=== PATIENT | female | born 2000 | race Caucasian/White ===

== ENCOUNTER 2021-02-09 16:17 | Outpatient (CLI) | payer OTHER, SELFPAY ==
[2021-02-09 16:37] LABS: Basophils Absolute Auto 0.01 K/mm3 (0.00-0.10); Basophils Percent Auto 0.2 % (0.0-1.0); Eosinophils Absolute Auto 0.13 K/mm3 (0.02-0.50); Hematocrit 31.7 % (35.0-49.0); Hemoglobin 10.4 g/dL (12.0-15.0); Immature Granulocyte Absolute 0.02 K/mm3 (0.00-0.00); Immature Granulocyte Percent A 0.3 % (0.0-0.0); Lymphocytes Absolute Auto 1.48 K/mm3 (1.10-4.50); Lymphocytes Percent Auto 22.5 % (18.0-42.0); Mean Corpuscular HGB Conc 32.8 g/dL (32.0-36.0); Mean Corpuscular Hemoglobin 29.9 pg (27.0-31.0); Mean Corpuscular Volume 91.1 fL (78.0-102.0); Mean Platelet Volume 10.1 fl (9.2-11.8); Monocytes Absolute Auto 0.74 K/mm3 (0.10-0.90); Monocytes Percent Auto 11.3 % (2.0-11.0); Neutrophils Absolute Auto 4.2 K/mm3 (1.7-7.2); Neutrophils Percent Auto 63.7 % (50.0-70.0); Platelet Count Result 254 K/mm3 (150-420); Red Blood Count 3.48 M/mm3 (4.20-5.40); Red Cell Distribution Width 13.2 % (11.6-14.4); White Blood Count 6.6 K/mm3 (4.8-10.8)
[2021-02-09 16:41] LABS: Add Urine Microscopic? YES; Appearance Urine Cloudy (Clear); Bilirubin Urine 1+ (Negative); Blood Urine Negative (Negative); Color Urine Yellow (Yellow); Glucose Urine UA Trace (Negative); Ketones Urine Trace (Negative); Leukocyte Esterase Ur 1+ LEU/UL (Negative); Nitrate Urine Negative (Negative); Protein Urine Trace (Negative); Specific Grav Ur 1.025 (1.010-1.020); Urobilinogen Urine >=8.0 mg/dL (0.2-1.0); pH Urine 6.5 (5.0-8.0)
[2021-02-09 16:48] LABS: RBC Urine 0-2 /hpf (0-2); Squamous Epithelial Cell Urine Many /hpf (Few)
[2021-02-09 16:49] LABS: Bacteria Urine 4+ /hpf; Monoscreen Negative (Negative); Negative Monotest Control Negative (Negative); Positive Monotest Control Positive (Positive)
[2021-02-09 17:02] LABS: Alanine Aminotransferase 29 U/L (14-59); Albumin Level 2.5 g/dL (3.4-5.0); Alkaline Phosphatase 80 U/L (46-116); Anion Gap 8 mmol/L (8-16); Aspartate Amino Transferase 14 U/L (15-37); Bilirubin,Total 0.2 mg/dL (0.00-1.00); Blood Urea Nitrogen 6 mg/dL (7-18); Calcium 8.2 mg/dL (8.5-10.1); Carbon Dioxide 27 mmol/L (21-32); Chloride 103 mmol/L (98-108); Estimated Glomerular Filt Rate > 60; Glucose 95 mg/dL (70-99); Osmolality Calculated 283 mOsm/kg (285-295); Potassium 3.3 mmol/L (3.5-5.1); Sodium 138 mmol/L (136-145); Thyroid Stimulating Hormone 1.26 uIU/mL (0.36-3.74); Total Protein 6.6 g/dL (6.4-8.2)
[2021-02-09 17:26] LABS: SARS-CoV-2 RNA PCR Negative (Negative)
== END 2021-02-09 16:18 | disposition home or self-care (01) ==
LOC: CHSLAB 16:20
PROVIDERS: PCP Family Medicine; Visit Provider Family Medicine
DX: R53.83 Other fatigue (principal); R19.7 Diarrhea, unspecified; Z20.822 Contact with and (suspected) exposure to COVID-19
CPT/HCPCS: 36415; 80053; 81001; 84443; 85025; 86308; 87086; 87088; C9803; U0003; U0005

== ENCOUNTER 2021-04-10 09:05 | Observation (INO) | payer OTHER, SELFPAY ==
[2021-04-10] VITALS (16 sets, daily range): BP systolic 90–113; BP diastolic 32–75; PULSE 83–137; TEMP 36.3–36.6; BMI 29.2
--- NOTE | 2021-04-10 09:46 | OBADM ---
This patient, Val Rodriguez, admitted to the OB room 115 at 0905 for observation. Patient/family oriented to hospital policies and general routines including ID bracelet, bed and alarms, visiting hours, pain management, procedures, bathroom and other care routines, personal items, smoking policy, room service/diet, and visiting hours. Patient/Family are encouraged to report perceived risks to care and to ask questions if they do not understand what they are told or what they should do.
[2021-04-10 10:58] LABS: Add Urine Microscopic? YES; Appearance Urine Cloudy (Clear); Bacteria Urine Trace /hpf; Bilirubin Urine Negative (Negative); Blood Urine Negative (Negative); Color Urine Yellow (Yellow); Glucose Urine UA Negative (Negative); Ketones Urine Negative (Negative); Leukocyte Esterase Ur 1+ LEU/UL (Negative); Mucus Urine Rare /lpf; Nitrate Urine Negative (Negative); Protein Urine Negative (Negative); RBC Urine 0-2 /hpf (0-2); Specific Grav Ur 1.013 (1.001-1.035); Squamous Epithelial Cell Urine Many /hpf (Few); Urobilinogen Urine Negative mg/dL (<2.0); WBC Urine 0-3 /hpf
[2021-04-10 11:19] LABS: Fetal Fibronectin Negative
--- NOTE | 2021-04-10 11:39 | PC.NURSE ---
Dr. Moreno informed FFN is negative, but pt continues to contract every 2 mins.
[2021-04-10] MEDS: TERBUTALINE SULFATE 1 MG/ML VIAL 0.25 MG SUB-Q ×2 (12:01→13:41)
--- NOTE | 2021-04-16 07:48 | PM.OBTRLD ---
OB - Triage/Final Diagnosis Visit Information Comments/Additional reasons for admission: I have assessed the risk for this patient, Val Rodriguez, and determined that she would benefit from observation care. Evaluation Laboratory results: Laboratory Tests 04/10/21 04/10/21 10:22 10:24 Urine Color Yellow Urine Appearance Cloudy H Urine pH 6.0 Ur Specific [place] 1.013 Urine Protein Negative Urine Glucose (UA) Negative Urine Ketones Negative Ur Blood (Man) Negative Urine Nitrate Negative Urine Bilirubin Negative Urine Urobilinogen Negative Leukocyte Esterase Rfl 1+ H Urine RBC 0-2 Urine WBC 0-3 Ur Squamous Epith Cells Many H Urine Bacteria Trace Urine Mucus Rare Fibronectin Negative Final Diagnosis (1) Back pain affecting : Code(s): O99.891 - Other specified diseases and conditions complicating ; M54.9 - Dorsalgia, unspecified Status: Acute (2) Pelvic pressure in : Code(s): O26.899 - Other specified related conditions, unspecified trimester; R10.2 - Pelvic and perineal pain Status: Acute
== END 2021-04-10 16:26 | disposition home or self-care (01) ==
LOC: ANHLDR 04-12 14:53 → ANHOBPP 04-12 14:53
PROVIDERS: Admitting Provider Obstetrics & Gynecology; PCP Family Medicine; Visit Provider Obstetrics & Gynecology
DX: O26.893 Other specified pregnancy related conditions, third trimester (principal); R10.2 Pelvic and perineal pain; M54.9 Dorsalgia, unspecified; Z3A.33 33 weeks gestation of pregnancy
CPT/HCPCS: 81001; 82731; G0378; G0379; J3105

== ENCOUNTER 2021-04-15 14:59 | Observation (INO) | payer OTHER, SELFPAY ==
--- NOTE | 2021-04-15 15:20 | OBADM ---
This patient, Val Rodriguez, admitted to the OB room OB Post 116 for observation. Patient/family oriented to hospital policies and general routines including ID bracelet, bed and alarms, visiting hours, pain management, procedures, bathroom and other care routines, personal items, smoking policy, room service/diet, and visiting hours. Patient/Family are encouraged to report perceived risks to care and to ask questions if they do not understand what they are told or what they should do.
[2021-04-15 15:21] VITALS: BP 112/61; PULSE 125
[2021-04-15 15:30] VITALS: BP 112/59; PULSE 109
[2021-04-15 15:46] VITALS: BP 110/71; PULSE 110
[2021-04-15 16:00] VITALS: BP 105/66; PULSE 106; BMI 28.9
[2021-04-15 16:15] VITALS: BP 106/67; PULSE 100
[2021-04-15] MEDS: TERBUTALINE SULFATE 1 MG/ML VIAL 0.25 MG SUB-Q (16:28)
[2021-04-15] MEDS: NIFEdipine 30 MG TAB.ER.24 PO (17:35)
--- NOTE | 2021-05-13 19:06 | PM.OBTRLD ---
OB - Triage/Final Diagnosis Visit Information Comments/Additional reasons for admission: I have assessed the risk for this patient, Val Rodriguez, and determined that she would benefit from observation care. Final Diagnosis (1) False labor: Code(s): O47.9 - False labor, unspecified Status: Acute
== END 2021-04-15 18:35 | disposition home or self-care (01) ==
PROVIDERS: Admitting Provider Obstetrics & Gynecology; PCP Family Medicine; Visit Provider Obstetrics & Gynecology
DX: O47.03 False labor before 37 completed weeks of gestation, third trimester (principal); Z3A.34 34 weeks gestation of pregnancy
CPT/HCPCS: 96372; A9270; G0378; G0379; J3105

== ENCOUNTER 2021-04-27 21:31 | Observation (INO) | payer OTHER, SELFPAY ==
[2021-04-27] VITALS (9 sets, daily range): BP systolic 93–116; BP diastolic 58–75; PULSE 89–110; RESP 18; TEMP 37.1; BMI 28.9
--- NOTE | 2021-04-27 21:31 | OBADM ---
This patient, Val Rodriguez, admitted to the OB room Labor/Delivery/Recovery 106 for observation. Patient/family oriented to hospital policies and general routines including ID bracelet, bed and alarms, visiting hours, pain management, procedures, bathroom and other care routines, personal items, smoking policy, room service/diet, and visiting hours. Patient/Family are encouraged to report perceived risks to care and to ask questions if they do not understand what they are told or what they should do.
--- NOTE | 2021-04-27 21:31 | LDADM ---
This patient, Val Rodriguez, was admitted to Labor/Delivery/Recovery 106 on 04/27/21 at 21:31. Plans for labor, pain management and were discussed with patient. Patient/family oriented to hospital policies and general routines including ID bracelet, bed and alarms, visiting hours, pain management, procedures, bathroom and other care routines, personal items, smoking policy, room service/diet and guest tray routines, infant security routines, and visiting hours. Patient/Family are encouraged to report perceived risks to care and to ask questions if they do not understand what they are told or what they should do. See OBIX for further documentation.
[2021-04-27] MEDS: NIFEdipine 10 MG CAPSULE PO (22:30)
[2021-04-27 22:47] LABS: Add Urine Microscopic? YES; Appearance Urine Cloudy (Clear); Bacteria Urine Trace /hpf; Bilirubin Urine Negative (Negative); Blood Urine Negative (Negative); Color Urine Yellow (Yellow); Glucose Urine UA 1+ mg/dL (Negative); Ketones Urine Negative (Negative); Leukocyte Esterase Ur 3+ LEU/UL (Negative); Mucus Urine Moderate /lpf; Nitrate Urine Negative (Negative); Protein Urine 1+ mg/dL (Negative); RBC Urine 0-2 /hpf (0-2); Specific Grav Ur 1.019 (1.001-1.035); Squamous Epithelial Cell Urine Many /hpf (Few); Transitional Epi Cells Urine Rare /hpf (None Seen); WBC Urine 16-20 /hpf
[2021-04-27] MEDS: LACTATED RINGERS 1,000 ML 999 ML IV CONT (23:30)
[2021-04-28 00:01] VITALS: BP 109/56; PULSE 107
[2021-04-28 00:02] VITALS: BP 109/56; PULSE 107
[2021-04-28 00:16] VITALS: BP 105/53; PULSE 104
--- NOTE | 2021-05-07 07:53 | PM.OBTRLD ---
OB - Triage/Final Diagnosis Visit Information Comments/Additional reasons for admission: I have assessed the risk for this patient, Val Rodriguez, and determined that she would benefit from observation care. Evaluation Laboratory results: Laboratory Tests 04/27/21 22:33 Urine Color Yellow Urine Appearance Cloudy H Urine pH 7.0 Ur Specific [place] 1.019 Urine Protein 1+ H Urine Glucose (UA) 1+ H Urine Ketones Negative Ur Blood (Man) Negative Urine Nitrate Negative Urine Bilirubin Negative Urine Urobilinogen 4.0 H Leukocyte Esterase Rfl 3+ H Urine RBC 0-2 Urine WBC 16-20 H Ur Squamous Epith Cells Many H Ur Transition Epith Cell Rare Urine Bacteria Trace Urine Mucus Moderate H Final Diagnosis (1) Pelvic pressure in : Code(s): O26.899 - Other specified related conditions, unspecified trimester; R10.2 - Pelvic and perineal pain Status: Acute
== END 2021-04-28 01:06 | disposition home or self-care (01) ==
PROVIDERS: Admitting Provider Obstetrics & Gynecology; PCP Family Medicine; Visit Provider Obstetrics & Gynecology
DX: O26.899 Other specified pregnancy related conditions, unspecified trimester (principal); R10.2 Pelvic and perineal pain; Z3A.00 Weeks of gestation of pregnancy not specified
CPT/HCPCS: 81001; 87086; 87088; 96360; 96374; A9270; G0378; G0379; J0131; J7120

== ENCOUNTER 2021-05-09 11:36 | Inpatient (IN) | payer OTHER, SELFPAY ==
[2021-05-09] VITALS (37 sets, daily range): BP systolic 83–103; BP diastolic 38–67; PULSE 58–76; RESP 16; TEMP 36.3–36.9; O2SAT 94–98; BMI 30.6; BMI 30.7
--- NOTE | ~2021-05-09 | US_ITS ---
EXAMINATION: US OB limited DATE: 05/09/2021 13:51 INDICATION: Uncertain presentation. There are trimester. TECHNIQUE: Real-time ultrasound of the pelvis was performed. COMPARISON: None. FINDINGS: There is a single fetus in breech presentation. The placenta is right fundal. heart rate is 11 5 beats per minute (bpm). The amniotic fluid volume is subjectively normal. IMPRESSION: 1. Single living fetus in breech presentation. Reviewed, dictated and finalized at location B.
[2021-05-09] MEDS: LACTATED RINGERS 1,000 ML 999 ML IV CONT ×2 (13:02→14:28)
--- NOTE | 2021-05-09 13:12 | OBADM ---
This patient, Val Rodriguez, admitted to the OB room Labor/Delivery/Recovery 120 for observation. Patient/family oriented to hospital policies and general routines including ID bracelet, bed and alarms, visiting hours, pain management, procedures, bathroom and other care routines, personal items, smoking policy, room service/diet, call light and visiting hours. Patient/Family are encouraged to report perceived risks to care and to ask questions if they do not understand what they are told or what they should do.
[2021-05-09 13:40] LABS: Basophils Percent Auto 0.2 % (0.2-1.2); Eosinophils Absolute Auto 0.1 K/mm3 (0-0.3); Eosinophils Percent Auto 0.9 % (0-4.4); Hematocrit 34.9 % (37.0-47.0); Hemoglobin 11.2 g/dL (12.0-15.0); Immature Granulocyte Absolute 0.05 K/mm3 (0.00-0.031); Immature Granulocyte Percent A 0.5 % (0-0.5); Lymphocytes Absolute Auto 1.66 K/mm3 (0.9-3.2); Lymphocytes Percent Auto 16.6 % (18.3-44.2); Mean Corpuscular HGB Conc 32.1 g/dl (32-36); Mean Corpuscular Hemoglobin 28.1 pg (26-34); Mean Corpuscular Volume 87.7 fl (80-100); Mean Platelet Volume 11.4 fl (7.4-10.4); Monocytes Percent Auto 10.1 % (2.6-8.5); Neutrophils Absolute Auto 7.2 K/mm3 (1.3-6.7); Neutrophils Percent Auto 71.7 % (45.5-73.1); Platelet Count Result 247 k/mm3 (150-375); Red Blood Count 3.98 M/mm3 (4.2-5.4); Red Cell Distribution Width 14.1 % (11.5-14.5)
[2021-05-09] MEDS: CLINDAMYCIN 900 MG/D5W 50 ML 900 MG/50 ML PIGGYBACK 50 MG IVPB (14:29)
--- NOTE | 2021-05-09 14:40 | PM.IMHP ---
H&P: HPI History of Present Illness Date/Time: 05/09/21 14:40 this patient is a 20-year-old 2 para 1001 at 37 weeks gestation who presents in labor and with breech presentation. This was confirmed by ultrasound today. She denies any loss of fluid or vaginal bleeding. She does have regular painful contractions. She denies any chest pain or shortness of breath. She denies any nausea, vomiting, fever, chills. Chief Complaint: Labor Review of Systems Constitutional: Constitutional: Reports no additional constitutional complaints, Denies fatigue, Denies headache(s), Denies lethargy and Denies weakness Eyes: Eyes: Reports no additional eye complaints, Denies blurry vision and Denies photophobia ENT: Reports as per HPI, Denies headache(s) and Denies neck pain Cardiovascular: Cardiovascular: Denies chest pain, Denies diaphoresis, Denies leg edema, Denies palpitations and Denies dyspnea Respiratory: Respiratory: Denies hemoptysis, Denies dyspnea and Denies wheezing Gastrointestinal: Gastrointestinal: Denies abdominal pain, Denies melena, Denies bloating, Denies hematochezia, Denies nausea and Denies vomiting Genitourinary: Genitourinary: Reports no additional female genitourinary complaints Musculoskeletal: Musculoskeletal: Denies joint swelling, Denies neck pain, Denies numbness and Denies stiffness Neurologic: Denies Abnormal speech present, Denies confusion, Denies headache(s), Denies numbness and Denies weakness Psychiatric: Psychiatric: Denies anxiety, Denies confusion, Denies depression, Denies homicidal ideation and Denies suicidal ideation Endocrine: Endocrine: Denies fatigue and Denies palpitations Allergic/Immunologic: Allergic/Immunologic: Denies wheezing FORMERLY [facility], 1928–1983 Family History Family History (Updated 04/28/21 @ 15:57 by Kimberly Shabazz RN) Father Epilepsy Mother Blood clotting disorder Social History Social History Substance use: never Spiritual care concerns: No Meds Home Medications and Allergies Home Medications Medication Instructions Recorded Confirmed Type PNV cmb#95-ferrous fumarate-FA 1 tablet PO DAILY 04/10/21 04/28/21 History [] Slow Fe 142 mg PO DAILY 04/10/21 04/28/21 History calcium carbonate [Tums] 300 mg PO QID PRN 04/10/21 04/28/21 History docusate sodium [Colace] 100 mg PO DAILY 04/10/21 04/28/21 History Allergies Allergy/AdvReac Type Severity Reaction Status Date / Time nitrofurantoin Allergy Severe Muscle Verified 05/09/21 13:44 [From Macrobid] Spasms Penicillins Allergy Rash Verified 05/09/21 13:44 Exam Const: General: healthy appearing, comfortable and no acute distress; No confusion Orientation/consciousness: No confusion Eyes: Direct Ophthalmoscopy: No photophobia Resp: Auscultation: clear to auscultation bilaterally, no rales, no rhonchi and no wheezes Cardio: Rate: regular rate Heart sounds: no click, no murmurs and no rubs GI: Inspection: non-distended GI Palp: No abdominal tenderness Auscultation: normal bowel sounds Neuro: General: No confusion Speech: No Abnormal speech present Extrem: General: normal to inspection, no pedal edema and no calf tenderness H&P: Results Labs Labs: Short CBC 05/09/21 Range/Units 13:31 WBC 10.0 (4.5-10.0) K/mm3 Hgb 11.2 L (12.0-15.0) g/dL Hct 34.9 L (37.0-47.0) % Plt Count 247 (150-375) k/mm3 Assessment and Plan Assessment and plan (1) Breech presentation: Code(s): O32.1XX0 - Maternal care for breech presentation, not applicable or unspecified Status: Acute (2) Term : Code(s): Z34.90 - Encounter for supervision of normal , unspecified, unspecified trimester Status: Acute (3) Active labor: Status: Acute Assessment and Plan: This patient is a 20-year-old multipara at 37 weeks gestation with a fetus in the breech presentation. We have agreed to move forward with delivery. She understands ris
--- NOTE | 2021-05-09 14:43 | WPDHPUPDATE1 ---
History and Physical Update Update Date/Time: 05/09/21 14:43 History and Physical has been reviewed, including an updated exam of the patient. There are NO changes in the patient's condition. Risks, benefits, and alternatives have been discussed and questions answered. Patient agrees to proceed with procedure.
[2021-05-09] MEDS: GENTAMICIN SULFATE INJ 390 MG in DEXTROSE 5% 100 ML 100 MG IVPB (14:45)
--- NOTE | 2021-05-09 15:32 | W.PM.PROC2 ---
Procedure Note - Detailed Date of Procedure 05/09/21 Pre-op Diagnosis breech, labor Post-op Diagnosis same Procedure Performed Low-transverse section Surgeon Boyd Alfonso MD Anesthesia spinal Indications breech, labor Findings Normal gestational maternal anatomy, average size , normal Apgars. Description of Procedure The patient was taken the operating room. She was prepped and draped in dorsal supine position with a leftward tilt. This was done after spinal anesthetic was applied. A low-transverse skin incision was made and carried down till of the fascia with the knife. The fascial incision was made with the knife. The fascial incision was extended laterally with Pereyra scissors. The fascia was tented upward superiorly and inferiorly the rectus muscles were dissected off bluntly. The rectus muscles were the midline. The preperitoneal fat and peritoneum were dissected open bluntly at the superior aspect of the rectus muscles. The peritoneal incision was extended superior and inferior with good position of bladder. The uterine incision was made with a scalpel down to the level of the amniotic cavity. The amniotic cavity was entered bluntly. The was delivered. Breech first, legs then arms were reduced and the head easily delivered. The cord was clamped and cut and the infant was handed off to waiting pediatric staff. Cord bloods were obtained. The placenta was removed manually. The uterus was exteriorized. The uterus was cleared of all clots, debris and membranes. The uterus was closed in 0 Vicryl running lock fashion. An imbricating over a was placed along the incision line as well. The uterus was returned to the abdomen. The gutters were cleared of all clots and debris. The fascia was closed with 0 Vicryl running fashion. The subcutaneous tissue was irrigated pinpoint bleeders were cauterized. The skin was closed with subcuticular absorbable noemy. The skin incision line was covered with glue. The patient tolerated the procedure well. She has taken recovery room in stable condition. Sponge lap and needle counts were correct x2. Estimated Blood Loss 255 Packing Yes Complications No immediate complications Condition stable Disposition PACU
--- NOTE | 2021-05-09 15:43 | PC.NURSE ---
All charting done by Warner Rodriguez RN was done by Ellis GUERRERO
[2021-05-09] MEDS: LACTATED RINGERS 1,000 ML 125 ML IV CONT (15:59)
--- NOTE | 2021-05-09 16:13 | LDADM ---
This patient, Val Rodriguez, was admitted to Labor/Delivery/Recovery 120 on 05/09/21 at 13:15. Plans for labor, pain management and were discussed with patient. Patient/family oriented to hospital policies and general routines including ID bracelet, bed and alarms, visiting hours, pain management, procedures, bathroom and other care routines, personal items, smoking policy, room service/diet and guest tray routines, infant security routines, call light and visiting hours. Patient/Family are encouraged to report perceived risks to care and to ask questions if they do not understand what they are told or what they should do. See OBIX for further documentation.
--- NOTE | 2021-05-09 17:43 | OBPPTRN ---
Patient transferred to post room #281 via stretcher. Support person present. Oriented to unit, room, information board, rooming in, admission packet and security measures. Patient verbalizes understanding.
[2021-05-09] MEDS: OXYTOCIN 30 UNITS/NS 500 ML 30 UNITS/500 ML BAG 125 UNITS IV CONT (17:50)
[2021-05-09] MEDS: KETOROLAC 30 MG/ML VIAL (*BKC) IV PUSH (19:58)
[2021-05-09] MEDS: HYDROcodone/acetaminophen (*CRX) 5-325 MG TABLET 1 TAB PO (22:13)
[2021-05-09] MEDS: DEXTROSE 5%/0.45% SOD CHL 1,000 ML 125 ML IV CONT (22:14)
[2021-05-10] MEDS: HYDROcodone/acetaminophen (*CRX) 5-325 MG TABLET 1 TAB PO ×7 (01:15→21:55)
[2021-05-10 04:30] VITALS: BP 97/50; PULSE 70; RESP 16; TEMP 36.7; O2SAT 96
[2021-05-10] MEDS: IBUPROFEN 600 MG TABLET PO ×3 (04:32→18:45)
[2021-05-10 05:19] LABS: Basophils Percent Auto 0.1 % (0.2-1.2); Eosinophils Percent Auto 0.1 % (0-4.4); Hematocrit 30.8 % (37.0-47.0); Hemoglobin 9.9 g/dL (12.0-15.0); Immature Granulocyte Absolute 0.06 K/mm3 (0.00-0.031); Immature Granulocyte Percent A 0.4 % (0-0.5); Lymphocytes Absolute Auto 1.32 K/mm3 (0.9-3.2); Lymphocytes Percent Auto 9.7 % (18.3-44.2); Mean Corpuscular HGB Conc 32.1 g/dl (32-36); Mean Corpuscular Hemoglobin 27.7 pg (26-34); Mean Platelet Volume 11.5 fl (7.4-10.4); Monocytes Absolute Auto 1.7 K/mm3 (0.1-0.6); Monocytes Percent Auto 12.4 % (2.6-8.5); Neutrophils Absolute Auto 10.5 K/mm3 (1.3-6.7); Neutrophils Percent Auto 77.3 % (45.5-73.1); Platelet Count Result 228 k/mm3 (150-375); Red Blood Count 3.58 M/mm3 (4.2-5.4); Red Cell Distribution Width 13.8 % (11.5-14.5); White Blood Count 13.6 K/mm3 (4.5-10.0)
--- NOTE | 2021-05-10 07:35 | WPDANLDNPN2 ---
Anes-Prog Note L&D-Neuraxial Date/Time: 05/10/21 07:35 Neuraxial medications: intrathecal PF morphine Opiod-related complaints: none Patient feedback: Patient satisfied with post-operative pain management.
--- NOTE | 2021-05-10 07:35 | WPDANLDPN2 ---
Anes-Prog Note L&D Date/Time: 05/10/21 07:36 Comfortable throughout: section Neuraxial method: spinal Epidural/Spinal procedure site: clean & non-tender (slight tenderness without redness) Neuro status: Neuro function grossly intact. Cardiovascular status: normal Respiratory status: normal Airway patency: baseline Mental status: baseline Post-Op hydration status: normal Vital Signs: Last Vital Signs Temp 98.1 F 05/10/21 04:30 Pulse 70 05/10/21 04:30 Resp 16 05/10/21 04:30 BP 97/50 L 05/10/21 04:30 Pulse Ox 96 05/10/21 04:30 Pain score (VAS): 3 I/O: Intake & Output 05/09/21 05/09/21 05/10/21 15:59 23:59 07:59 Intake Total 2159.75 500 787 Output Total 896 542 9574 Balance 1894.75 -20 -563 Post-procedural complaints: none Patient feedback: Patient satisfied with anesthetic care.
[2021-05-10] MEDS: DOCUSATE SODIUM 100 MG CAPSULE PO ×2 (07:57→17:06)
[2021-05-10] MEDS: POLYSACCHARIDE IRON COMPLEX 150 MG CAPSULE PO ×2 (07:57→17:05)
[2021-05-10] MEDS: MULTIVIT/MIN/PREN/FOL AC/IRON TABLET 1 TAB PO (07:57)
[2021-05-10 08:00] VITALS: BP 86/46; PULSE 61; RESP 18; TEMP 36.7
--- NOTE | 2021-05-10 08:02 | PM.OBPNVD ---
OB - PN: Subj Subjective Date/time seen: 05/10/21 08:02 Patient comments: no complaints, pain well controlled, tolerating diet and flatus present [place] baby status: doing well OB - PN: Obj Data Labs CBC & Chem 7: 05/10/21 04:44 Labs: Laboratory Results - last 24 hr 05/09/21 05/09/21 05/10/21 13:31 13:31 04:44 WBC 10.0 13.6 H RBC 3.98 L 3.58 L Hgb 11.2 L 9.9 L Hct 34.9 L 30.8 L MCV 87.7 86.0 MCH 28.1 27.7 MCHC 32.1 32.1 RDW 14.1 13.8 Plt Count 247 228 MPV 11.4 H 11.5 H Immature Gran % (Auto) 0.5 0.4 Neut % (Auto) 71.7 77.3 H Lymph % (Auto) 16.6 L 9.7 L [place] % (Auto) 10.1 H 12.4 H Eos % (Auto) 0.9 0.1 Baso % (Auto) 0.2 0.1 L Lymph # (Auto) 1.66 1.32 [place] # (Auto) 1.0 H 1.7 H Eos # (Auto) 0.1 0.0 Baso # (Auto) 0.0 0.0 Abs Immat Gran (auto) 0.05 H 0.06 H Absolute Neuts (auto) 7.2 H 10.5 H Absolute Nucleated RBC 0.0 0.0 Nucleated RBC % 0.0 0.0 Blood Type A Positive Antibody Screen Negative Imaging Radiologist's impression: Impressions Obstetrics Ultrasound 05/09/21 13:51 IMPRESSION: 1. Single living fetus in breech presentation. OB - PN A/P Plan day: 1 Plan: routine care Time Spent With Patient Time: Total time spent is greater than 50% in coordination of care (as documented) at patient's floor/unit and/or counseling patient: Time with patient: less than 15 minutes Review of Systems Review of Systems: All systems reviewed & are unremarkable except as noted in HPI and below Exam Narrative: Fundus firm. Vaginal flow controlled. Incision dry and intact. Negative homans. No redness, warmth, or pain of lower ext. Const: General: comfortable Chest: Breast/axilla inspection: normal inspection of the breasts Resp: Effort & Inspection: normal respiratory effort Auscultation: clear to auscultation bilaterally Cardio: Rate: regular rate GI: GI Palp: Yes Soft to palpation Psych: Appearance: grossly normal Affect: normal affect Attitude: cooperative Thought content: Yes Normal thought content present Judgement: Good judgement present (Psych)
[2021-05-10 09:20] LABS: Rapid Plasma Reagin Non-Reactive (NonReactive)
--- NOTE | 2021-05-10 12:35 | PC.NURSE ---
Mother called out for assist with feeding, reporting is eagerly waking and latching with slight tenderness most feedings. Mother reports she did not breastfeed first child. is able to freely thrust tongue past gum ridge and flange both lips. Skin is intact on both nipples, no redness and bruising noted. Reviewed feeding cues, frequencies, duration of feedings, feeding elimination flow sheet, and signs of adequate intake. Demonstrated stimulation techniques to wake infant for feeding. Assisted with infant to breast. Reviewed positioning/alignment in cross cradle, holding breast in ?U? hold and guided asymmetrical latch on. Discussed rational for each. Infant able to latch correctly. Reviewed signs of a correct latch, effective nursing and suck swallow ratio. Infant nursed eagerly, with steady draws and frequent swallowing noted. Reviewed the difference of effective vs ineffective nursing. Suggested mother stimulate while feeding to increase stimulation, increase intake and to assist with maintaining deep latch. would slip to shallow latch, mother reports tenderness. Demonstrated how to adjust latch more deeply while feeding. Mother reports she can feel change in latch and has no tenderness. Nipple care reviewed of lanolin after feedings.
[2021-05-10 13:20] VITALS: BP 94/48; PULSE 74; RESP 18; TEMP 36.5; O2SAT 99
--- NOTE | 2021-05-10 14:45 | PC.NURSE ---
PT introductions made and plan of care discussed per post , pain management, breast feeding, daily care activities. PT and significant other both recipients of of care and instructions. PT Received instructions via one to one discussion, mom baby care guide and demonstration. No barriers to learning identified. PT verbalized understanding of such care.
[2021-05-10] MEDS: SIMETHICONE 80 MG TAB.CHEW PO (15:40)
[2021-05-10] MEDS: LANOLIN (LANSINOH) 7.5 GM CREAM 1 APPLIC TOPICAL (15:41)
[2021-05-10] MEDS: TETANUS,DIPHTHERIA,AC PERTUSSIS ADULT (0.5 ML) BOOSTRIX IM (17:04)
[2021-05-10 19:45] VITALS: BP 100/58; PULSE 72; RESP 16; TEMP 37.1; O2SAT 99
[2021-05-11] MEDS: HYDROcodone/acetaminophen (*CRX) 5-325 MG TABLET 1 TAB PO ×4 (01:04→11:22)
[2021-05-11] MEDS: IBUPROFEN 600 MG TABLET PO ×3 (01:04→13:47)
--- NOTE | 2021-05-11 07:19 | PM.OBPNVD ---
OB - PN: Subj Subjective Date/time seen: 05/11/21 07:19 Patient comments: no complaints baby status: doing well OB - PN: Obj Data Labs CBC & Chem 7: 05/10/21 04:44 Labs: Laboratory Results - last 24 hr 05/09/21 13:31 RPR Non-reactive OB - PN A/P Plan day: 2 Plan: routine care and discharge home Time Spent With Patient Time: Total time spent is greater than 50% in coordination of care (as documented) at patient's floor/unit and/or counseling patient: Review of Systems Review of Systems: All systems reviewed & are unremarkable except as noted in HPI and below Exam Narrative: incision CDI Const: General: cooperative
[2021-05-11] MEDS: POLYSACCHARIDE IRON COMPLEX 150 MG CAPSULE PO (07:31)
[2021-05-11] MEDS: MULTIVIT/MIN/PREN/FOL AC/IRON TABLET 1 TAB PO (07:31)
[2021-05-11] MEDS: DOCUSATE SODIUM 100 MG CAPSULE PO (07:32)
[2021-05-11 07:35] VITALS: BP 107/72; PULSE 86; RESP 16; TEMP 36.9; O2SAT 100
--- NOTE | 2021-05-11 10:00 | PC.NURSE ---
Observed mother is able to independently latch with appropriate positioning/alignment. She denies any nipple discomfort, is feeding as required and waking to feed if needed. has had several effective feedings in the past 24 hours, mother chooses to supplement after feedings or to replace with bottle at times. Suggested mother pump if she bottle feeds to stimulate milk supply. Mother reports having a double electric Medela pump thru her insurance at home. is currently meeting outcomes for weight, output, jaundice and feeding frequencies. Mother states she feels confident to continue current plan of breast and bottle feeding at home. Reviewed transition to breast milk, signs of adequate intake, and engorgement/relief. Instructed to call ICP if intake/output less than required. Reviewed regular medications mother is taking. Information provided per Kiersten. Reviewed community resources on the [facility] website and in the Mom/Baby guide. Information on outpatient services provided. Mother has no further questions at this time.
--- NOTE | 2021-05-11 14:20 | PC.NURSE ---
0900 Patient viewed the discharge video Mother & Baby Care, The First Two Weeks . Patient was given the opportunity and encouraged to ask questions. Patient verbalized understanding of information shared and has been given the mother/baby guide for home reference.
[2021-05-12 08:44] VITALS: BP 103/71; PULSE 70; RESP 16; TEMP 37.5; O2SAT 99
--- NOTE | 2021-05-16 07:35 | PM.OBTRLD ---
OB - Triage/Final Diagnosis Visit Information Date of evaluation: 05/09/21 Reason for evaluation: threatened labor Comments/Additional reasons for admission: I have assessed the risk for this patient, Val Rodriguez, and determined that she would benefit from observation care. Evaluation Laboratory results: Laboratory Tests 05/09/21 05/09/21 05/09/21 13:31 13:31 13:31 WBC 10.0 RBC 3.98 L Hgb 11.2 L Hct 34.9 L MCV 87.7 MCH 28.1 MCHC 32.1 RDW 14.1 Plt Count 247 MPV 11.4 H Immature Gran % (Auto) 0.5 Neut % (Auto) 71.7 Lymph % (Auto) 16.6 L [place] % (Auto) 10.1 H Eos % (Auto) 0.9 Baso % (Auto) 0.2 Lymph # (Auto) 1.66 [place] # (Auto) 1.0 H Eos # (Auto) 0.1 Baso # (Auto) 0.0 Abs Immat Gran (auto) 0.05 H Absolute Neuts (auto) 7.2 H Absolute Nucleated RBC 0.0 Nucleated RBC % 0.0 RPR Non-reactive Blood Type A Positive Antibody Screen Negative 05/10/21 04:44 WBC 13.6 H RBC 3.58 L Hgb 9.9 L Hct 30.8 L MCV 86.0 MCH 27.7 MCHC 32.1 RDW 13.8 Plt Count 228 MPV 11.5 H Immature Gran % (Auto) 0.4 Neut % (Auto) 77.3 H Lymph % (Auto) 9.7 L [place] % (Auto) 12.4 H Eos % (Auto) 0.1 Baso % (Auto) 0.1 L Lymph # (Auto) 1.32 [place] # (Auto) 1.7 H Eos # (Auto) 0.0 Baso # (Auto) 0.0 Abs Immat Gran (auto) 0.06 H Absolute Neuts (auto) 10.5 H Absolute Nucleated RBC 0.0 Nucleated RBC % 0.0 RPR Blood Type Antibody Screen
--- NOTE | 2021-05-16 17:47 | PM.OBDSVD ---
DS: Admitting Diagnosis Admitting Diagnosis labor, breech presentation OB - DS: Summary OB Procedures : None OB Procedures Intrapartum: OB Procedures: : None Peripartum Data Procedures: Procedures Operation Date: 05/09/21 15:00 Actual Procedure Side Surgeon p Section Boyd Alfonso MD Time Spent with Patient Time attestation: Total time spent providing and/or coordinating discharge services: Discharge Plan Discharge Attending physician on discharge: Boyd Alfonso Consulting providers: Parul Chavez ; Angélica De La Torre ; Sarath Nguyen V. Discharging Clinician: Angélica De La Torre Patient Disposition: Home, Self-Care Activity: pelvic rest Diet: regular Discharge Instructions: Education: Mom and Baby Guide Given to: Mother Follow-Up: Call your delivering provider's office for an appointment to be seen in: 1 Week Mom and baby should come to the [facility] for the follow-up appointment. Appointment Date/Time: Wednesday, May 12, 2021 at 8:00 am Call [phone] if you are unable to keep your appointment time. BREAST CARE: * Wear a snug supportive bra. * For engorgement discomfort: Breast Feeding: * Apply warm moist washcloths * Express milk as needed to relieve engorgement * Wear loose clothing Bottle Feeding: * May apply ice packs * For sore nipples: * Identify correct latch-on * Apply warm moist washcloths before and after nursing * Air dry nipples after nursing * May apply Lansinoh cream to nipples ABDOMINAL INCISION: (if applicable) * Allow incision to air dry * Do NOT use lotions for powders on your incision * When showering, allow soap and water to run over the incision, but do not wash incision EPISIOTOMY/PERINEAL CARE: * Until bleeding stops, use your cynthia bottle after urinating * Change your pad frequently throughout the day * You may take sitz baths several times a day (fill your bathtub with warm water and soak for 20 minutes.) Do NOT bathe in the water * No tub baths until seen by your physician - You may shower ACTIVITY: * Rest as much as possible. * Do not exercise or lift anything heavier than your baby (such as laundry or other children.) * Avoid stairs or driving as much as possible. * Do not put anything into the vagina. No douching, tampons, or sexual activity until seen by physician. NOTIFY PHYSICIAN IF YOU HAVE ANY QUESTIONS OR IF ANY OF THE FOLLOWING SYMPTOMS OCCUR: * If your episiotomy or incision becomes red, swollen, or more painful than what you have experienced in the hospital. * If your vaginal bleeding becomes foul smelling. * If your vaginal bleeding becomes more heavy than a period or if your bleeding changes from pink to bright red. However, you may pass an occasional walnut-sized clot once or twice for the first week . * If you experience a sharp, shooting pain in you calves. * If you discover a hard, reddened area on your breast or if you experience flu-like symptoms. DIET: * Eat regular, well-balanced meals. * Drink plenty of fluids daily. If , drink to thirst. Follow-up/Referrals: Boyd Alfonso MD [Physician] - 1 Week Discharge Medications: New hydrocodone-acetaminophen 5-325 mg Tablet 1 tablet PO Q3H PRN (Reason: Moderate Pain (4-6)) Qty: 20 RF: 0 Continued docusate sodium [Colace] 100 mg Capsule 100 mg PO DAILY RF: 0 Slow Fe 142 mg (45 mg iron) Tablet Extended Release 142 mg PO DAILY RF: 0 PNV cmb#[id number]-ferrous fumarate-FA [] 28 mg iron- 800 mcg Tablet 1 tablet PO DAILY RF: 0 calcium carbonate [Tums] 300 mg (750 mg) Tablet,Chewable 300 mg PO QID PRN (Reason: Heartburn) RF: 0 Date of admission: 05/09/21 13:15 Primary Care Provider: Stas Pineda Admitting Provider: Boyd Alfonso Attending physician
--- NOTE | 2021-05-18 07:22 | P.DS_ITS ---
DS: Admitting Diagnosis Admitting Diagnosis breech OB - DS: Summary OB Procedures : None OB Procedures Intrapartum: OB Procedures: : None Peripartum Data Procedures: Procedures Operation Date: 05/09/21 15:00 Actual Procedure Side Surgeon p Section Boyd Alfonso MD Time Spent with Patient Time attestation: Total time spent providing and/or coordinating discharge services: Discharge Plan Discharge Attending physician on discharge: Boyd Alfonso Consulting providers: Parul Chavez ; Angélica De La Torre ; Sarath Nguyen V. Discharging Clinician: Angélica De La Torre Patient Disposition: Home, Self-Care Activity: pelvic rest Diet: regular Discharge Instructions: Education: Mom and Baby Guide Given to: Mother Follow-Up: Call your delivering provider's office for an appointment to be seen in: 1 Week Mom and baby should come to the [facility] for the follow-up appointment. Appointment Date/Time: Wednesday, May 12, 2021 at 8:00 am Call [phone] if you are unable to keep your appointment time. BREAST CARE: * Wear a snug supportive bra. * For engorgement discomfort: Breast Feeding: * Apply warm moist washcloths * Express milk as needed to relieve engorgement * Wear loose clothing Bottle Feeding: * May apply ice packs * For sore nipples: * Identify correct latch-on * Apply warm moist washcloths before and after nursing * Air dry nipples after nursing * May apply Lansinoh cream to nipples ABDOMINAL INCISION: (if applicable) * Allow incision to air dry * Do NOT use lotions for powders on your incision * When showering, allow soap and water to run over the incision, but do not wash incision EPISIOTOMY/PERINEAL CARE: * Until bleeding stops, use your cynthia bottle after urinating * Change your pad frequently throughout the day * You may take sitz baths several times a day (fill your bathtub with warm water and soak for 20 minutes.) Do NOT bathe in the water * No tub baths until seen by your physician - You may shower ACTIVITY: * Rest as much as possible. * Do not exercise or lift anything heavier than your baby (such as laundry or other children.) * Avoid stairs or driving as much as possible. * Do not put anything into the vagina. No douching, tampons, or sexual activity until seen by physician. NOTIFY PHYSICIAN IF YOU HAVE ANY QUESTIONS OR IF ANY OF THE FOLLOWING SYMPTOMS OCCUR: * If your episiotomy or incision becomes red, swollen, or more painful than what you have experienced in the hospital. * If your vaginal bleeding becomes foul smelling. * If your vaginal bleeding becomes more heavy than a period or if your bleeding changes from pink to bright red. However, you may pass an occasional walnut- sized clot once or twice for the first week . * If you experience a sharp, shooting pain in you calves. * If you discover a hard, reddened area on your breast or if you experience flu- like symptoms. DIET: * Eat regular, well-balanced meals. * Drink plenty of fluids daily. If , drink to thirst. Follow-up/Referrals: Boyd Alfonso MD [Physician] - 1 Week Discharge Medications: New hydrocodone-acetaminophen 5-325 mg Tablet 1
== END 2021-05-11 14:01 | disposition home or self-care (01) | DRG 540 ==
LOC: ANHLDR 14:14 → ANHOB2 17:48
PROVIDERS: Admitting Provider Obstetrics & Gynecology; PCP Family Medicine; Visit Provider Obstetrics & Gynecology
PROC: 10D00Z1 Extraction of Products of Conception, Low, Open Approach (ICD-10-PCS; CPT 59514; principal; 2021-05-09 14:30)
DX: O69.5XX0 Labor and delivery complicated by vascular lesion of cord, not applicable or unspecified (principal); Z3A.37 37 weeks gestation of pregnancy; Z37.0 Single live birth
CPT/HCPCS: 36415; 76815; 84112; 85025; 86592; 86850; 86900; 86901; 90715; A9270; J1100; J1580; J1885; J2274; J2405; J2590; J7120

== ENCOUNTER 2021-08-17 15:17 | Outpatient (CLI) | payer OTHER, SELFPAY ==
[2021-08-17 16:18] LABS: Influenza A QL RT-PCR Negative (Negative); Influenza B QL RT-PCR Negative (Negative); SARS-CoV-2 RNA PCR Negative (Negative)
== END 2021-08-17 15:18 | disposition home or self-care (01) ==
LOC: CHSLAB 15:18
PROVIDERS: PCP Family Medicine; Visit Provider Family Medicine
DX: J06.9 Acute upper respiratory infection, unspecified (principal); Z20.822 Contact with and (suspected) exposure to COVID-19
CPT/HCPCS: 87502; C9803; U0003; U0005

== ENCOUNTER 2021-08-23 15:24 | Outpatient (CLI) | payer OTHER, SELFPAY ==
[2021-08-23 16:08] LABS: Influenza Control Valid (Valid); SARS-CoV-2 Ag Negative (Negative)
[2021-08-23 16:16] LABS: Strep Group A RT-PCR Negative (Negative)
== END 2021-08-23 15:25 | disposition home or self-care (01) ==
LOC: CHSLAB 15:26
PROVIDERS: PCP Family Medicine; Visit Provider Family Medicine
DX: J00 Acute nasopharyngitis [common cold] (principal); Z20.822 Contact with and (suspected) exposure to COVID-19
CPT/HCPCS: 87426; 87651; 87804; C9803

== ENCOUNTER 2022-10-23 18:47 | Outpatient (CLI) | payer OTHER, SELFPAY ==
[2022-10-23 19:13] LABS: Basophils Absolute Auto 0.03 K/mm3 (0.00-0.10); Basophils Percent Auto 0.3 % (0.0-1.0); Eosinophils Absolute Auto 0.12 K/mm3 (0.02-0.50); Eosinophils Percent Auto 1.1 % (1.0-6.0); Hematocrit 40.4 % (35.0-49.0); Hemoglobin 13.1 g/dL (12.0-15.0); Immature Granulocyte Absolute 0.03 K/mm3 (0.00-0.00); Immature Granulocyte Percent A 0.3 % (0.0-0.0); Lymphocytes Absolute Auto 3.71 K/mm3 (1.10-4.50); Lymphocytes Percent Auto 33.7 % (18.0-42.0); Mean Corpuscular HGB Conc 32.4 g/dL (32.0-36.0); Mean Corpuscular Volume 89.6 fL (78.0-102.0); Mean Platelet Volume 10.7 fl (9.2-11.8); Monocytes Percent Auto 6.4 % (2.0-11.0); Neutrophils Absolute Auto 6.4 K/mm3 (1.7-7.2); Neutrophils Percent Auto 58.2 % (50.0-70.0); Platelet Count Result 289 K/mm3 (150-420); Red Blood Count 4.51 M/mm3 (4.20-5.40); Red Cell Distribution Width 12.4 % (11.6-14.4)
[2022-10-23 19:14] LABS: Add Urine Microscopic? YES; Appearance Urine Clear (Clear); Bilirubin Urine Negative (Negative); Blood Urine Negative (Negative); Color Urine Yellow (Yellow); Glucose Urine UA Negative (Negative); Ketones Urine Trace (Negative); Leukocyte Esterase Ur Negative (Negative); Nitrate Urine Negative (Negative); Protein Urine Negative (Negative); Specific Grav Ur >= 1.030 (1.010-1.020)
[2022-10-23 19:20] LABS: Bacteria Urine Trace /hpf; Mucus Urine Moderate /lpf; RBC Urine 0-2 /hpf (0-2); Squamous Epithelial Cell Urine Moderate /hpf (Few); WBC Urine 0-3 /hpf (0-3)
[2022-10-23 19:55] LABS: Alanine Aminotransferase 48 U/L (14-59); Albumin Level 3.9 g/dL (3.4-5.0); Alkaline Phosphatase 97 U/L (46-116); Anion Gap 5 mmol/L (8-16); Aspartate Amino Transferase 12 U/L (15-37); Bilirubin,Total 0.3 mg/dL (0.00-1.00); Blood Urea Nitrogen 14 mg/dL (7-18); Calcium 8.8 mg/dL (8.5-10.1); Carbon Dioxide 28 mmol/L (21-32); Chloride 105 mmol/L (98-108); Estimated Glomerular Filt Rate > 60; Glucose 97 mg/dL (70-99); Osmolality Calculated 286 mOsm/kg (285-295); Sodium 138 mmol/L (136-145); Thyroid Stimulating Hormone 1.85 uIU/mL (0.36-3.74); Total Protein 7.6 g/dL (6.4-8.2)
== END 2022-10-23 18:48 | disposition home or self-care (01) ==
LOC: CHSLAB 18:51
PROVIDERS: PCP Family Medicine; Visit Provider Family Medicine
DX: R53.83 Other fatigue (principal)
CPT/HCPCS: 36415; 80053; 81001; 84443; 85025

== ENCOUNTER 2023-02-28 16:07 | Outpatient (CLI) | payer OTHER, SELFPAY ==
[2023-02-28 16:39] LABS: Basophils Absolute Auto 0.02 K/mm3 (0.00-0.10); Basophils Percent Auto 0.3 % (0.0-1.0); Eosinophils Absolute Auto 0.16 K/mm3 (0.02-0.50); Eosinophils Percent Auto 2.3 % (1.0-6.0); Hematocrit 40.5 % (35.0-49.0); Hemoglobin 12.9 g/dL (12.0-15.0); Immature Granulocyte Absolute 0.01 K/mm3 (0.00-0.00); Immature Granulocyte Percent A 0.1 % (0.0-0.0); Lymphocytes Absolute Auto 2.15 K/mm3 (1.10-4.50); Lymphocytes Percent Auto 31.3 % (18.0-42.0); Mean Corpuscular HGB Conc 31.9 g/dL (32.0-36.0); Mean Corpuscular Hemoglobin 29.5 pg (27.0-31.0); Mean Corpuscular Volume 92.7 fL (78.0-102.0); Mean Platelet Volume 10.4 fl (9.2-11.8); Monocytes Percent Auto 7.3 % (2.0-11.0); Neutrophils Percent Auto 58.7 % (50.0-70.0); Platelet Count Result 284 K/mm3 (150-420); Red Blood Count 4.37 M/mm3 (4.20-5.40); Red Cell Distribution Width 12.7 % (11.6-14.4); White Blood Count 6.9 K/mm3 (4.8-10.8)
[2023-02-28 16:40] LABS: Appearance Urine Slightly Cloudy (Clear); Bilirubin Urine 1+ (Negative); Blood Urine 2+ (Negative); Glucose Urine UA Negative (Negative); Ketones Urine Negative (Negative); Leukocyte Esterase Ur Negative (Negative); Nitrate Urine Negative (Negative); Protein Urine 1+ (Negative); Specific Grav Ur >= 1.030 (1.010-1.020); pH Urine 5.5 (5.0-8.0)
[2023-02-28 16:48] LABS: Add Urine Microscopic? YES; Bacteria Urine 1+ /hpf; Color Urine Dark Yellow (Yellow); RBC Urine 0-2 /hpf (0-2); Squamous Epithelial Cell Urine Few /hpf (Few); WBC Urine 0-3 /hpf (0-3)
[2023-02-28 17:00] LABS: Alanine Aminotransferase 31 U/L (14-59); Albumin Level 3.6 g/dL (3.4-5.0); Alkaline Phosphatase 96 U/L (46-116); Amylase 50 U/L (25-115); Anion Gap 10 mmol/L (8-16); Aspartate Amino Transferase 14 U/L (15-37); Bilirubin,Total 0.5 mg/dL (0.00-1.00); Blood Urea Nitrogen 15 mg/dL (7-18); Calcium 8.2 mg/dL (8.5-10.1); Carbon Dioxide 24 mmol/L (21-32); Chloride 107 mmol/L (98-108); Estimated Glomerular Filt Rate > 60; Glucose 85 mg/dL (70-99); Lipase 31 U/L (16-77); Osmolality Calculated 291 mOsm/kg (285-295); Potassium 3.9 mmol/L (3.5-5.1); Sodium 141 mmol/L (136-145); Total Protein 7.3 g/dL (6.4-8.2)
[2023-02-28 17:01] LABS: Monoscreen Negative (Negative); Negative Monotest Control Negative (Negative); Positive Monotest Control Positive (Positive)
== END 2023-02-28 16:08 | disposition home or self-care (01) ==
LOC: CHSLAB 16:11
PROVIDERS: PCP Family Medicine; Visit Provider Family Medicine
DX: R11.0 Nausea (principal); J02.9 Acute pharyngitis, unspecified
CPT/HCPCS: 36415; 80053; 81001; 82150; 83690; 85025; 86308

== ENCOUNTER 2023-04-03 16:09 | Outpatient (CLI) | payer OTHER, SELFPAY ==
--- NOTE | ~2023-04-03 | XR_ITS ---
EXAM: XR abdomen obstructive series DATE: 04/03/2023 16:33 HISTORY: CONSTIPATION X 6 MONTHS . COMPARISON: None available. FINDINGS: Clear lung bases. Normal bowel gas pattern. No organomegaly. No abnormal abdominal calcifi cation. Mild scoliosis, otherwise the regional bones and soft tissues normal for age. IMPRESSION: No radiographic evidence of obstruction or ileus. Reviewed, dictated and finalized at location [facility].
== END 2023-04-03 16:10 | disposition home or self-care (01) ==
LOC: CHSIMG 16:11
PROVIDERS: PCP Family Medicine; Visit Provider Family Medicine
DX: R10.84 Generalized abdominal pain (principal)
CPT/HCPCS: 74019

== ENCOUNTER 2023-08-08 11:45 | Emergency (ER) | payer SELFPAY ==
[2023-08-08 11:45] VITALS: BP 135/94; PULSE 91; RESP 16; TEMP 36.3; O2SAT 100
--- NOTE | 2023-08-08 11:52 | ED.URI ---
HPI - URI/Sore Throat General Chief Complaint: Upper Respiratory Infection Stated Complaint: sore throat Time Seen by Provider: 08/08/23 11:52 Source: patient and RN notes reviewed Mode of arrival: ambulatory Limitations: no limitations History of Present Illness MD elicited complaint: cough and sore throat Onset (ago): day(s) (5) Consistency: intermittent Severity: moderate Description of mucous: clear Able to tolerate fluids by mouth: Yes Exacerbating factors: swallowing Relieving factors: nothing Context: other(s) with similar symptoms Associated symptoms: headache, sore throat and nausea Treatments prior to arrival: ibuprofen Related Data Home Medications Medication Instructions Recorded Confirmed escitalopram oxalate 10 mg tablet 10 mg PO DAILY 08/08/23 08/08/23 Allergies Allergy/AdvReac Type Severity Reaction Status Date / Time amoxicillin Allergy Unknown Hives, Verified 08/08/23 12:01 swelling azithromycin Allergy Unknown Hives, Verified 08/08/23 12:01 itching nitrofurantoin Allergy Unknown muscle Verified 08/08/23 12:01 spasms Penicillins Allergy Unknown Hives, Verified 08/08/23 12:01 swelling Review of Systems Review of Systems: All systems reviewed & are unremarkable except as noted in HPI and below PMFSH Past Medical History Medical History (Updated 08/08/23 @ 12:56 by Rebel San MD) No active medical problems Surgical History Surgical History (Updated 08/08/23 @ 12:35 by Rebel San MD) No pertinent past surgical history Family History Family History (Updated 11/07/16 @ 14:29 by DOCTOR UNKNOWN) Father Family history of seizure disorder Other Family history of allergic disorder Family history of malignant neoplasm Hypertension Social History Social History Smoking status: Never smoker Alcohol intake: never Exam Const: General: healthy appearing, no acute distress and alert Nutritional Appearance: well nourished Orientation/consciousness: patient oriented x3 Limitations: no limitations Other: 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 HENMT: Head: normal to inspection Ears: external ears normal Face/Nose/Sinus: Normal external nose present Face and sinus: normal facial exam Mouth: Yes moist mucous membranes Throat: abnormal tonsil bilateral erythema and hypertrophy 2+ and posterior oropharynx abnormal erythema Eyes: Conjunctivae: conjunctivae normal Pupils: Equal, round and reactive pupils present EOM: EOMs intact bilaterally Neck: Neck: lymphadenopathy bilateral anterior cervical soft, mobile and tender Resp: Effort & Inspection: normal respiratory effort Auscultation: clear to auscultation bilaterally Cardio: Rate: regular rate Rhythm: regular rhythm GI: GI Palp: Yes Soft to palpation and No Tenderness to palpation present (GI) Auscultation: normal bowel sounds Back/Spine/Pelvis: Cervical Spine: cervical ROM normal Thoracic/Lumbar Spine: thoraco-lumbar ROM normal Skin: General skin exam: normal color Rashes: no rashes Neuro: General: patient oriented x3, moves all extremities, no focal motor deficits and CN's II-XI intact bilaterally Speech: normal speech Gait exam (Neuro): Normal gait present Extrem: General: normal to inspection and no clubbing, cyanosis or edema Psych: Mental Status: mental status grossly normal Affect: normal affect Attitude: cooperative MDM - URI/Sore Throat Differential Diagnosis Differential diagnosis: Likely upper respiratory infection, viral infection, influenza, pharyngitis and other ( COVID) Lab Data Attestation: I reviewed the patient's lab results. Discharge Plan Discharge Clinical Impression: Acute streptococcal pharyngitis Patient Disposition: Home, Self-Care Condition: Stable Instructions: Antibiotic Form, Strep Throat (ED) Additional Instructions: use Tylenol and or Motrin as needed for aches and pa
[2023-08-08 12:00] VITALS: O2SAT 100
--- NOTE | 2023-08-08 12:30 | PC.NURSE ---
assisted Dr. Jaswinder saeed/ initial pt assesment
[2023-08-08 12:34] LABS: Influenza A QL RT-PCR Negative (Negative); Influenza B QL RT-PCR Negative (Negative); SARS-CoV-2 RNA PCR Negative (Negative)
[2023-08-08 12:51] LABS: Strep Group A RT-PCR DETECTED (Negative)
[2023-08-08 13:06] VITALS: BP 112/94; PULSE 85; RESP 16; TEMP 36.7; O2SAT 96
== END 2023-08-08 13:09 | disposition home or self-care (01) ==
PROVIDERS: Emergency Provider Emergency Medicine; PCP Family Medicine
DX: J02.0 Streptococcal pharyngitis (principal); Z79.899 Other long term (current) drug therapy; Z20.822 Contact with and (suspected) exposure to COVID-19
CPT/HCPCS: 87636; 87651; 99283

== ENCOUNTER 2023-09-23 11:37 | Emergency (ER) | payer OTHER, SELFPAY ==
--- NOTE | ~2023-09-23 | CT_ITS ---
EXAMINATION: CT abdomen pelvis w con DATE: 09/23/2023 13:27 INDICATION: Umbilical pain, known umbilical hernia. Constipation. Nausea. TECHNIQUE: Computed tomography (CT) of the abdomen and pelvis was performed with 100 CC Omnipaque 350 intravenous contrast. Automated exposure control and iterative reconstruction technique were employe d. Exam dose: 380.80 mGy-cm total exam DLP. COMPARISON: 05/15/2019 CT abdomen pelvis FINDINGS: There is minimal dependent atelectasis of the lower lobes. Normal heart size. No pericardia l or pleural effusion. Small sliding hiatal hernia. The liver, gallbladder, bile ducts, spleen, pancreas, pancreatic duct, and adrenal glands and kidneys are unremarkable. No urinary tract calculus or hydroureteronephrosis. The urinary bladder, uterus an d adnexal areas are unremarkable. Normal appendix. There is a prominent of fecal material throughout the colon. No bowel obstruction, b owel wall thickening, pneumatosis or intraperitoneal free air is detected. Normal caliber of the abdominal aorta. No intraperitoneal, retroperitoneal or pelvic mass lesion or a denopathy or ascites is detected. Small fat-containing umbilical hernia. No periumbilical soft tissue thickening or fat stranding. Included skeletal structures are unremarkable. IMPRESSION: Unremarkable small fat-containing umbilical hernia without evidence of inflammation or a bscess, bowel content or strangulation or obstruction Normal appendix Reviewed, dictated and finalized at [facility]. Reviewed, dictated and finalized at location [facility]. 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
[2023-09-23 11:44] VITALS: BP 109/77; PULSE 80; RESP 19; TEMP 36.3; O2SAT 99
--- NOTE | 2023-09-23 12:27 | ED.GENADULT ---
HPI - General Adult General Chief complaint: Abdominal Pain Stated complaint: UMBILICAL HERNIA Time Seen by Provider: 09/23/23 12:18 Source: patient Mode of arrival: ambulatory Limitations: no limitations History of Present Illness HPI narrative: patient is a 22-year-old female with umbilical discomfort. Her pain started in the past few days. She has a known umbilical hernia. Onset (ago): day(s) (3) Location: abdomen ( Umbilicus) Radiation: abdomen ( umbilicus) Severity: moderate Severity scale (1-10): 4 Quality: sharp Pain Consistency: constant Relieving factors: none Exacerbating factors: none Associated symptoms: other ( changes in bowel movement with some constipation) Treatments prior to arrival: none Related Data Home Medications Medication Instructions Recorded Confirmed No Home Medications 09/23/23 09/23/23 Allergies Allergy/AdvReac Type Severity Reaction Status Date / Time nitrofurantoin Allergy Severe Muscle Verified 09/23/23 12:28 [From Macrobid] Spasms Penicillins Allergy Rash Verified 09/23/23 12:28 Review of Systems Review of Systems: All systems reviewed & are unremarkable except as noted in HPI and below Constitutional: Constitutional: Reports no additional constitutional complaints Eyes: Eyes: Reports no additional eye complaints ENT: Reports system reviewed and no additional complaints, except as documented Cardiovascular: Cardiovascular: Reports no additional cardiovascular complaints Respiratory: Respiratory: Reports no additional respiratory complaints Gastrointestinal: Gastrointestinal: Reports no additional gastrointestinal complaints Genitourinary: Genitourinary: Reports no additional female genitourinary complaints Musculoskeletal: Musculoskeletal: Reports no additional musculoskeletal complaints Integumentary/Breasts: Skin/Breast: Reports system reviewed and no additional complaints, except as docu Neurologic: Reports system reviewed and no additional complaints, except as documented Psychiatric: Psychiatric: Reports no additional psychiatric complaints Endocrine: Endocrine: Reports no additional endocrine complaints Hematologic/Lymphatic: Hematologic/Lymphatic: Reports no additional hematologic/lymphatic complaints Allergic/Immunologic: Allergic/Immunologic: Reports no additional allergic/immunologic complaints PMFSH Family History Family History Father Epilepsy Mother Blood clotting disorder Social History Social History Smoking status: Never smoker Substance use: never Spiritual care concerns: No Exam Const: General: healthy appearing Nutritional Appearance: well nourished Orientation/consciousness: patient oriented x3 HENMT: Head: normal to inspection Ears: external ears normal Face/Nose/Sinus: Normal external nose present Eyes: Conjunctivae: conjunctivae normal Pupils: Equal, round and reactive pupils present EOM: EOMs intact bilaterally Neck: Neck: normal visual inspection Chest: Chest palpation & inspection: normal inspection of the chest Resp: Effort & Inspection: normal respiratory effort and not labored Auscultation: clear to auscultation bilaterally and no crackles Cardio: Rate: regular rate Rhythm: regular rhythm Heart sounds: no murmurs GI: Inspection: non-distended GI Palp: Yes Soft to palpation, Yes Tenderness to palpation present (GI) ( umbilical hernia with partial reduction on examination; no discolor), No Guarding due to palpation present (GI), No Rigid due to palpation, Yes Hernia present umbilical 3-10 cm, No Palpable mass present and No Rebound tenderness present Auscultation: normal bowel sounds : General: Yes bladder normal to palpation Back/Spine/Pelvis: Back: no CVA tenderness Skin: General skin exam: normal color Rashes: no rashes Wounds: no wounds Neuro: General: patient oriented x3
[2023-09-23 12:42] LABS: Basophils Absolute Auto 0.04 K/mm3 (0.00-0.10); Basophils Percent Auto 0.6 % (0.0-1.0); Eosinophils Absolute Auto 0.09 K/mm3 (0.02-0.50); Eosinophils Percent Auto 1.3 % (1.0-6.0); Hematocrit 38.6 % (35.0-49.0); Hemoglobin 12.6 g/dL (12.0-15.0); Immature Granulocyte Absolute 0.02 K/mm3 (0.00-0.00); Immature Granulocyte Percent A 0.3 % (0.0-0.0); Lymphocytes Absolute Auto 2.36 K/mm3 (1.10-4.50); Lymphocytes Percent Auto 32.9 % (18.0-42.0); Mean Corpuscular HGB Conc 32.6 g/dL (32.0-36.0); Mean Corpuscular Hemoglobin 29.5 pg (27.0-31.0); Mean Corpuscular Volume 90.4 fL (78.0-102.0); Mean Platelet Volume 10.6 fl (9.2-11.8); Monocytes Absolute Auto 0.53 K/mm3 (0.10-0.90); Monocytes Percent Auto 7.4 % (2.0-11.0); Neutrophils Absolute Auto 4.1 K/mm3 (1.7-7.2); Neutrophils Percent Auto 57.5 % (50.0-70.0); Platelet Count Result 284 K/mm3 (150-420); Red Blood Count 4.27 M/mm3 (4.20-5.40); Red Cell Distribution Width 12.9 % (11.6-14.4); White Blood Count 7.2 K/mm3 (4.8-10.8)
[2023-09-23 12:56] LABS: Partial Thromboplastin Time 28.7 SEC (23.90-30.70); Prothrombin Time 10.8 Seconds (9.50-12.10)
[2023-09-23 12:58] LABS: Alanine Aminotransferase 26 U/L (14-59); Albumin Level 3.7 g/dL (3.4-5.0); Alkaline Phosphatase 77 U/L (46-116); Anion Gap 11 mmol/L (8-16); Aspartate Amino Transferase 12 U/L (15-37); Bilirubin,Total 0.5 mg/dL (0.00-1.00); Blood Urea Nitrogen 8 mg/dL (7-18); Calcium 8.9 mg/dL (8.5-10.1); Carbon Dioxide 25 mmol/L (21-32); Chloride 102 mmol/L (98-108); Estimated CRCL calculation 103 ml/min; Estimated Glomerular Filt Rate > 60; Glucose 87 mg/dL (70-99); Osmolality Calculated 283 mOsm/kg (285-295); Potassium 3.7 mmol/L (3.5-5.1); Sodium 138 mmol/L (136-145); Total Protein 7.3 g/dL (6.4-8.2)
[2023-09-23 13:02] LABS: SPREG INTERNAL CONTROL Positive; Serum Qual hCG Negative
[2023-09-23 13:22] LABS: Lactic Acid Reflex 0.8 mmol/L (0.4-2.0)
[2023-09-23 13:30] VITALS: BP 107/80; PULSE 86; RESP 18; O2SAT 98
--- NOTE | 2023-09-23 13:30 | PC.NURSE ---
PT IS SITTING ON STRETCHER IN EXAM ROOM PLAYING A GAME ON HER PHONE. PT DENIES ANY NEEDS OR COMPLAINTS. PT IS AWAITING LAB RESULTS AT THIS TIME. NAD NOTED. PT REPORTS PAIN HAS IMPROVED, HOWEVER REMAINS. WILL CONTINUE TO MONITOR.
[2023-09-23 14:30] VITALS: BP 107/70; PULSE 84; RESP 18; O2SAT 99
== END 2023-09-23 14:30 | disposition home or self-care (01) ==
PROVIDERS: Emergency Provider Emergency Medicine; PCP Family Medicine
DX: K42.9 Umbilical hernia without obstruction or gangrene (principal)
CPT/HCPCS: 36415; 74177; 80053; 83605; 84703; 85025; 85610; 85730; 99284; Q9967

== ENCOUNTER 2023-10-02 14:09 | Outpatient (CLI) | payer OTHER, SELFPAY ==
--- NOTE | 2023-10-07 10:30 | WPDHOLTEREM ---
Holter/Event Monitor Holter/Event Monitor Date of procedure: 10/02/23 Holter/Event Procedure: 48 Hr Holter Monitor Indications: Dizziness Conclusion: 1. 24 hour holter monitor on 10/02/23. 2. Underlying rhythm is sinus rhythm. HR range 54-145 bpm; average HR 82 bpm. HR at 145 bpm was at 20:32. 3. No premature supraventricular complexes. No supraventricular tachycardia. 4. There is 1 premature ventricular complex. No ventricular tachycardia. 5. No sinoatrial or atrioventricular blocks. No significant pauses greater than 2 seconds. 6. No symptoms available for correlation.
== END 2023-10-02 14:10 | disposition home or self-care (01) ==
LOC: CHSCARD 14:16
PROVIDERS: PCP Family Medicine; Visit Provider Family Medicine
DX: R42 Dizziness and giddiness (principal); R00.2 Palpitations
CPT/HCPCS: 93225; 93226

== ENCOUNTER 2024-05-20 08:18 | Outpatient (CLI) | payer OTHER, SELFPAY ==
[2024-05-20 18:21] LABS: Glucose 2 Hour Gest 133 mg/dL (<155)
[2024-05-21 09:31] LABS: Glucose 3 Hour Gest 68 mg/dL (>/=140)
[2024-05-21 09:31] LABS: Glucose 1 Hour Gest 144 mg/dL (>/=180)
[2024-05-21 09:32] LABS: Glucose Fasting Gestational 82 mg/dL (>/=95)
== END 2024-05-20 08:19 | disposition home or self-care (01) ==
PROVIDERS: PCP Family Medicine; Visit Provider Obstetrics & Gynecology
DX: R73.01 Impaired fasting glucose (principal)
CPT/HCPCS: 36415; 82951; 82952

== ENCOUNTER 2024-05-25 19:02 | Observation (INO) | payer OTHER, SELFPAY ==
[2024-05-25] VITALS (38 sets, daily range): BP systolic 108–118; BP diastolic 63–73; PULSE 81–124; TEMP 36.6; O2SAT 90–100; BMI 29.6
--- NOTE | 2024-05-25 19:02 | PC.NURSE ---
Pt arrives to unit with contractions every five minutes.
--- NOTE | 2024-05-25 20:14 | PC.NURSE ---
Dr. Shore called, update on pt, contractions every 1.5 to 5.5 minutes 10 to 30 seconds, blurry vision, nausea, and vaginal pressure. Orders received to administer terbutaline 0.25 mg, perform cervical exam, draw urinalysis, and fibronectin.
[2024-05-25] MEDS: TERBUTALINE SULFATE 1 MG/ML VIAL 0.25 MG SUB-Q (20:45)
[2024-05-25 20:53] LABS: Add Urine Microscopic? YES; Appearance Urine Cloudy (Clear); Bacteria Urine 3+ /hpf; Bilirubin Urine Negative (Negative); Blood Urine Negative (Negative); Color Urine Yellow (Yellow); Glucose Urine UA Negative (Negative); Ketones Urine Trace mg/dL (Negative); Leukocyte Esterase Ur 2+ LEU/UL (Negative); Nitrate Urine Negative (Negative); Protein Urine Negative (Negative); RBC Urine 0-2 /hpf (0-2); Specific Grav Ur 1.023 (1.001-1.035); Squamous Epithelial Cell Urine Moderate /hpf (Few); WBC Urine 21-50 /hpf (0-3); pH Urine 5.5 (5.0-9.0)
[2024-05-25 21:21] LABS: Fetal Fibronectin Negative
--- NOTE | 2024-05-25 21:57 | PC.NURSE ---
Dr. Shore called, update on pt, contractions every 3 to 27 minutes 20 to 30 seconds after dose of terbutaline, cervical exam, labs, and negative fibronectin. Orders received to discharge pt with instructions to keep next scheduled appointment and when to return to the unit.
--- NOTE | 2024-05-25 22:26 | PC.NURSE ---
Pt discharged with labor instructions, keep next scheduled appointment, and when to return to the unit, pt verbalizes understanding.
--- NOTE | 2024-06-11 11:59 | PM.OBTRLD ---
OB - Triage/Final Diagnosis Visit Information Comments/Additional reasons for admission: I have assessed the risk for this patient, Val Rodriguez, and determined that she would benefit from observation care. Evaluation Laboratory results: Laboratory Tests 05/25/24 20:28 Urine Color Yellow Urine Appearance Cloudy H Urine pH 5.5 Ur Specific [place] 1.023 Urine Protein Negative Urine Glucose (UA) Negative Urine Ketones Trace H Ur Blood (Man) Negative Urine Nitrate Negative Urine Bilirubin Negative Urine Urobilinogen 1.0 Leukocyte Esterase Rfl 2+ H Urine RBC 0-2 Urine WBC 21-50 H Ur Squamous Epith Cells Moderate Urine Bacteria 3+ H Urine Casts 3-5 Fibronectin Negative Final Diagnosis (1) False labor: Code(s): O47.9 - False labor, unspecified Status: Acute
== END 2024-05-25 22:26 | disposition home or self-care (01) ==
PROVIDERS: Admitting Provider Obstetrics & Gynecology; PCP Family Medicine; Visit Provider Obstetrics & Gynecology
DX: O47.03 False labor before 37 completed weeks of gestation, third trimester (principal); Z3A.30 30 weeks gestation of pregnancy
CPT/HCPCS: 81001; 82731; 87086; 96372; G0378; G0379; J3105

== ENCOUNTER 2024-06-18 13:54 | Observation (INO) | payer OTHER, SELFPAY ==
[2024-06-18 14:35] VITALS: BP 107/69; PULSE 100
[2024-06-18 14:45] VITALS: BP 106/65; PULSE 97
[2024-06-18 14:46] VITALS: BMI 31.6
[2024-06-18 14:48] LABS: Add Urine Microscopic? YES; Appearance Urine Cloudy (Clear); Bacteria Urine 1+ /hpf; Bilirubin Urine Negative (Negative); Blood Urine Negative (Negative); Color Urine Yellow (Yellow); Glucose Urine UA Negative (Negative); Ketones Urine Negative (Negative); Leukocyte Esterase Ur 2+ LEU/UL (Negative); Nitrate Urine Negative (Negative); Non Pathogenic Casts 0-2; Protein Urine Negative (Negative); RBC Urine 0-2 /hpf (0-2); Specific Grav Ur 1.016 (1.001-1.035); Squamous Epithelial Cell Urine Moderate /hpf (Few); pH Urine 6.5 (5.0-9.0)
[2024-06-18 15:00] VITALS: BP 111/80; PULSE 95
[2024-06-18 15:15] VITALS: BP 106/78; PULSE 96
[2024-06-18 15:30] VITALS: BP 111/73; PULSE 78
[2024-06-18] MEDS: TERBUTALINE SULFATE 1 MG/ML VIAL 0.25 MG SUB-Q (15:30)
[2024-06-18] MEDS: SODIUM CHLORIDE 0.9% IV 1,000 ML 999 ML IV CONT (15:37)
[2024-06-18] MEDS: ONDANSETRON INJ 4 MG/2 ML VIAL IV PUSH (16:28)
--- NOTE | 2024-06-21 08:57 | P.PNOB_ITS ---
OB - Triage/Final Diagnosis Visit Information Reason for evaluation: threatened labor Comments/Additional reasons for admission: I have assessed the risk for this patient, Val Rodriguez, and determined that she would benefit from observation care. Evaluation Laboratory results: Laboratory Tests 06/18/24 14:28 Urine Color Yellow Urine Appearance Cloudy H Urine pH 6.5 Ur Specific [place] 1.016 Urine Protein Negative Urine Glucose (UA) Negative Urine Ketones Negative Ur Blood (Man) Negative Urine Nitrate Negative Urine Bilirubin Negative Urine Urobilinogen 1.0 Ur Leukocyte Esterase 2+ H Urine RBC 0-2 Urine WBC 11-20 H Ur Squamous Epith Cells Moderate Urine Bacteria 1+ H Urine Casts 0-2
== END 2024-06-18 17:35 ==
PROVIDERS: Admitting Provider Obstetrics & Gynecology; PCP Family Medicine; Visit Provider Obstetrics & Gynecology
DX: O47.03 False labor before 37 completed weeks of gestation, third trimester (principal); Z3A.33 33 weeks gestation of pregnancy
CPT/HCPCS: 81001; 87086; 96372; 96374; 96375; G0378; G0379; J0696; J2405; J3105; J7030

== ENCOUNTER 2024-07-02 14:51 | Observation (INO) | payer OTHER, SELFPAY ==
[2024-07-02 15:19] LABS: Add Urine Microscopic? YES; Appearance Urine Turbid (Clear); Bacteria Urine 1+ /hpf; Bilirubin Urine Negative (Negative); Blood Urine Negative (Negative); Color Urine Yellow (Yellow); Glucose Urine UA Negative (Negative); Ketones Urine Trace mg/dL (Negative); Leukocyte Esterase Ur 1+ LEU/UL (Negative); Nitrate Urine Negative (Negative); Non Pathogenic Casts 0-2; Protein Urine Negative (Negative); RBC Urine 0-2 /hpf (0-2); Specific Grav Ur 1.021 (1.001-1.035); Squamous Epithelial Cell Urine Moderate /hpf (Few)
[2024-07-02 15:23] VITALS: BMI 31.2
[2024-07-02 15:35] VITALS: BP 109/70; PULSE 98
[2024-07-02 16:04] VITALS: BP 109/70; PULSE 100
--- NOTE | 2024-07-02 16:06 | PC.NURSE ---
Dr. Lazaro Yancey updated on FHT, irregular contractions with uterine irritability, urine results and closed cervix. Discharge instructions given
--- NOTE | 2024-07-05 08:44 | PM.OBTRLD ---
OB - Triage/Final Diagnosis Visit Information Reason for evaluation: threatened labor Comments/Additional reasons for admission: I have assessed the risk for this patient, Val Rodriguez, and determined that she would benefit from observation care. Evaluation Laboratory results: Laboratory Tests 07/02/24 15:11 Urine Color Yellow Urine Appearance Turbid H Urine pH 5.0 Ur Specific [place] 1.021 Urine Protein Negative Urine Glucose (UA) Negative Urine Ketones Trace H Ur Blood (Man) Negative Urine Nitrate Negative Urine Bilirubin Negative Urine Urobilinogen 1.0 Leukocyte Esterase Rfl 1+ H Urine RBC 0-2 Urine WBC 11-20 H Ur Squamous Epith Cells Moderate Urine Bacteria 1+ H Urine Casts 0-2
--- NOTE | 2024-07-05 15:49 | P.PNOB_ITS ---
OB - Triage/Final Diagnosis Visit Information Reason for evaluation: decreased movement Comments/Additional reasons for admission: I have assessed the risk for this patient, Val Rodriguez, and determined that she would benefit from observation care. Evaluation Laboratory results: Laboratory Tests 07/02/24 15:11 Urine Color Yellow Urine Appearance Turbid H Urine pH 5.0 Ur Specific [place] 1.021 Urine Protein Negative Urine Glucose (UA) Negative Urine Ketones Trace H Ur Blood (Man) Negative Urine Nitrate Negative Urine Bilirubin Negative Urine Urobilinogen 1.0 Leukocyte Esterase Rfl 1+ H Urine RBC 0-2 Urine WBC 11-20 H Ur Squamous Epith Cells Moderate Urine Bacteria 1+ H Urine Casts 0-2
== END 2024-07-02 16:20 | disposition home or self-care (01) ==
PROVIDERS: Admitting Provider Obstetrics & Gynecology; PCP Family Medicine; Visit Provider Obstetrics & Gynecology
DX: O47.9 False labor, unspecified (principal); O36.8190 Decreased fetal movements, unspecified trimester, not applicable or unspecified; Z3A.00 Weeks of gestation of pregnancy not specified
CPT/HCPCS: 59025; 81001; 87086; G0378; G0379

== ENCOUNTER 2024-07-17 17:43 | Observation (INO) | payer OTHER, SELFPAY ==
[2024-07-17 18:01] VITALS: BP 121/78; PULSE 110
[2024-07-17 18:04] VITALS: TEMP 36.4
[2024-07-17 18:16] VITALS: BP 95/63; PULSE 101
[2024-07-17 18:19] VITALS: BMI 31.6
--- NOTE | 2024-07-17 18:20 | OBADM ---
This patient, aVl Rodriguez, admitted to the OB room Labor/Delivery/Recovery 102 for observation. Patient/family oriented to hospital policies and general routines including ID bracelet, bed and alarms, visiting hours, pain management, procedures, bathroom and other care routines, personal items, smoking policy, room service/diet, and visiting hours. Patient/Family are encouraged to report perceived risks to care and to ask questions if they do not understand what they are told or what they should do.
[2024-07-17 18:31] VITALS: BP 98/66; PULSE 104
[2024-07-17 18:46] VITALS: BP 116/74; PULSE 98
[2024-07-17 18:54] LABS: Add Urine Microscopic? YES; Appearance Urine Clear (Clear); Bacteria Urine 1+ /hpf; Bilirubin Urine Negative (Negative); Blood Urine Negative (Negative); Color Urine Yellow (Yellow); Glucose Urine UA Negative (Negative); Ketones Urine Negative (Negative); Leukocyte Esterase Ur 1+ LEU/UL (Negative); Nitrate Urine Negative (Negative); Non Pathogenic Casts 0-2; Protein Urine Negative (Negative); RBC Urine 0-2 /hpf (0-2); Specific Grav Ur 1.006 (1.001-1.035); Squamous Epithelial Cell Urine Moderate /hpf (Few); Urobilinogen Urine 0.2 mg/dL (<2.0); pH Urine 5.5 (5.0-9.0)
[2024-07-17 20:01] VITALS: BP 114/62; PULSE 90
--- NOTE | 2024-07-17 20:30 | PC.NURSE ---
Pt discharged home undelviered in stable condition per order from Dr. Lazaro Quintanilla. Discharge instructions explained to pt. Pt stated understanding. All questions and concerns answered. Pt ambulated out of unit with all belongings. S.O @ pt side.
--- NOTE | 2024-07-20 07:28 | PM.OBTRLD ---
OB - Triage/Final Diagnosis Visit Information Date of evaluation: 07/19/24 Reason for evaluation: decreased movement Comments/Additional reasons for admission: I have assessed the risk for this patient, Val Arzola Michael, and determined that she would benefit from observation care. Evaluation Laboratory results: Laboratory Tests 07/17/24 18:24 Urine Color Yellow Urine Appearance Clear Urine pH 5.5 Ur Specific [place] 1.006 Urine Protein Negative Urine Glucose (UA) Negative Urine Ketones Negative Ur Blood (Man) Negative Urine Nitrate Negative Urine Bilirubin Negative Urine Urobilinogen 0.2 Leukocyte Esterase Rfl 1+ H Urine RBC 0-2 Urine WBC 11-20 H Ur Squamous Epith Cells Moderate Urine Bacteria 1+ H Urine Casts 0-2
== END 2024-07-17 20:30 | disposition home or self-care (01) ==
PROVIDERS: Admitting Provider Obstetrics & Gynecology; PCP Family Medicine; Visit Provider Obstetrics & Gynecology
DX: O36.8130 Decreased fetal movements, third trimester, not applicable or unspecified (principal); Z3A.37 37 weeks gestation of pregnancy
CPT/HCPCS: 81001; 87086; G0378; G0379

== ENCOUNTER 2024-07-27 15:44 | Inpatient (IN) | payer OTHER, SELFPAY ==
[2024-07-27 19:00] VITALS: BP 135/85; PULSE 102
[2024-07-27 19:12] VITALS: BMI 31.6
--- NOTE | 2024-07-27 19:12 | OBADM ---
This patient, Val Rodriguez, admitted to the OB room Labor/Delivery/Recovery 103 for observation. Patient/family oriented to hospital policies and general routines including ID bracelet, bed and alarms, visiting hours, pain management, procedures, bathroom and other care routines, personal items, smoking policy, room service/diet, and visiting hours. Patient/Family are encouraged to report perceived risks to care and to ask questions if they do not understand what they are told or what they should do.
[2024-07-27 20:01] VITALS: BP 117/78; PULSE 89
[2024-07-27 21:00] VITALS: BP 110/66; PULSE 98
[2024-07-27 22:00] VITALS: BP 109/67; PULSE 126
[2024-07-27 23:00] VITALS: BP 108/61; PULSE 113
[2024-07-28] VITALS (100 sets, daily range): BP systolic 92–141; BP diastolic 49–104; PULSE 61–153; RESP 16–18; TEMP 36.2–37.2; O2SAT 71–100
[2024-07-28] MEDS: LACTATED RINGERS 1,000 ML 999 ML IV CONT (00:16)
[2024-07-28] MEDS: ZOLPIDEM TARTRATE (*CRX) 2.5 MG TABLET PO (00:17)
[2024-07-28] MEDS: ONDANSETRON INJ 4 MG/2 ML VIAL IV PUSH (00:26)
[2024-07-28] MEDS: fentaNYL CITRATE INJ (*CRX) 100 MCG/2 ML VIAL 50 MCG IV PUSH (03:26)
--- NOTE | 2024-07-28 07:13 | PM.IMHP ---
H&P: HPI History of Present Illness Date/Time: 07/28/24 07:13 Chief Complaint: Labor at term Narrative: 23-year-old 3 para 2 with last menstrual period unknown. EDC of 08/02/2024, confirmed by early ultrasound presents at 39 weeks gestation in active labor. She had a previous followed by a trial of labor after has been reviewed with risks and benefits in great detail. PMFSH Past Medical History Medical History No active medical problems Surgical History Surgical History No pertinent past surgical history Family History Family History Father Family history of seizure disorder Father Epilepsy Mother Blood clotting disorder Other Family history of allergic disorder Family history of malignant neoplasm Hypertension Social History Social History Smoking status: Never smoker Alcohol intake: never Substance use: never Spiritual care concerns: No Meds Home Medications and Allergies Home Medications Medication Instructions Recorded Confirmed Type omeprazole 20 mg tablet,delayed 20 mg PO DAILY 07/14/24 07/17/24 History release vits no.126-ferrous fum 1 tablet PO DAILY 07/14/24 07/17/24 History 28 mg iron-folic acid 800 mcg tablet (Classic ) Allergies Allergy/AdvReac Type Severity Reaction Status Date / Time amoxicillin Allergy Unknown Hives, Verified 07/27/24 19:16 swelling azithromycin Allergy Unknown Hives, Verified 07/27/24 19:16 itching nitrofurantoin Allergy Unknown muscle Verified 07/27/24 19:16 spasms Penicillins Allergy Unknown Hives, Verified 07/27/24 19:16 swelling Vital Signs Vital Signs - 24 hr 07/27/24 19:00 07/27/24 20:01 07/27/24 21:00 Temperature Pulse Rate 102 H 89 98 Blood Pressure 135/85 117/78 110/66 Oxygen Delivery 07/27/24 22:00 07/27/24 23:00 07/28/24 00:00 Temperature Pulse Rate 126 H 113 H 99 Blood Pressure 109/67 108/61 115/61 Oxygen Delivery 07/28/24 01:00 07/28/24 03:00 07/28/24 04:01 Temperature Pulse Rate 88 96 67 Blood Pressure 107/60 113/65 92/51 L Oxygen Delivery 07/28/24 04:44 07/28/24 05:00 07/28/24 06:01 Temperature 98.9 F Pulse Rate 75 83 Blood Pressure 101/58 L 103/62 Oxygen Delivery 07/28/24 07:09 07/27/24 19:12 Temperature Pulse Rate 78 Blood Pressure 127/79 Oxygen Delivery Room Air Exam Const: General: cooperative, healthy appearing and comfortable Nutritional Appearance: average body habitus Orientation/consciousness: oriented to person, oriented to place and oriented to time HENMT: Head: normal to inspection Resp: Effort & Inspection: normal respiratory effort Cardio: Rate: regular rate Rhythm: regular rhythm Heart sounds: S1 normal heart sound present and S2 normal heart sound present GI: Inspection: normal to inspection ( Gravid soft uterus) : External Female Exam: normal external appearance Speculum Exam - Vagina: normal appearance of the vagina Speculum Exam - Cervix: normal appearance of the cervix ( cervix 3/70/2. IUPC placed. FHTs reassuring) Assessment and Plan Assessment and plan (1) Term : Code(s): Z34.90 - Encounter for supervision of normal , unspecified, unspecified trimester Status: Acute (2) Previous section: Code(s): Z98.891 - History of uterine scar from previous surgery Status: Acute Assessment and Plan: trial of labor after . She is an epidural candidate.
--- NOTE | 2024-07-28 07:17 | PM.OBPNVD ---
OB - PN: Subj Subjective Date/time seen: 07/28/24 07:17 Patient comments: no complaints and pain well controlled baby status: doing well and nursing well OB - PN A/P Plan day: 1 Plan: routine care Time Spent With Patient Time: Total time spent is greater than 50% in coordination of care (as documented) at patient's floor/unit and/or counseling patient: Time with patient: less than 15 minutes Exam Const: General: cooperative, healthy appearing and comfortable Nutritional Appearance: average body habitus Orientation/consciousness: oriented to person, oriented to place and oriented to time Resp: Effort & Inspection: normal respiratory effort Cardio: Rate: regular rate Rhythm: regular rhythm Heart sounds: S1 normal heart sound present and S2 normal heart sound present GI: Inspection: normal to inspection
--- NOTE | 2024-07-28 07:51 | LDADM ---
This patient, Val Rodriguez, was admitted to Labor/Delivery/Recovery 103 on 07/27/24 at 15:44. Plans for labor, pain management and were discussed with patient. Patient/family oriented to hospital policies and general routines including ID bracelet, bed and alarms, visiting hours, pain management, procedures, bathroom and other care routines, personal items, smoking policy, room service/diet and guest tray routines, infant security routines, and visiting hours. Patient/Family are encouraged to report perceived risks to care and to ask questions if they do not understand what they are told or what they should do. See OBIX for further documentation.
[2024-07-28 07:54] LABS: Basophils Percent Auto 0.3 % (0.2-1.2); Eosinophils Absolute Auto 0.1 K/mm3 (0-0.3); Hematocrit 35.9 % (37.0-47.0); Hemoglobin 11.6 g/dL (12.0-15.0); Immature Granulocyte Absolute 0.05 K/mm3 (0.00-0.031); Immature Granulocyte Percent A 0.4 % (0-0.5); Lymphocytes Percent Auto 20.2 % (18.3-44.2); Mean Corpuscular HGB Conc 32.3 g/dl (32-36); Mean Corpuscular Hemoglobin 28.3 pg (26-34); Mean Corpuscular Volume 87.6 fl (80-100); Mean Platelet Volume 11.8 fl (7.4-10.4); Monocytes Absolute Auto 0.7 K/mm3 (0.1-0.6); Monocytes Percent Auto 5.6 % (2.6-8.5); Neutrophils Absolute Auto 8.6 K/mm3 (1.3-6.7); Neutrophils Percent Auto 72.5 % (45.5-73.1); Platelet Count Result 257 k/mm3 (150-375); Red Cell Distribution Width 13.9 % (11.5-14.5); White Blood Count 11.9 K/mm3 (4.5-10.0)
[2024-07-28] MEDS: LACTATED RINGERS 1,000 ML 125 ML IV CONT (08:17)
[2024-07-28] MEDS: OXYTOCIN 30 UNITS/NS 500 ML 30 UNITS/500 ML BAG IV CONT (08:18)
[2024-07-28 08:27] LABS: Rapid Plasma Reagin Non-Reactive (NonReactive)
[2024-07-28 08:46] LABS: HIV 1/2 Ab P24 Ag Result Negative (Negative)
--- NOTE | 2024-07-28 10:22 | P.PNAN_ITS ---
Anes - Eval Pre Procedure Procedure: labor epidural Date/Time: 07/28/24 10:22 Surgeon: Lazaro Yancey Preop Diagnosis: Pain during labor Pre Op Diagnosis: Labor Patient Data Age: 23 Gender: F Height: 1.6 m Weight: 80.9 kg Last Vital Signs Temp 36.4 C 07/28/24 09:00 Pulse 76 07/28/24 10:02 BP 113/65 07/28/24 10:02 Pulse Ox 99 07/28/24 10:21 O2 Del Method Room Air 07/27/24 19:12 Allergies Allergy/AdvReac Type Severity Reaction Status Date / Time amoxicillin Allergy Unknown Hives, Verified 07/27/24 19:16 swelling azithromycin Allergy Unknown Hives, Verified 07/27/24 19:16 itching nitrofurantoin Allergy Unknown muscle Verified 07/27/24 19:16 spasms Penicillins Allergy Unknown Hives, Verified 07/27/24 19:16 swelling Home Medications Medication Instructions Recorded Confirmed Type omeprazole 20 mg tablet,delayed 20 mg PO DAILY 07/14/24 07/28/24 History release vits no.126-ferrous fum 1 tablet PO DAILY 07/14/24 07/28/24 History 28 mg iron-folic acid 800 mcg tablet (Classic ) Laboratory Tests 07/28/24 07:49 WBC 11.9 H K/mm3 (4.5-10.0) RBC 4.10 L M/mm3 (4.2-5.4) Hgb 11.6 L g/dL (12.0-15.0) Hct 35.9 L % (37.0-47.0) MCV 87.6 fl (80-100) MCH 28.3 pg (26-34) MCHC 32.3 g/dl (32-36) RDW 13.9 % (11.5-14.5) Plt Count 257 k/mm3 (150-375) MPV 11.8 H fl (7.4-10.4) Immature Gran % (Auto) 0.4 % (0-0.5) Neut % (Auto) 72.5 % (45.5-73.1) Lymph % (Auto) 20.2 % (18.3-44.2) [place] % (Auto) 5.6 % (2.6-8.5) Eos % (Auto) 1.0 % (0-4.4) Baso % (Auto) 0.3 % (0.2-1.2) Lymph # (Auto) 2.40 K/mm3 (0.9-3.2) [place] # (Auto) 0.7 H K/mm3 (0.1-0.6) Eos # (Auto) 0.1 K/mm3 (0-0.3) Baso # (Auto) 0.0 K/mm3 (0.0-0.1) Abs Immat Gran (auto) 0.05 H K/mm3 (0.00-0.031) Absolute Neuts (auto) 8.6 H K/mm3 (1.3-6.7) Absolute Nucleated RBC 0.000 K/mm3 (0.0-0.012) Nucleated RBC % 0.0 % (0.0-0.2) RPR Non-reactive (NonReactive) HIV 1&2 Ab/P24 Ag 4thGn Negative (Negative) Blood Type A Positive Antibody Screen Negative Patient hx anesthesia problems: none Family hx anesthesia problems: none Results Review: All pre-operative results and documents have been reviewed as part of the pre- operative evaluation. [facility] Past Medical History Medical History No active medical problems Surgical History Surgical History No pertinent past surgical history Family History Family History Father Family history of seizure disorder Father Epilepsy Mother Blood clotting disorder Other Family history of allergic disorder Family history of malignant neoplasm Hypertension Social History Social History Smoking status: Never smoker Alcohol intake: never Substance use: never Do You Feel Safe in your Home?: Yes Lack of Transportation: No Lack of Food: Never True Current Housing: I Have Housing Concerned About Future Housing: No Difficulty Paying Gas/Electric Bills: No Difficulty Paying for Meds: No Currently Unemployed: No Education: Decline to Answer Difficulty w/ Childcare or Family Care: No Spiritual care concerns: No Exam Day of Procedure 07/28/24 10:22 Patient weight: overweight Heart: regular rate and rhythm Lungs: clear to auscultation and normal air movement Airway: Mallampati scale class II Neurological: alert and oriented
--- NOTE | 2024-07-28 12:14 | PM.OBPRVD ---
OB - Vaginal Delivery Note Procedure Delivery date: 07/28/24 Events: Previous Delivery Induction method: None Delivery augmentation: Rupture of Membranes and Pitocin Delivery monitor: External FHT, Internal FHT and Internal Uterine Route of delivery: Episiotomy description: None Laceration Description: None Quantitative Blood Loss (ml): 61 Anesthesia type: Epidural Disposition: Floor Complications: No immediate complications Narrative: Patient was admitted at 30 weeks gestation in early labor. Artificial rupture membranes performed she received rapid 1st stage of labor to completely dilated she was complete she pushed delivered head spontaneously in the JOSEMANUEL position. Anterior posterior shoulder delivered spontaneously. Cord clamped x2 benefit placed in warmer given Apgars of 8 [id number]. Cord blood was drawn placenta delivered intact spontaneously. Twenty of Pitocin placed IV to help firm the uterus. After speculum all sidewalls no tears lacerations were noted blood loss was 61cc all sponge, needle, instrument counts were correct. There were no immediate complications. Mom and baby doing fine at the time of this dictation Baby Date of : 07/28/24 Time of : 12:05 Gestational Age by Date: 38 Infant gender: Female Weight (pounds): 6 Weight (ounces): 11 presentation: vertex position: Right Occiput Anterior Placenta delivery description: Spontaneous Cord Vessel Description: 3 Vessels score one minute: 8 score five minutes: 9
[2024-07-28] MEDS: OXYTOCIN 30 UNITS/NS 500 ML 30 UNITS/500 ML BAG 125 UNITS IV CONT (12:37)
[2024-07-28] MEDS: IBUPROFEN 600 MG TABLET PO ×2 (12:48→20:20)
--- NOTE | 2024-07-28 14:08 | PM.DS ---
DS: Admitting Diagnosis Discharge Date 07/29/2014 Admitting Diagnosis term DS: Discharge Diagnosis Discharge Diagnosis (1) Previous section: Code(s): Z98.891 - History of uterine scar from previous surgery Status: Acute (2) Term : Code(s): Z34.90 - Encounter for supervision of normal , unspecified, unspecified trimester Status: Acute DS: Summary Hospital Course Reason for hospitalization: patient was admitted in active labor on 07/28/2024 and underwent spontaneous vaginal delivery with epidural anesthesia Hospital Course: patient's hospital course unremarkable. She remained afebrile. She was up, voiding without difficulty, eating regular diet, ambulating, generally without complaints. Time Spent with Patient Time attestation: Total time spent providing and/or coordinating discharge services: DS: Data Data Completed and Pending Labs on day of discharge: Labs from last 24 hours 07/28/24 07:49 WBC 11.9 H RBC 4.10 L Hgb 11.6 L Hct 35.9 L MCV 87.6 MCH 28.3 MCHC 32.3 RDW 13.9 Plt Count 257 MPV 11.8 H Immature Gran % (Auto) 0.4 Neut % (Auto) 72.5 Lymph % (Auto) 20.2 [place] % (Auto) 5.6 Eos % (Auto) 1.0 Baso % (Auto) 0.3 Lymph # (Auto) 2.40 [place] # (Auto) 0.7 H Eos # (Auto) 0.1 Baso # (Auto) 0.0 Abs Immat Gran (auto) 0.05 H Absolute Neuts (auto) 8.6 H Absolute Nucleated RBC 0.000 Nucleated RBC % 0.0 RPR Non-reactive HIV 1&2 Ab/P24 Ag 4thGn Negative Blood Type A Positive Antibody Screen Negative Discharge Plan Discharge Attending physician on discharge: Dale Trevino Discharging Clinician: Dale Trevino Patient Disposition: Home, Self-Care Activity: may shower, no straining and pelvic rest Diet: heart healthy Wound Care Instructions: follow printed instructions Patient Instructions: Antibiotic Form Stand Alone Forms: General Discharge Information Follow-up/Referrals: Dale Trevino MD [Physician] - Discharge Medications: No Action Classic 28 mg iron- 800 mcg Tablet 1 tablet PO DAILY omeprazole 20 mg Tablet,Delayed Release (Dr/Ec) 20 mg PO DAILY Date of admission: 07/27/24 15:44 Primary Care Provider: Stas Pineda Admitting Provider: Dale Trevino Attending physician on admission: Dale Trevino Condition: Stable
[2024-07-28] MEDS: BENZOCAINE 20% AER SPR (*SP) 56 GM CAN 1 SPRAY TOPICAL (14:52)
[2024-07-28] MEDS: WITCH HAZEL 40 PADS 1 PAD TOPICAL (14:52)
--- NOTE | 2024-07-28 15:20 | PC.NURSE ---
Patient transferred to post room #288 via wheelchair. Support person present. Oriented to unit, room, information board, rooming in, admission packet and security measures. Patient verbalizes understanding.
[2024-07-28] MEDS: ACETAMINOPHEN 325 MG TABLET 650 MG PO ×2 (17:16→23:30)
--- NOTE | 2024-07-28 18:53 | PC.NURSE ---
PT introductions made and plan of care discussed per post , pain management, breast/bottle, daily care activities, and security measures in place. PT recipient of such instructions and no barriers to learning. PT received such instructions per one to one discussion, mom baby care guide and demonstrations. PT verbalized understanding of such care.
[2024-07-29 04:00] VITALS: BP 101/64; PULSE 76; RESP 18; TEMP 36.6
[2024-07-29] MEDS: IBUPROFEN 600 MG TABLET PO (04:00)
[2024-07-29 05:06] LABS: Hematocrit 33.7 % (37.0-47.0)
--- NOTE | 2024-07-29 05:31 | PM.OBPNVD ---
OB - PN: Subj Subjective Date/time seen: 07/29/24 05:31 Patient comments: no complaints and pain well controlled baby status: doing well OB - PN: Obj Data Labs 07/29/24 04:04 Labs: Laboratory Results - last 24 hr 07/28/24 07/29/24 07:49 04:04 WBC 11.9 H RBC 4.10 L Hgb 11.6 L 11.0 L Hct 35.9 L 33.7 L MCV 87.6 MCH 28.3 MCHC 32.3 RDW 13.9 Plt Count 257 MPV 11.8 H Immature Gran % (Auto) 0.4 Neut % (Auto) 72.5 Lymph % (Auto) 20.2 [place] % (Auto) 5.6 Eos % (Auto) 1.0 Baso % (Auto) 0.3 Lymph # (Auto) 2.40 [place] # (Auto) 0.7 H Eos # (Auto) 0.1 Baso # (Auto) 0.0 Abs Immat Gran (auto) 0.05 H Absolute Neuts (auto) 8.6 H Absolute Nucleated RBC 0.000 Nucleated RBC % 0.0 RPR Non-reactive HIV 1&2 Ab/P24 Ag 4thGn Negative Blood Type A Positive Antibody Screen Negative OB - PN A/P Plan day: 1 Plan: routine care, discharge home and follow up 6 weeks Time Spent With Patient Time: Total time spent is greater than 50% in coordination of care (as documented) at patient's floor/unit and/or counseling patient: Time with patient: less than 15 minutes Exam Const: General: cooperative, healthy appearing and comfortable Nutritional Appearance: average body habitus Orientation/consciousness: oriented to person, oriented to place and oriented to time Resp: Effort & Inspection: normal respiratory effort Cardio: Rate: regular rate Rhythm: regular rhythm Heart sounds: S1 normal heart sound present and S2 normal heart sound present GI: Inspection: normal to inspection
[2024-07-29] MEDS: DOCUSATE SODIUM 100 MG CAPSULE PO (07:20)
[2024-07-29] MEDS: ACETAMINOPHEN 325 MG TABLET 650 MG PO (07:20)
[2024-07-29] MEDS: MULTIVIT/MIN/PREN/FOL AC/IRON TABLET 1 TAB PO (07:20)
[2024-07-29 08:00] VITALS: BP 106/60; PULSE 66; RESP 17; TEMP 36.6; O2SAT 99
[2024-07-29 12:46] VITALS: BP 106/57; PULSE 70; RESP 16; TEMP 36.6; O2SAT 99
--- NOTE | 2024-07-29 13:42 | WPDANLDPN2 ---
Anes-Prog Note L&D Date/Time: 07/29/24 13:42 Neuraxial method: epidural Epidural/Spinal procedure site: tender Neuro status: Neuro function grossly intact. Cardiovascular status: normal Respiratory status: normal Airway patency: baseline Mental status: baseline Post-Op hydration status: normal Vital Signs: Last Vital Signs Temp 36.6 C 07/29/24 12:46 Pulse 70 07/29/24 12:46 Resp 16 07/29/24 12:46 BP 106/57 L 07/29/24 12:46 Pulse Ox 99 07/29/24 12:46 O2 Del Method Room Air 07/29/24 08:00 Pain score (VAS): 2/10 I/O: Intake & Output 07/28/24 07/29/24 07/29/24 23:59 07:59 15:59 Intake Total 490 Balance 490 Post-procedural complaints: none Patient feedback: Patient satisfied with anesthetic care. patient reports that epidural did not have enough time to set up before delivery. it did not seem to begin working until after baby was delivered.
--- NOTE | 2024-07-29 16:12 | PC.NURSE ---
1315. Mother verbalizes she is able to independently latch infant with appropriate positioning and alignment. She denies any nipple discomfort and is responsively . is currently meeting outcomes for weight, output, jaundice, blood sugar and feeding frequencies of 8-12 times in 24 hours. Mother declines any additional assistance or education at this time. Mother is encouraged to call for assistance if her doesn?t latch, pain with latching, questions or concerns. Discussed with mom if she would like a [facility] referral and mom confirmed that she would like one sent to the [place] office. Discussed with mom her need for a breast pump at home and she confirmed she had one, but would also like to take advantage of the free one a year thru medicaid. We discussed her two pump options and she chose the zomee. Mom nipples measured to ensure proper flange size, she is size 15mm. Mother voiced understanding of information shared along with the mom/baby guide for an additional resource. Reported to the Primary RN.
--- NOTE | 2024-07-29 16:22 | PC.NURSE ---
1400. Zomee breast pump given to mom, and form faxed to [facility]. WIC form filled out and faxed to the [place] office.
[2024-07-30 09:20] VITALS: BP 118/73; PULSE 72; RESP 18; TEMP 37.1; O2SAT 100
== END 2024-07-29 15:23 | disposition home or self-care (01) | DRG 560 ==
LOC: ANHLDR 07-28 14:09 → ANHOB2 07-28 15:24
PROVIDERS: Admitting Provider Obstetrics & Gynecology; PCP Family Medicine; Visit Provider Obstetrics & Gynecology
DX: O34.211 Maternal care for low transverse scar from previous cesarean delivery (principal); O62.3 Precipitate labor; Z37.0 Single live birth; Z3A.39 39 weeks gestation of pregnancy
CPT/HCPCS: 36415; 85014; 85018; 85025; 86592; 86703; 86850; 86900; 86901; A9270; G0432; J2405; J2590; J2795; J3010; J7120

== ENCOUNTER 2024-09-22 17:52 | Outpatient (CLI) | payer OTHER, SELFPAY ==
[2024-09-22 18:08] LABS: Basophils Absolute Auto 0.03 K/mm3 (0.00-0.10); Basophils Percent Auto 0.4 % (0.0-1.0); Eosinophils Absolute Auto 0.09 K/mm3 (0.02-0.50); Eosinophils Percent Auto 1.1 % (1.0-6.0); Hematocrit 37.5 % (35.0-49.0); Immature Granulocyte Absolute 0.03 K/mm3 (0.00-0.00); Immature Granulocyte Percent A 0.4 % (0.0-0.0); Lymphocytes Percent Auto 27.5 % (18.0-42.0); Mean Corpuscular Hemoglobin 27.6 pg (27.0-31.0); Mean Corpuscular Volume 86.2 fL (78.0-102.0); Mean Platelet Volume 10.2 fl (9.2-11.8); Monocytes Absolute Auto 0.56 K/mm3 (0.10-0.90); Neutrophils Absolute Auto 5.08 K/mm3 (1.70-7.20); Neutrophils Percent Auto 63.6 % (50.0-70.0); Platelet Count Result 247 K/mm3 (150-420); Red Blood Count 4.35 M/mm3 (4.20-5.40); Red Cell Distribution Width 15.5 % (11.6-14.4)
[2024-09-22 18:10] LABS: Add Urine Microscopic? YES; Appearance Urine Clear (Clear); Bilirubin Urine Negative (Negative); Blood Urine Negative (Negative); Color Urine Light Yellow (Yellow); Glucose Urine UA Negative (Negative); Ketones Urine Negative (Negative); Leukocyte Esterase Ur 2+ (Negative); Nitrate Urine Negative (Negative); Protein Urine Negative (Negative)
[2024-09-22 18:41] LABS: RBC Urine 0-2 /hpf (0-2)
[2024-09-22 18:42] LABS: Bacteria Urine 1+ /hpf; Squamous Epithelial Cell Urine Many /hpf (Few)
[2024-09-22 18:57] LABS: Alanine Aminotransferase 25 U/L (14-59); Albumin Level 3.4 g/dL (3.4-5.0); Alkaline Phosphatase 107 U/L (46-116); Amylase 49 U/L (25-115); Anion Gap 8 mmol/L (4-12); Aspartate Amino Transferase 12 U/L (15-37); Bilirubin,Total 0.6 mg/dL (0.00-1.00); Blood Urea Nitrogen 8 mg/dL (7-18); Calcium 8.4 mg/dL (8.5-10.1); Carbon Dioxide 27 mmol/L (21-32); Chloride 106 mmol/L (98-108); Estimated Glomerular Filt Rate > 60; Glucose 86 mg/dL (70-99); Osmolality Calculated 289 mOsm/kg (285-295); Potassium 3.8 mmol/L (3.5-5.1); Sodium 141 mmol/L (136-145); Total Protein 6.7 g/dL (6.4-8.2)
== END 2024-09-22 17:53 | disposition home or self-care (01) ==
PROVIDERS: PCP Family Medicine; Visit Provider Family Medicine
DX: R10.9 Unspecified abdominal pain (principal)
CPT/HCPCS: 36415; 80053; 81001; 82150; 85025; 87086

== ENCOUNTER 2024-11-23 15:10 | Emergency (ER) | payer OTHER, SELFPAY ==
[2024-11-23 15:10] VITALS: BP 111/70; PULSE 72; RESP 16; TEMP 36.2; O2SAT 100
--- NOTE | 2024-11-23 15:35 | ED_ITS ---
HPI - Headache General Chief Complaint: Headache Stated Complaint: migraine Time Seen by Provider: 11/23/24 15:28 Source: patient Mode of arrival: ambulatory Limitations: no limitations History of Present Illness HPI Narrative: 24 years old white female, history of migraine headache, drove herself to the emergency room complaining of another migraine headache similar to the past, right frontal, throbbing, associated with nausea and vomiting, she denies any fever, chills, chest pain, shortness of breath, abdominal pain, diarrhea or urinary symptoms. Patient reports some stress lately, has 3 kids, last 1 is 4 -month-old. Not on any migraine headache at this time. Related Data Home Medications ?Medication ?Instructions ?Recorded ?Confirmed ?Last Taken ?Type omeprazole 20 mg tablet,delayed 20 mg PO DAILY 07/14/24 07/28/24 1 Day Ago History release ~07/16/24 vits no.126-ferrous fum 1 tablet PO DAILY 07/14/24 07/28/24 1 Day Ago History 28 mg iron-folic acid 800 mcg ~07/16/24 tablet (Classic ) Allergies Allergy/AdvReac Type Severity Reaction Status Date / Time amoxicillin Allergy Unknown Hives, Verified 07/27/24 19:16 swelling azithromycin Allergy Unknown Hives, Verified 07/27/24 19:16 itching nitrofurantoin Allergy Unknown muscle Verified 07/27/24 19:16 spasms Penicillins Allergy Unknown Hives, Verified 07/27/24 19:16 swelling Review of Systems Review of Systems: All systems reviewed & are unremarkable except as noted in HPI and below PMFSH Past Medical History Medical History No active medical problems Surgical History Surgical History No pertinent past surgical history Family History Family History Father Family history of seizure disorder Father Epilepsy Mother Blood clotting disorder Other Family history of allergic disorder Family history of malignant neoplasm Hypertension Social History Social History Smoking status: Never smoker Alcohol intake: never Substance use: never Do You Feel Safe in your Home?: Yes Lack of Transportation: No Lack of Food: Never True Current Housing: I Have Housing Concerned About Future Housing: No Difficulty Paying Gas/Electric Bills: No Difficulty Paying for Meds: No Currently Unemployed: No Education: Decline to Answer Difficulty w/ Childcare or Family Care: No Spiritual care concerns: No Exam Narrative: General appearance: Well-developed, well-nourished , looks in pain Skin: Normal color Head: Normocephalic, nontraumatic Eyes: Clear conjunctiva ENT: Oropharynx normal, ears normal, nose normal Neck: Supple, nontender Chest and respiratory: Airway patent, no respiratory distress, no accessory muscle use Heart: Regular rate/rhythm Abdomen: Soft, nontender, no organomegaly, quiet bowel sounds Vascular: Normal peripheral pulses, normal capillary refill. Musculoskeletal: Normal range of motion, nontender back Neurologic: Alert and oriented ?3, [employer] is normal as tested, no gross motor deficit Course Vital Signs Vital signs: Vital Signs Temperature 36.2 C L 11/23/24 15:10 Pulse Rate 72 11/23/24 15:10 Respiratory Rate 16 11/23/24 15:10 Blood Pressure 111/70 11/23/24 15:10 Pulse Oximetry 100 11/23/24 15:10 Oxygen Delivery Room Air 11/23/24 15:10 Temperature 36.2 C L 11/23/24 15:10 Pulse Rate 72 11/23/24 15:10 Respiratory Rate 16 11/23/24 15:10 Blood Pressure 111/70 11/23/24 15:10 Pulse Oximetry 100 11/23/24 15:10 Oxygen Delivery Room Air 11/23/24 15:10 MDM - Headache MDM Narrative Medical decision making narrative: differential diagnosis include recurrent migraine headache, stress related No imaging or labs are required at this time patient report her migraine headache is similar to the past Differential Diagnosis Differential diagnosis: Likely other ( as above) Critical Care Time Critical Care Time Critical Care Time: No Discharge Plan Discharge Clinical Impression: Headache, migraine Patient Disposition: Home, Self-Care Condition: Improved Instructions: Acute Headache (ED) Additional Instructions: Return if symptoms are worsening , call your family physician for appointment, take Tylenol as as needed for aches and pain, continue home medications. Patient Language: French Prescriptions: No Action Classic 28 mg iron- 800 mcg Tablet 1 tablet PO DAILY omeprazole 20 mg Tablet,Delayed Release (Dr/Ec) 20 mg PO DAILY Follow-up/Referrals: Stas Pineda MD [Primary Care Provider] -
[2024-11-23 15:45] VITALS: BP 112/68; PULSE 68; RESP 17; O2SAT 100
[2024-11-23] MEDS: SODIUM CHLORIDE 0.9% IV 1,000 ML 999 ML IV CONT (15:58)
[2024-11-23 16:00] VITALS: BP 113/70; PULSE 68; RESP 17; O2SAT 100
[2024-11-23] MEDS: diphenhydrAMINE HCl INJ 50 MG/ML VIAL IV PUSH (16:00)
[2024-11-23] MEDS: KETOROLAC 30 MG/ML VIAL (*BKC) IV PUSH (16:02)
[2024-11-23] MEDS: METOCLOPRAMIDE HCL INJ 10 MG/2 ML VIAL IV PUSH (16:05)
[2024-11-23 16:30] VITALS: BP 104/77; PULSE 67; RESP 17; O2SAT 100
[2024-11-23] MEDS: LORazepam INJ (*CRX) 2 MG/ML VIAL 1 MG IV PUSH (16:57)
[2024-11-23 17:00] VITALS: BP 102/68; PULSE 62; RESP 17; O2SAT 100
--- OUTSIDE RECORDS SUMMARY | 2024-11-23 17:10 | XMS_ITS | Data Portability ---
Author Organization [facility] [place] Address [address] [place] [address] [place] [address] Assessment No assessment recorded. Plan of Treatment Reminders Order Date Submit Date Provider Last Modified By Organization Details Last Modified Time Details Appointments None recorded. Lab None recorded. Referral None recorded. Procedures None recorded. Surgeries section (SURG) 2020 021 [facility], [address], [place], [address], 11:38:38 Imaging US, obstetric, follow-up [address], [facility] [address], [address], [place], [address], 23:15:34 US, obstetric, limited 2020 021 [facility], [facility] [address], [address], [place], [address], 19:51:48 Medication Orders None recorded. Patient TargetsNo targets recorded. Patient InstructionsNo instructions recorded. Reason for Referral None Reported. Results Created Date Observation Date Name Description Value Unit Range Abnormal Flag Note LastModifiedBy Organization Detail LastModifiedTime 05/01/2005/01/2021 CULTU RE: GROUP B STREP SCREE N, REFLE X SUSCE PTIBI LITY result report SEE RESULT S BELOW Test: Cultu re: Group B Strep , Refle x Susce ptibi lity ([facility]/ [facility] ) Speci men Sourc e: Vagin a/Rec billie Speci men Type: Vagin al/Re ctal Speci men Date: 2020 11:31 AM Resul t Date: 2020 4:01 PM Resul t Statu s: Final resul t Abnor mal: No Resul ting Lab: [facility] [address] [facility] [address] Tel: CULTU RE ----- ----- ----- --- No Group B strep isola fabrice at 2 days (rajinder ctive broth enhan cemen t) Not Available [facility] (Lab) [address] [facility], [place], [address], 05/05/2021 17:05:14 04/16/20 21 04/16/2021 US, obste tric, follo w-up No observ ation record ed. [email or web address] [place] [address], [place], [address], 04/16/2021 17:42:32 04/16/20 21 04/16/2021 US, obste tric, follo w-up No observ ation record ed. [email or web address] [address], [facility], [place], [address], 04/17/2021 11:43:04 04/30/20 21 04/30/2021 US, garrett tric, limit ed No observ ation record ed. [email or web address] [place] [address], [place], [address], 04/30/2021 17:17:01 04/30/20 21 04/30/2021 US, obstluciana tric, limit ed No observ ation record ed. [email or web address] [address], [facility], [place], [address], 05/01/2021 15:30:31 05/08/20 21 05/08/2021 US, obste tric, follo w-up No observ ation record ed. nita [place] [address], [place], [address], 05/08/2021 17:58:32 05/08/2005/08/2021 US, obste tric, follo w-up No observ ation record ed. [email or web address] [address], [place], [address], 05/09/2021 18:03:35 05/09/20 21 05/09/2021 US, obste tric, follo w-up No observ ation record ed. [facility] [address], [place], [address], 05/09/2021 17:39:53 Result Notes None recorded. Problems Name Problem SNOMED Code Status Onset Date Resolution Date Notes Provider Name and Address Organization Details Recorded Time Gestatio n period, 31 weeks 68065610 Completed 201510/17/2020 31 weeks gestatio n of pregnanc y;Practi ce ID: 0001 Alejandra barbosa, [facility] 12:48:04 Complica tion of pregnanc y, childbir th and/or puerperi um 094770444 Completed 201510/17/2020 Oth diseases and conditio ns compl preg/chl dbrth;Pr actice ID: 0001 Alejandra barbosa, [facility] 12:48:34 Pregnanc y, childbir th and puerperi um finding Completed 201510/17/2020 Encntr for suprvsn of normal first preg, third trimeste r;Practi ce ID: 0001 Alejandra barbosa, [facility] 12:48:20 prematur e rupture of membrane s 484085809 Completed 201510/17/2020 Pretrm sumit ROM, unsp time betw rupt and onst labr, 3rd tri;Prac jenni ID: 0001 Alejandra Hoover null, [facility] 12:48:24 False labor before 37 complete d weeks of gestatio n [id number] 125220 Completed 201510/17/2020 False labor before 37 complete d weeks of gest, third tri;Prac jenni ID: 0001 Alejandra Hoover null, [facility] 12:48:00 Gestatio n period, 35 weeks 97900647 Completed 201510/17/2020 35 weeks gestatio n of pregnanc y;Practi ce ID: 0001 Alejandra barbosa, [facility] 12:48:06 Normal pregnanc y in multigra jaya 98304388374 4106 Completed 201510/17/2020 Encounte r for suprvsn of normal pregnanc y, third trimeste r;Practi ce ID: 0001 Alejandra Hoover null, [facility] 12:48:13 Prematur e labor 0421538 Completed 201510/17/2020 labor without delivery , third trimeste r;Practi ce ID: 0001 Alejandra Hoover null, [facility] 12:48:22 Gestatio n period, 36 weeks 20435094 Completed 201510/17/2020 36 weeks gestatio n of pregnanc y;Practi ce ID: 0001 Alejandra Hoover null, [facility] 12:48:[address] Concept Completed 201510/17/2020 Decrease d movement s, third trimeste r, unsp;Pra ctice ID: 0001 Alejandra barbosa, [facility] 12:48:28 Gestatio n period, 38 weeks 26708678 Completed 201510/17/2020 38 weeks gestatio n of pregnanc y;Practi ce ID: 0001 Alejandra barbosa, [facility] 12:48:[address] Concept Completed 201510/17/2020 Encntr for cassandra architect exam (general ) (routine ) w/o abn findings ;Recorde d Elsewher e: No Locat ion: [facility] S ource: EHR Animal Health Technician rl: N Practi ce ID: 0001 Zack lable Time: 11:00:00 AM Alejandra barbosa, [facility] 12:48:29 Clinical finding Completed 201510/17/2020 Presence of (intraut erine) contrace ptive device;R ecorded Elsewher e: No Locat ion: [facility] S ource: EHR Animal Health Technician rl: N Practi ce ID: 0001 Zack lable Time: 03:00:00 PM Alejandra barbosa, [facility] 12:47:54 Pregnanc y detectio n examinat ion Completed 201510/17/2020 Encounte r for pregnanc y test, result positive ;Recorde d Elsewher e: No Locat ion: [facility] S ource: EHR Animal Health Technician rl: N Practi ce ID: 0001 Zack lable Time: 11:00:00 AM Alejandra barbosa, [facility] 12:48:15 Pregnanc y, childbir th and puerperi um finding Completed 201510/17/2020 Encounte r for supervis ion of normal 1st pregnanc y, 2nd trimeste r;Record ed Elsewher e: No Locat ion: [facility] S ource: EHR Animal Health Technician rl: N Practi ce ID: 0001 Zack lable Time: 02:00:00 PM Alejandra barbosa, [facility] 12:48:19 Pregnanc y, childbir th and puerperi um finding Completed 201510/17/2020 Encntr for suprvsn of normal first preg, first trimeste r;Record ed Elsewher e: No Locat ion: [facility] S ource: EHR Animal Health Technician rl: N Practi ce ID: 0001 Zack lable Time: 04:00:00 PM Alejandra Hoover chel[place], [facility] 12:48:18 Pregnanc y test negative [id number] Completed 201510/17/2020 Encounte r for pregnanc y test, result negative ;Recorde d Elsewher e: No [facility] S ource: EHR Animal Health Technician rl: N Practi ce ID: 0001 Zack lable Time: 03:00:00 PM Alejandra Kiko barbosa, [facility] 12:48:16 Dizzines s and giddines s [id number] Completed 201510/17/2020 Dizzines s and giddines s;Practi ce ID: 0001 Alejandra Kiko [facility], [facility] 12:47:57 Clinical finding Completed 201510/17/2020 state, incident al;Pract ice ID: 0001 Alejandra Kikoamanda barbosa, [facility] 12:47:52 Gestatio n period, 22 weeks [id number] Completed 201510/17/2020 22 weeks gestatio n of pregnanc y;Record ed Elsewher e: No [facility] Animal Health Technician rl: N Practi ce ID: 0001 Zack lable Time: 02:45:00 PM Alejandra Kiko chel[place], [facility] 12:48:03 Syphilis test finding [id number] Completed 201510/17/2020 Encntr screen for infectio ns w sexl mode of transmis s;Record ed Elsewher e: No [facility] Animal Health Technician rl: N Practi ce ID: 0001 Zack lable Time: 11:00:00 AM Alejandra barbosa [facility] 12:48:31 Lochia finding Completed 201510/17/2020 Encounte r for routine postpart um follow-u p;Record ed Elsewher e: No Locat ion: [facility] S ource: EHR Animal Health Technician rl: N Practi ce ID: 0001 Zack lable Time: 02:15:00 PM Alejandra barbosa, [facility] 12:48:12 Insertio n of intraute rine contrace ptive device Completed 201510/17/2020 Encounte r for insertio n of intraute rine contrace ptive device;R ecorded Elsewher e: No Locat ion: [facility] S ource: EHR Animal Health Technician rl: N Practi ce ID: 0001 Zack lable Time: 03:00:00 PM Alejandra barbosa [facility] 12:48:11 Educatio n Completed 201510/17/2020 Encounte r for other general counseli ng and advice on contrace ption;Re corded Elsewher e: No [facility]: EHR Animal Health Technician rl: N Practi ce ID: 0001 Zack lable Time: 02:15:00 PM Alejandra barbosa [facility] 12:47:59 Gestatio n less than 9 weeks 984270792 Completed 201510/17/2020 Less than 8 weeks gestatio n of pregnanc y;Record ed Elsewher e: No Locat ion: [facility] S ource: EHR Animal Health Technician rl: N Practi ce ID: 0001 Zack lable Time: 11:00:00 AM Alejandra barbosa [facility] 12:48:01 Contrace ptive sheath status 438522987 Completed 201610/17/2020 IUD follow up;Recor ded Elsewher e: No Locat ion: [facility] S ource: EHR Animal Health Technician rl: N Practi ce ID: 0001 Zack lable Time: 06:30:00 PM Alejandra barbosa, [facility] 12:47:56 Infectio n screenin g Completed 201510/17/2020 Encounte r for screenin g for oth infec/pa rastc diseases ;Recorde d Elsewher e: No Locat ion: [facility] S ource: EHR Animal Health Technician rl: N Kiketi ce ID: 0001 Zack lable Time: 11:00:00 AM Alejandra barbosa, [facility] 12:48:09 Secondar y amenorrh ea 574007332 Completed 201510/17/2020 Secondar y amenorrh ea;Recor ded Elsewher e: No Locat ion: [facility] S ource: EHR Animal Health Technician rl: N Kiketi ce ID: 0001 Zack lable Time: 11:00:00 AM Alejandra barbosa [facility] 12:48:25 Term pregnanc y delivere d 29056877 Completed 201510/17/2020 Encounte r for full-ter m uncompli cated delivery ;Practic e ID: 0001 Alejandra barbosa, [facility] 12:48:32 Single live 797157682 Completed 201510/17/2020 Single live ;Pr actice ID: 0001 Alejandra barbosa, [facility] 12:48:26 Pregnanc y 14141322 Completed 202005/15/2021 Mary Bernaltie hl null, [facility] 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 16:35:40 Complete breech presenta tion 92291702 Completed 04/30 u/s for presenta tion Mary Bernaltie hl null, [facility] 16:35:40 Problem Notes None recorded. Procedures Surgical History Date Name Laterality Status Provider Name and Address Organization Details Recorded Time SECTION (SURG) completed Kenyetta Wray [facility] 05/10/2021 11:38:39 Date of Last Pap Smear completed Alejandra Hoover [facility] 10/17/2020 16:26:29 Imaging Results Imaging Date Name Status LastModified by Organiz ation Details LastModified Time 04/16/2021 US, obstetric, follow-up completed [email or web address] [place] [address], [place], [address], 04/16/2021 17:42:32 04/16/2021 US, obstetric, follow-up completed [email or web address], [place], [address], 04/17/2021 11:43:04 04/30/2021 US, obstetric, limited completed [email or web address] [place] [address], [place], [address], 04/30/2021 17:17:01 04/30/2021 US, obstetric, limited completed [email or web address] [address], [place], [address], 05/01/2021 15:30:31 05/08/2021 US, obstetric, follow-up completed nita [place] [address], [place], [address], 05/08/2021 17:58:32 05/08/2021 US, obstetric, follow-up completed [address] [facility], [place], [address], 05/09/2021 18:03:35 05/09/2021 US, obstetric, follow-up completed [address] [facility] [address], [place], [address], 05/09/2021 17:39:53 Procedure Notes None recorded. Medical Equipment None Reported. Allergies Allergen ID Allergen Name Allergen Category Reaction Reaction Severity Criticality Documentation Date Start Date Code Code System Note Provider Name and Address Organization Details Recorded Time 71349 amoxicill in medicatio n Not available Not available Not available 10/19/2020 723 RxNorm Alejandra Hoover [facility], [facility] 15:51:00 31813 Product containin g penicilli n (product) medicatio n Not available Not available Not available 10/19/2020 70131 8001 SNOMED Alejandra Hoover [facility] 15:51:11 26550 Macrobid medicatio n Not available Not available Not available 10/19/2020 15211 1 RxNorm Alejandra Hoover [facility], [facility] 15:51:17 9944 azithromy stella medicatio n Not available Not available Not available 09/01/2020 56588 RxNorm Alejandra Hoover [place], [facility] 16:26:03 Medications Name Sig Start Date Stop Date Status Note LastModified by Organization Details LastModified Time nifedipin e ER 30 mg tablet,ex tended release 24 hr active Not Available Not Available Not Available Miralax 17 gram/dose oral powder take by oral route every day mixed with 8 oz. water, juice, soda, coffee or tea 10/17 completed Prescrib ed Elsewher e: Yes Loca tion: [facility] odify By: modesto marionuntnayana DateTime : 10/17/19 17 06:30:00 PM Not Available Not Available Not Available fluconazo le 150 mg tablet 06/04 completed Not Available Not Available Not Available Vitamin D2 1,250 mcg (50,000 unit) capsule take 1 capsule by oral route every week 10/17 completed Prescrib ed Elsewher e: No Locat ion: [facility] odify By: modesto mitcheller DateTime : 12/27/19 16 03:31:18 PM Not Available Not Available Not Available ketoconaz ole 2 % topical cream 06/04 completed Not Available Not Available Not Available Stool Softener 50 mg capsule take 1 capsule by oral route every day at bedtime as needed 10/17 completed Prescrib ed Elsewher e: Yes Loca tion: [facility] odify By: modesto rosario DateTime : 10/17/19 17 06:30:00 PM Not Available Not Available Not Available Stool Softener active Not Available Not Available Not Available active Not Available Not Avai lable Not Available Triveen-D uo DHA 29 mg-1 mg-400 mg oral pack take 2 by Oral route once for 30 days 12/12 completed Prescrib ed Elsewher e: No Locat ion: [facility] odify By: frnaco rosario DateTime : 11/14/19 16 11:00:00 AM Not Available Not Available Not Available Vitals Date Recorded Body height Body mass index (BMI) Body weight Systolic blood pressure Diastolic blood pressure Provider Name and Address Organization Details Last Updated DateTime 04/30/2021 170.18 cm 26.8 kg/m2 20088.29 527 g 113 mm[Hg] 72 mm[Hg] Leena Padgett [facility] 17:47:55 Date Recorded Body height Body mass index (BMI) Body weight Systolic blood pressure Diastolic blood pressure Provider Name and Address Organization Details Last Updated DateTime 05/07/2021 170.18 cm 27.1 kg/m2 20507.48 001 g 113 mm[Hg] 74 mm[Hg] Alejandra Hoover [facility] 17:48:22 Date Recorded Body height Body mass index (BMI) Body weight Systolic blood pressure Diastolic blood pressure Provider Name and Address Organization Details Last Updated DateTime 05/17/2021 170.18 cm 24 kg/m2 69946.63 g 114 mm[Hg] 65 mm[Hg] Leena [facility] 16:48:24 Date Recorded Body height Body mass index (BMI) Body weight Systolic blood pressure Diastolic blood pressure Provider Name and Address Organization Details Last Updated DateTime 06/04/2021 170.18 cm 23.5 kg/m2 08454.86 g 126 mm[Hg] 75 mm[Hg] Leena [facility] 17:28:30 Social History Question Answer Notes LastModified by Organizat ion Details LastModified Time Tobacco Smoking Status Never Smoker Alejandra Hoover [facility] 10/17/2020 16:28:00 What Is Your Level Of Alcohol Consumption? None Information not available 10/17/2020 If You Are , What Was Your Level Of Alcohol Consumption Prior To ? None [email or web address] Information not available 10/17/2020 What Is Your Level Of Caffeine Consumption? None Information not available 10/17/2020 Do You Use Any Illicit Or Recreational Drugs? No [email or web address] Information not available 10/17/2020 Has Tobacco Cessation Counseling Been Provided? No Information not available 10/17/2020 Do You Or Have You Ever Used Any Other Forms Of Tobacco Or Nicotine? No Information not available 10/17/2020 Sex: Unknown Functional Status Question Answer Note LastModified by Organization D etails LastModified Time What is your exercise level? None [email or web address] Information not available 10/17/2020 Mental Status None recorded. Family History Relationship Description Onset Age of this Age Resolved Age Notes LastModified by Organization Details LastModified Time Father Seizure disorder [email or web address] Not available 2020 16:27:44 Medical History Condition Response Allergies (Food, seasonal, environmental ) N Other N Drug/Latex Allergies/Reactions N Breast Cancer N Blood Transfusion N Lung Disease N Dermatologic Disorders N Defects or Inherited Disease N Breast Problem N Gestational Diabetes N Hematologic disorders N Anesthesia Complications N History of STI N Deep Vein Thrombosis N Polycystic ovary syndrome N Anxiety Disorder N Autoimmune disease N Arthritis N Polyps N Infertility N History of abnormal pap N Acid Reflux (GERD) N Cancer N Varicosities N Stroke N Neurologic/Epilepsy N Endometriosis N High Cholesterol N Headaches N Fibromyalgia N Kidney Disease N Heart Problems N Thyroid Problems N Kidney or Bladder Problems N GI Problems N Eating Disorder N Anemia N Art (IVF or FET) N Psychiatric Illness N Ovarian Cancer N Diabetes N Pulmonary (TB, Asthma) N Hepatitis/Liver Disease N Eczema N Urinary Tract Infection N Abuse/Domestic Violence N Asthma N Trauma/Violence N Depression/ depression N Heart Disease N Pre-Eclampsia N Hypertension N Osteoporosis N Thrombophilias N Gynecological History Statement/Question Response Date of Last Pap Smear 10/19/2020 Current Control Method None Desired Control Method None Date of LMP LMP Obstetrics History GPAL:G 2 P 2 0 0 2 Type Value Full Term 2 Living 2 Total 2 Past Encounters Encounter ID Performer Location Encounter Start Date Encounter Closed Date Diagnosis/Indication Diagnosis SNOMED-CT Code Diagnosis ICD10 Code Diagnosis Note [id number] Parul Chavez [place] [address] [address] 10/19/2020 15:34:19 10/19/2020 17:42:55 Gynecologic examination 70043514 Z01.419 test positive 020658012 Z32.01 Risk factors addressed: Tobacco Cessation, Safe Sexual Practices, environmen dedra, work hazards, travel restrictio ns, seat belt use.Eat a health well balanced diet, avoid alcohol, tobacco, and street drugs. Engage in daily low impact exercise, avoid temperatur e extremes, and cat, rodent, and bird feces.Avoi d travel to areas where zika virus is a concern.Pt desires nipt. States she had cf/sma testing with 1st . Handout given and discussed with patient.Ch ildbirth classes recommende d.New OB sheet given. If previous , counseling .Pt verbalizes that she understand s the importance of above instructio ns.All questions were answered. Patient reminded to have annual well woman examinatio n and address [facility] . Additional precaution bc measures were taken to minimize potential exposure to the Covid-19 virus during this patient s visit, including available hand molding line assistant upon arrive, temperatur e check and being asked a series of screening questions. All staff wore face coverings during this encounter, as well as provided additional cleaning and sanitizing of all surfaces, including countertop s, pens, chairs, door handles, light switches, etc, prior to and following the patient s visit. [id number] Jaylin Martinez [place] [address],[place] [address] 10/19/2020 15:38:04 10/20/2020 08:16:34 test positive 730703417 Z32.01 [id number] [facility] [place] [facility] [address],[place] [address] 11/16/2020 16:36:08 11/16/2020 17:19:10 screening 076836379 Z36.82 [id number] Darío Alfonso MD [place] [address],[place] [address] 11/16/2020 16:39:07 11/17/2020 19:06:39 Routine care 320824373 Z34.91 [id number] Parul Chavez [place] [address],[place] [address] 12/14/2020 16:31:01 12/14/2020 17:27:12 Routine care 765488521 Z34.92 [id number] Almaz Prince [place] [address],[place] [address] 01/04/2021 15:16:00 01/04/2021 16:35:44 screening for malformation 128398014 Z36.3 [id number] Darío Alfonso MD [place] [address],[place] [address] 01/04/2021 15:17:53 01/04/2021 17:06:54 Routine care 690508855 Z34.91 screening 2437 23262 Z36.89 [id number] Darío Alfonso MD [place] [address],[place] [address] 01/18/2021 17:00:27 01/19/2021 15:11:44 Vaginal discharge 813882380 N89.8 [id number] [facility] [address],[place] [address] 01/29/2021 17:45:53 01/29/2021 18:06:13 [id number] [facility] [address],[place] [address] 02/26/2021 10:57:19 02/26/2021 11:36:58 Routine care 965931718 Z34.92 [id number] [facility] [address],[place] [address] 03/12/2021 14:10:38 03/12/2021 14:50:43 Routine care 836524595 Z34.92 [id number] Darío Alfonso MD [place] [address],[place] [address] 03/26/2021 14:21:54 03/26/2021 15:10:34 Routine care 965697873 Z34.91 [id number] Darío Alfonso MD [place] [address],[place] [address] 04/09/2021 15:14:24 04/09/2021 15:55:17 Routine care 709799807 Z34.91 [id number] Almaz Prince [place] [address],[place] [address] 04/16/2021 16:31:54 04/17/2021 15:09:17 Uterine size for dates discrepancy 979279710 O26.843 Z3A.34 [id number] Darío Alfonso MD [place] [address],[place] [address] 04/16/2021 16:34:09 04/17/2021 15:09:33 Routine care 461653896 Z34.91 [id number] [facility] [address],[place] [address] 04/30/2021 16:52:00 04/30/2021 17:16:22 Doyle breech presentation 27397946 O32.1XX9 Z3A.36 [id number] Darío Alfonso MD [place] [address],[place] [address] 04/30/2021 16:52:00 04/30/2021 17:16:22 [id number] Darío Alfonso MD [place] [address],[place] [address] 04/30/2021 17:35:16 05/01/2021 09:48:47 Routine care 724895246 Z34.91 [id number] Parul Applejessica [place] [address],[place] [address] 05/07/2021 17:41:23 05/09/2021 15:37:09 Routine care 600804912 Z34.92 Breech presentation [id number] O32.1XX9 [id number] [facility] [address],[place] [address] 05/08/2021 16:56:49 05/08/2021 23:15:34 Uterine size for dates discrepancy 902088583 O26.843 O32.1XX9 Z3A.37 [id number] Darío Alfonso MD [place] [address],[place] [address] 05/17/2021 16:31:03 05/17/2021 17:08:37 Postoperative care 248669540 Z48.89 This patient is a 20-year-ol d female presents for postop follow-up. She is 1 week postop from a delivery. She has no complaints . Her incisions are clean dry and intact. She will follow-up in 3 weeks. Her mood is good. Her baby is doing well. [id number] Darío Alfonso MD [place] [address] [address] 06/04/2021 17:07:55 06/04/2021 18:16:20 care [id number] Z39.2 This patient is a 20-year-ol d female presents for follow-up. She is 4 weeks from a delivery. She is bottle feeding. She is not bleeding. Her baby is doing well. The her mood is good. She is interested in having her get a vasectomy, she will likely get [place] if that does not go forward. They have not had sex. Health Concerns Section Related Observation LastModified by Organization Detai ls LastModified Time None Recorded Concern Status LastModified by Organization Details LastModified Time None Recorded Advance Directives Directive None Recorded Payers Encounter Date Sequence Insurance Name Policy Number Policy Guerrero Covered Member ID Guerrero Member ID Guarantor Name 04/30/2021 1 [facility] ON OR AFTER 03/15/21 (MEDICAID REPLACEMENT - HMO) Val Rodriguez [id number] Val Rodriguez 05/07/2021 1 [facility] ON OR AFTER 03/15/21 (MEDICAID REPLACEMENT - HMO) Val Rodriguez [id number] Val Rodriguez 05/08/2021 1 [facility] ON OR AFTER 03/15/21 (MEDICAID REPLACEMENT - HMO) Val Rodriguez [id number] Val Rodriguez 05/17/2021 1 [facility] ON OR AFTER 03/15/21 (MEDICAID REPLACEMENT - HMO) Val Rodriguez [id number] Val Rodriguez 06/04/2021 1 [facility] ON OR AFTER 03/15/21 (MEDICAID REPLACEMENT - HMO) Val Rodriguez [id number] Val Rodriguez Notes Date Note Type Note Provider Name and Address Organization Details Recorded Time 05/17/2021 text/html This patient is a 20-year-old female presents for postop follow-up. She is 1 week postop from a delivery. She has no complaints. Her incisions are clean dry and intact. She will follow-up in 3 weeks. Her mood is good. Her baby is doing well. Darío Alfonso MD [address], [place], [address], [facility] 05/17/2021 16:58:03 06/04/2021 text/html This patient is a 20-year-old female presents for follow-up. She is 4 weeks from a delivery. She is bottle feeding. She is not bleeding. Her baby is doing well. The her mood is good. She is interested in having her get a vasectomy, she will likely get [place] if that does not go forward. They have not had sex. Darío Alfonso MD [address], [place], [address], [facility] 06/04/2021 17:51:41 OBGyn Episode Ob Episode Information Episode Created Date Number of Fetuses Patient Bloodtype Patient rh Status Prepregnancy Weight lbs Domestic Partner Domestic Partner Phone Father Name Election Clerk Status 10/17/19 21 1 CLOSED Fetus Data First Name Last Name Admitted to NICU Weight (g) Sex Living Outcome Pediatric Complications Fetus ID Race Codes Race Delivery Type 3259.96 5704 M Full Term 7641 Vaginal Delivery Ward Calculation Initial Ward Date Initial Exam Date Initial Exam Provider Initial Ultrasound Date Last Menstrual Period Date Ultra Sound Weeks Gestation 0 Eighteen To Twenty Week Ward Update Ultra Sound Date Fundal Height At Umbil Quickening Date Ultra Sound Latest Weeks Gestation Final Ward Confirmed By Final Ward Confirmed Date Final Ward Date Ultra Sound Latest Days Gestation 0 0 Menstrual History Last Menstrual Date Menses Monthly On Bcp Conception Prior Menses Frequency Hcg Plus Date Menarche Onset Age Delivery Information Delivery Date Delivery Type Labor Anesthesia Weeks Gestation Incision Type Labor Labor Length Hrs Delivered By Post Complications Tubal Sterilization Discharge Date Comments 6 38.2 nucal cord x1 Reece Discharge Information Feeding Method Contraceptive Method Maternal HG B and HCT Levels Ob Episode Information Episode Created Date Number of Fetuses Patient Bloodtype Patient rh Status Prepregnancy Weight lbs Domestic Partner Domestic Partner Phone Father Name Election Clerk Status 11/17/19 21 1 A Positive 146 CLOSED Fetus Data First Name Last Name Admitted to NICU Weight (g) Sex Living Outcome Pediatric Complications Fetus ID Race Codes Race Delivery Type 3458.63 9 F Full Term terminal meconium [id number] Primary Problems Problem Notes Pt consented to cf/sma via p swapna 11/17/20 since no records of cf/sma in chart and might be old results with less mutations. 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 Ward Calculation Initial Ward Date Initial Exam Date Initial Exam Provider Initial Ultrasound Date Last Menstrual Period Date Ultra Sound Weeks Gestation 05/26/2021 11/16/2020 10/19/2020 8 Eighteen To Twenty Week Ward Update Ultra Sound Date Fundal Height At Umbil Quickening Date Ultra Sound Latest Weeks Gestation Final Ward Confirmed By Final Ward Confirmed Date Final Ward Date Ultra Sound Latest Days Gestation 0 [email or web address] 11/16/2020 05/26/20 21 0 Pre-clifford Flowsheet Flowsheet Date 11/16/2020 Diehl Score Blood Edema Fundus Height Fundus Units Glucose Ketones Leukocytes Nitrite Labor Signs Protein Cervic Dilation Cervic Effacement Cervic Station 12 Type Weight in lbs Pre/Post Dialysis Refused Weight 143.917213918640 BP Diastolic BP Location Tested BP Systolic BP Type 77 R arm 122 sitting Fetus Heart Rate Present A 157 Fetus Movement Comments this patient is a 20-year-ol d 2 para 1001 at 12 weeks and 5 days gestation who presents for initial care. She has an unremarkable medical, surgical, social history. Her obstetric history is normal. She had a term vaginal of a 7 lb infant. To begin routine care. She is having genetic testing. Flowsheet Date 12/14/2020 Diehl Score Blood Edema Fundus Height Fundus Units Glucose Ketones Leukocytes Nitrite Labor Signs Protein Cervic Dilation Cervic Effacement Cervic Station none trace Type Weight in lbs Pre/Post Dialysis Refused Weight 144.593221023397 BP Diastolic BP Location Tested BP Systolic BP Type 66 99 Fetus Heart Rate Present A 144 Fetus Movement A Yes Comments Doing well. Feeling great. R TC in 4 weeks for routine visit and baseline anatomy. Flowsheet Date 01/04/2021 Diehl Score Blood Edema Fundus Height Fundus Units Glucose Ketones Leukocytes Nitrite Labor Signs Protein Cervic Dilation Cervic Effacement Cervic Station Type Weight in lbs Pre/Post Dialysis Refused BP Diastolic BP Location Tested BP Systolic BP Type Fetus Heart Rate Present Fetus Movement Comments Flowsheet Date 01/04/2021 Diehl Score Blood Edema Fundus Height Fundus Units Glucose Ketones Leukocytes Nitrite Labor Signs Protein Cervic Dilation Cervic Effacement Cervic Station 19 trace Type Weight in lbs Pre/Post Dialysis Refused Weight 147.494873140461 BP Diastolic BP Location Tested BP Systolic BP Type 68 R arm 109 sitting Fetus Heart Rate Present A 146 Fetus Movement A Yes Comments discussed on the prote in, to have alpha fetoprotein today, discussed ultrasound results, double renal artery and paratubal cyst. Flowsheet Date 01/18/2021 Diehl Score Blood Edema Fundus Height Fundus Units Glucose Ketones Leukocytes Nitrite Labor Signs Protein Cervic Dilation Cervic Effacement Cervic Station 22 trace 0cm 0% Type Weight in lbs Pre/Post Dialysis Refused Weight 151.485120186011 BP Diastolic BP Location Tested BP Systolic BP Type 67 R arm 109 sitting Fetus Heart Rate Present A 145 Fetus Movement Comments She patient was evaluated fo r cramping, pressure, vaginal discharge. Pelvic exam was performed. Cervix long thick and closed. There is some excess vaginal mood cervical mucus. She is given reassurance Flowsheet Date 01/29/2021 Diehl Score Blood Edema Fundus Height Fundus Units Glucose Ketones Leukocytes Nitrite Labor Signs Protein Cervic Dilation Cervic Effacement Cervic Station none 22 trace Type Weight in lbs Pre/Post Dialysis Refused Weight 151.467468310123 BP Diastolic BP Location Tested BP Systolic BP Type 74 108 Fetus Heart Rate Present A 150 Fetus Movement A Yes Comments Visit per Z. Due SNM. Doing well. Flowsheet Date 02/26/2021 Diehl Score Blood Edema Fundus Height Fundus Units Glucose Ketones Leukocytes Nitrite Labor Signs Protein Cervic Dilation Cervic Effacement Cervic Station none 28 trace Type Weight in lbs Pre/Post Dialysis Refused Weight 156.429299362883 BP Diastolic BP Location Tested BP Systolic BP Type 72 113 Fetus Heart Rate Present A 145 Fetus Movement A Yes Comments Doing well. Was seen by pcp for dizzy spells. They told her she is anemic. She is having her labs drawn here today. Discussed possible causes including dehydration, low blood sugar, and poor blood return. Discussed ways to help. If no improvement she will let us know. She does think it has improved some over the last week. Flowsheet Date 03/12/2021 Diehl Score Blood Edema Fundus Height Fundus Units Glucose Ketones Leukocytes Nitrite Labor Signs Protein Cervic Dilation Cervic Effacement Cervic Station none 30 trace Type Weight in lbs Pre/Post Dialysis Refused Weight 158.205397531880 BP Diastolic BP Location Tested BP Systolic BP Type 74 111 Fetus Heart Rate Present A 136 Fetus Movement A Yes Comments Doing well. Occasional bh co ntractions. PTL precautions given. Encouraged tdap. Pt has been feeling much better. No more dizzy spells. Flowsheet Date 03/26/2021 Diehl Score Blood Edema Fundus Height Fundus Units Glucose Ketones Leukocytes Nitrite Labor Signs Protein Cervic Dilation Cervic Effacement Cervic Station 31 Type Weight in lbs Pre/Post Dialysis Refused Weight 160.035485598667 BP Diastolic BP Location Tested BP Systolic BP Type 67 R arm 107 sitting Fetus Heart Rate Present A 145 Fetus Movement Comments Flowsheet Date 04/09/2021 Diehl Score Blood Edema Fundus Height Fundus Units Glucose Ketones Leukocytes Nitrite Labor Signs Protein Cervic Dilation Cervic Effacement Cervic Station trace 35 trace Type Weight in lbs Pre/Post Dialysis Refused Weight 165.392892460570 BP Diastolic BP Location Tested BP Systolic BP Type 70 R arm 112 sitting Fetus Heart Rate Present A 146 Fetus Movement Comments neg glucose, size bigger karen es, to get ultrasound for growth Flowsheet Date 04/16/2021 Diehl Score Blood Edema Fundus Height Fundus Units Glucose Ketones Leukocytes Nitrite Labor Signs Protein Cervic Dilation Cervic Effacement Cervic Station Type Weight in lbs Pre/Post Dialysis Refused BP Diastolic BP Location Tested BP Systolic BP Type Fetus Heart Rate Present Fetus Movement Comments Flowsheet Date 04/16/2021 Diehl Score Blood Edema Fundus Height Fundus Units Glucose Ketones Leukocytes Nitrite Labor Signs Protein Cervic Dilation Cervic Effacement Cervic Station 35 Type Weight in lbs Pre/Post Dialysis Refused Weight 165.876281569690 BP Diastolic BP Location Tested BP Systolic BP Type 67 R arm 111 sitting Fetus Heart Rate Present A 145 Fetus Movement Comments Flowsheet Date 04/30/2021 Diehl Score Blood Edema Fundus Height Fundus Units Glucose Ketones Leukocytes Nitrite Labor Signs Protein Cervic Dilation Cervic Effacement Cervic Station Type Weight in lbs Pre/Post Dialysis Refused BP Diastolic BP Location Tested BP Systolic BP Type Fetus Heart Rate Present Fetus Movement Comments Flowsheet Date 04/30/2021 Diehl Score Blood Edema Fundus Height Fundus Units Glucose Ketones Leukocytes Nitrite Labor Signs Protein Cervic Dilation Cervic Effacement Cervic Station Type Weight in lbs Pre/Post Dialysis Refused BP Diastolic BP Location Tested BP Systolic BP Type Fetus Heart Rate Present Fetus Movement Comments Flowsheet Date 04/30/2021 Diehl Score Blood Edema Fundus Height Fundus Units Glucose Ketones Leukocytes Nitrite Labor Signs Protein Cervic Dilation Cervic Effacement Cervic Station 36 trace Type Weight in lbs Pre/Post Dialysis Refused Weight 171.546984592601 BP Diastolic BP Location Tested BP Systolic BP Type 72 R arm 113 sitting Fetus Heart Rate Present A 145 Fetus Movement A Yes Comments doyle breech, GBS done, disc ussed . To continue monitoring position Flowsheet Date 05/07/2021 Diehl Score Blood Edema Fundus Height Fundus Units Glucose Ketones Leukocytes Nitrite Labor Signs Protein Cervic Dilation Cervic Effacement Cervic Station none 37 trace 1cm Type Weight in lbs Pre/Post Dialysis Refused Weight 173.499763446718 BP Diastolic BP Location Tested BP Systolic BP Type 74 113 Fetus Heart Rate Present A 145 Fetus Movement A Yes Comments Unable to determine position by conner. U/S ordered. Message sent to OB staff for breast pump. Labor precautions. Flowsheet Date 05/08/2021 Diehl Score Blood Edema Fundus Height Fundus Units Glucose Ketones Leukocytes Nitrite Labor Signs Protein Cervic Dilation Cervic Effacement Cervic Station Type Weight in lbs Pre/Post Dialysis Refused BP Diastolic BP Location Tested BP Systolic BP Type Fetus Heart Rate Present Fetus Movement Comments Menstrual History Last Menstrual Date Menses Monthly On Bcp Conception Prior Menses Frequency Hcg Plus Date Menarche Onset Age Genetic Screening And Infection History Question Response Note Mental Retardation/Autism false Patient's Age Will Be 35 Years Or Older At Estim ated Date of Delivery false Thalassemia (Welsh, Azeri, Mediterranean, Or Background): MCV < 80 false Neural Tube Defect (Meningomyelocele, Spina Bifi da, Or Anencephaly) false Congenital Heart Defect false Down Syndrome false Joe-Sachs (eg, Methodist, Cajun, Malay-[place]) f alse Segundo Disease false Sickle Cell Disease Or Trait () false Hemophilia Or Other Blood Disorders false Muscular Dystrophy false Cystic Fibrosis false Atkinson's Chorea false Intellectual Disability/Autism false If Yes, Was Person Tested For Fragile X? false Other Inherited Genetic Or Chromosomal Disorder false Maternal Metabolic Disorder (eg, Type 1 Diabetes , PKU) false Patient Or Baby's Father Had A Child With Defects Not Listed Above false Recurrent Loss, Or A Stillbirth false Medications (including Suppl ements, Vitamins, Herbs, OTC Drugs), Illicit/Recreational Drugs, Alcohol false If Yes, Agent(s) And Strength/Dosage false Any Other Genetic History false Live With Someone With TB Or Exposed To TB false Patient Or Partner Has History Of Genital Herpes false Rash Or Viral Illness Since Last Menstrual Perio d false History Of STD, Gonorrhea, Chlamydia, HPV, Syphi lis false Other Infection History false History of HIV false History of Hepatitis false Prior GBS-infected child false Hemoglobinopathy Or Carrier false Other Structural Defect false Recent Travel History Outside of Country false Delivery Information Delivery Date Delivery Type Labor Anesthesia Weeks Gestation Incision Type Labor Labor Length Hrs Delivered By Post Complications Tubal Sterilization Discharge Date Comments 1 None Regional-Sp inal 37.4 Low Transvers e false Darío Alfonso MD Breech presentat ion-c/s completed early due to labor Discharge Information Feeding Method Contraceptive Method Maternal HG B and HCT Levels
[2024-11-23 17:20] VITALS: BP 102/78; PULSE 73; RESP 16; TEMP 36.6; O2SAT 100
== END 2024-11-23 17:20 | disposition home or self-care (01) ==
LOC: CHSED 15:58
PROVIDERS: Emergency Provider Emergency Medicine; PCP Family Medicine
DX: G43.909 Migraine, unspecified, not intractable, without status migrainosus (principal)
CPT/HCPCS: 96361; 96374; 96375; 99284; J1200; J1885; J2060; J2765; J7030

== ENCOUNTER 2024-12-08 16:59 | Outpatient (CLI) | payer OTHER, SELFPAY ==
--- NOTE | ~2024-12-08 | XR_ITS ---
EXAMINATION: XR abdomen obstructive series DATE: 12/08/2024 17:44 INDICATION: Abdomen pain. TECHNIQUE: Supine and upright views of the abdomen. FINDINGS: Comparison to 04/03/2023 The visualized lung parenchyma is normal.. There is a nonobstructive bowel gas pattern. Gas and stool are seen throughout the colon to the level of the rectum. There is no free air. IMPRESSION: 1. No acute abdominal abnormality. Reviewed, dictated and finalized at location A.
[2024-12-08 17:16] LABS: Add Urine Microscopic? YES; Appearance Urine Clear (Clear); Basophils Absolute Auto 0.03 K/mm3 (0.00-0.10); Basophils Percent Auto 0.3 % (0.0-1.0); Bilirubin Urine Negative (Negative); Blood Urine Negative (Negative); Color Urine Yellow (Yellow); Eosinophils Absolute Auto 0.11 K/mm3 (0.02-0.50); Eosinophils Percent Auto 1.2 % (1.0-6.0); Glucose Urine UA Negative (Negative); Hematocrit 39.4 % (35.0-49.0); Hemoglobin 12.3 g/dL (12.0-15.0); Immature Granulocyte Absolute 0.02 K/mm3 (0.00-0.00); Immature Granulocyte Percent A 0.2 % (0.0-0.0); Ketones Urine Negative (Negative); Leukocyte Esterase Ur Trace LEU/UL (Negative); Lymphocytes Absolute Auto 2.38 K/mm3 (1.10-4.50); Lymphocytes Percent Auto 26.3 % (18.0-42.0); Mean Corpuscular HGB Conc 31.2 g/dL (32-36); Mean Corpuscular Hemoglobin 28.6 pg (27.0-31.0); Mean Corpuscular Volume 91.6 fL (78.0-102.0); Mean Platelet Volume 10.5 fl (9.2-11.8); Monocytes Absolute Auto 0.71 K/mm3 (0.10-0.90); Monocytes Percent Auto 7.9 % (2.0-11.0); Neutrophils Absolute Auto 5.79 K/mm3 (1.70-7.20); Neutrophils Percent Auto 64.1 % (50.0-70.0); Nitrate Urine Negative (Negative); Platelet Count Result 280 K/mm3 (150-420); Protein Urine Negative (Negative); Red Cell Distribution Width 12.7 % (11.6-14.4); Specific Grav Ur 1.025 (1.010-1.020); Urobilinogen Urine 0.2 mg/dL (0.2-1.0)
[2024-12-08 17:23] LABS: Bacteria Urine 1+ /hpf; RBC Urine 0-2 /hpf (0-2); Squamous Epithelial Cell Urine Moderate /hpf (Few); WBC Urine 0-3 /hpf (0-3)
--- OUTSIDE RECORDS SUMMARY | 2024-12-08 17:23 | XMS_ITS | Data Portability ---
Author Organization [facility] [place] Address [address] [place] [address] Assessment No assessment recorded. Plan of Treatment Reminders Order Date Submit Date Provider Last Modified By Organization Details Last Modified Time Details Appointments None recorded. Lab None recorded. Referral None recorded. Procedures None recorded. Surgeries section (SURG) 2020 021 [facility], [address], [place], [address], 11:38:38 Imaging US, obstetric, follow-up [address], [address], [place], [address], 23:15:34 US, obstetric, limited 2020 021 [facility], [facility] [address], [place], [address], 19:51:48 Medication Orders None recorded. Patient TargetsNo [...] Resul ting Lab: [facility] [address] [facility] [address] Tel: CULTU RE ----- ----- ----- --- No Group B strep isola fabrice at 2 days (rajinder ctive broth enhan cemen t) Not Available [facility] (Lab) [address] [facility], [place], [address], 05/05/2021 17:05:14 04/16/20 21 04/16/2021 US, obste tric, follo w-up No observ ation record ed. [email or web address] [place] [address], [place], [address], 04/16/2021 17:42:32 04/16/20 21 04/16/2021 US, obste tric, follo w-up No observ ation record ed. [email or web address] [address] [facility], [place], [address], 04/17/2021 11:43:04 04/30/20 21 04/30/2021 US, garrett tric, limit ed No observ ation record ed. [email or web address] [place] [address], [place], [address], 04/30/2021 17:17:01 04/30/20 21 04/30/2021 US, obstluciana tric, limit ed No observ ation record ed. [email or web address] [address], [facility], [place], [address], 05/01/2021 15:30:31 05/08/20 21 05/08/2021 US, obste tric, follo w-up No observ ation record ed. nita [place] [address], [place], [address], 05/08/2021 17:58:32 05/08/2005/08/2021 US, obste tric, follo w-up No observ ation record ed. [email or web address] [id number] [address], [place], [address], 05/09/2021 18:03:35 05/09/20 21 05/09/2021 US, obste tric, follo w-up No observ ation record ed. [email or web address] [facility] [address], [place], [address], 05/09/2021 17:39:53 Result Notes None recorded. Problems Name Problem SNOMED Code Status Onset Date Resolution Date Notes Provider Name and Address Organization Details Recorded Time Gestatio n period, 31 weeks 09162503 Completed 201510/17/2020 31 weeks gestatio n of pregnanc y;Practi ce ID: 0001 Alejandra barbosa, [facility] 12:48:04 Complica tion of pregnanc y, childbir th and/or puerperi um 509273199 Completed 201510/17/2020 Oth diseases and conditio ns compl preg/chl dbrth;Pr actice ID: 0001 Alejandra barbosa, [facility] 12:48:34 Pregnanc y, childbir th and puerperi um finding Completed 201510/17/2020 Encntr for suprvsn of normal first preg, third trimeste r;Practi ce ID: 0001 Alejandra barbosa, [facility] 12:48:20 prematur e rupture of membrane s 730538166 Completed 201510/17/2020 Pretrm sumit ROM, unsp time betw rupt and onst labr, 3rd tri;Prac jenni ID: 0001 Alejandra [place] null, [facility] 12:48:24 False labor before 37 complete d weeks of gestatio n [id number] 817904 Completed 201510/17/2020 False labor before 37 complete d weeks of gest, third tri;Prac jenni ID: 0001 Alejandra [place] null, [facility] 12:48:00 Gestatio n period, 35 weeks 56041911 Completed 201510/17/2020 35 weeks gestatio n of pregnanc y;Practi ce ID: 0001 Alejandra barbosa, [facility] 12:48:06 Normal pregnanc y in multigra jaya [id number] 4106 Completed 201510/17/2020 Encounte r for suprvsn of normal pregnanc y, third trimeste r;Practi ce ID: 0001 Alejandra [place] null, [facility] 12:48:13 Prematur e labor 6544574 Completed 201510/17/2020 labor without delivery , third trimeste r;Practi ce ID: 0001 Alejandra [place] null, [facility] 12:48:22 Gestatio n period, 36 weeks 42053940 Completed 201510/17/2020 36 weeks gestatio n of pregnanc y;Practi ce ID: 0001 Alejandra [place] null, [facility] 12:48:[address] Concept Completed 201510/17/2020 Decrease d movement s, third trimeste r, unsp;Pra ctice ID: 0001 Alejandra barbosa, [facility] 12:48:28 Gestatio n period, 38 weeks [id number] Completed 201510/17/2020 38 weeks gestatio n of pregnanc y;Practi ce ID: 0001 Alejandra barbosa, [facility] 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 12:48:29 Clinical finding Completed 201510/17/2020 Presence of (intraut erine) contrace ptive device;R ecorded Elsewher e: No Locat ion: [facility] S ource: EHR Fruit Rancher rl: N Practi ce ID: 0001 Zack lable Time: 03:00:00 PM Alejandra barbosa, [facility] 12:47:54 Pregnanc y detectio n examinat ion Completed 201510/17/2020 Encounte r for pregnanc y test, result positive ;Recorde d Elsewher e: No Locat ion: [facility] S ource: EHR Fruit Rancher rl: N Practi ce ID: 0001 Zack lable Time: 11:00:00 AM Alejandra barbosa, [facility] 12:48:15 Pregnanc y, childbir th and puerperi um finding Completed 201510/17/2020 Encounte r for supervis ion of normal 1st pregnanc y, 2nd trimeste r;Record ed Elsewher e: No Locat ion: [facility] S ource: EHR Fruit Rancher rl: N Practi ce ID: 0001 Zack lable Time: 02:00:00 PM Alejandra barbosa, [facility] 12:48:19 Pregnanc y, childbir th and puerperi um finding Completed 201510/17/2020 Encntr for suprvsn of normal first preg, first trimeste r;Record ed Elsewher e: No Locat ion: [facility] S ource: EHR Fruit Rancher rl: N Practi ce ID: 0001 Zack lable Time: 04:00:00 PM Alejandra Hoover chelsey, [facility] 12:48:18 Pregnanc y test negative [id number] Completed 201510/17/2020 Encounte r for pregnanc y test, result negative ;Recorde d Elsewher e: No [facility] S ource: EHR Fruit Rancher rl: N Practi ce ID: 0001 Zack lable Time: 03:00:00 PM Alejandra Kiko barbosa, [facility] 12:48:16 Dizzines s and giddines s [id number] Completed 201510/17/2020 Dizzines s and giddines s;Practi ce ID: 0001 Alejandra Kiko [facility], [facility] 12:47:57 Clinical finding Completed 201510/17/2020 state, incident al;Pract ice ID: 0001 Alejandra Kikoamanda barbosa, [facility] 12:47:52 Gestatio n period, 22 weeks 37153856 Completed 201510/17/2020 22 weeks gestatio n of pregnanc y;Record ed Elsewher e: No [facility]: E[facility] Fruit Rancher rl: N Practi ce ID: 0001 Zack lable Time: 02:45:00 PM Alejandra Kiko chelsey, [facility] 12:48:03 Syphilis test finding 124074582 Completed 201510/17/2020 Encntr screen for infectio ns w sexl mode of transmis s;Record ed Elsewher e: No Locat ion: [facility] S ource: EHR Fruit Rancher rl: N Practi ce ID: 0001 Zack lable Time: 11:00:00 AM Alejandra barbosa [facility] 12:48:31 Lochia finding Completed 201510/17/2020 Encounte r for routine postpart um follow-u p;Record ed Elsewher e: No Locat ion: [facility] S ource: EHR Fruit Rancher rl: N Practi ce ID: 0001 Zack lable Time: 02:15:00 PM Alejandra barbosa, [facility] 12:48:12 Insertio n of intraute rine contrace ptive device Completed 201510/17/2020 Encounte r for insertio n of intraute rine contrace ptive device;R ecorded Elsewher e: No Locat ion: [facility] S ource: EHR Fruit Rancher rl: N Practi ce ID: 0001 Zack lable Time: 03:00:00 PM Alejandra barbosa [facility] 12:48:11 Educatio n Completed 201510/17/2020 Encounte r for other general counseli ng and advice on contrace ption;Re corded Elsewher e: No [facility] S ource: EHR Fruit Rancher rl: N Practi ce ID: 0001 Zack lable Time: 02:15:00 PM Alejandra barbosa [facility] 12:47:59 Gestatio n less than 9 weeks [id number] Completed 201510/17/2020 Less than 8 weeks gestatio n of pregnanc y;Record ed Elsewher e: No Locat ion: [facility] S ource: EHR Fruit Rancher rl: N Practi ce ID: 0001 Zack lable Time: 11:00:00 AM Alejandra barbosa [facility] 12:48:01 Contrace ptive sheath status 101077097 Completed 201610/17/2020 IUD follow up;Recor ded Elsewher e: No Locat ion: [facility] S ource: EHR Fruit Rancher rl: N Practi ce ID: 0001 Zack lable Time: 06:30:00 PM Alejandra barbosa, [facility] 12:47:56 Infectio n screenin g Completed 201510/17/2020 Encounte r for screenin g for oth infec/pa rastc diseases ;Recorde d Elsewher e: No Locat ion: [facility] S ource: EHR Fruit Rancher rl: N Kiketi ce ID: 0001 Zack lable Time: 11:00:00 AM Alejandra barbosa, [facility] 12:48:09 Secondar y amenorrh ea 956546777 Completed 201510/17/2020 Secondar y amenorrh ea;Recor ded Elsewher e: No Locat ion: [facility] S ource: EHR Fruit Rancher rl: N Kiketi ce ID: 0001 Zack lable Time: 11:00:00 AM Alejandra barbosa [facility] 12:48:25 Term pregnanc y delivere d [id number] Completed 201510/17/2020 Encounte r for full-ter m uncompli cated delivery ;Practic e ID: 0001 Alejandra barbosa, [facility] 12:48:32 Single live 242830980 Completed 201510/17/2020 Single live ;Pr actice ID: 0001 Alejandra barbosa, [facility] 12:48:26 Pregnanc y 25750526 Completed 202005/15/2021 Mary Bernaltie hl null, [facility] 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 16:35:40 Complete breech presenta tion [id number] Completed 04/30 u/s for presenta tion Mary Bernaltie hl null, [facility] 16:35:40 Problem Notes None recorded. Procedures Surgical History Date Name Laterality Status Provider Name and Address Organization Details Recorded Time SECTION (SURG) completed Kenyetta Wray [facility] 05/10/2021 11:38:39 Date of Last Pap Smear completed Alejandra Hoover [facility] 10/17/2020 16:26:29 Imaging Results Imaging Date Name Status LastModified by Organiz ation Details LastModified Time 04/16/2021 US, obstetric, follow-up completed [email or web address] [place] [address], [place], [address], 04/16/2021 17:42:32 04/16/2021 US, obstetric, follow-up completed [email or web address] [address], [place], [address], 04/17/2021 11:43:04 04/30/2021 US, obstetric, limited completed [email or web address] [place] [address], [place], [address], 04/30/2021 17:17:01 04/30/2021 US, obstetric, limited completed [email or web address] [address], [place], [address], 05/01/2021 15:30:31 05/08/2021 US, obstetric, follow-up completed nita [place] [address], [place], [address], 05/08/2021 17:58:32 05/08/2021 US, obstetric, follow-up completed [address] [facility], [place], [address], 05/09/2021 18:03:35 05/09/2021 US, obstetric, follow-up completed [address] [facility] [address], [place], [address], 05/09/2021 17:39:53 Procedure Notes None recorded. Medical Equipment None Reported. Allergies Allergen ID Allergen Name Allergen Category Reaction Reaction Severity Criticality Documentation Date Start Date Code Code System Note Provider Name and Address Organization Details Recorded Time 87940 amoxicill in medicatio n Not available Not available Not available 10/19/2020 723 RxNorm Alejandra [facility], [facility] 15:51:00 82995 Product containin g penicilli n (product) medicatio n Not available Not available Not available 10/19/2020 21021 8001 SNOMED Alejandra Hoover [facility] 15:51:11 95736 Macrobid medicatio n Not available Not available Not available 10/19/2020 04532 1 RxNorm Alejandra [facility], [facility] 15:51:17 9944 azithromy stella medicatio n Not available Not available Not available 09/01/2020 94460 RxNorm Alejandra Hoover chelsey, [facility] 16:26:03 Medications Name Sig Start Date [...] Prescrib ed Elsewher e: Yes Loca tion: [facility] odify By: modesto marionuntnayana DateTime : 10/17/19 17 06:30:00 PM Not Available Not Available Not Available fluconazo le 150 mg tablet 06/04 completed Not Available Not Available Not Available Vitamin D2 1,250 mcg (50,000 unit) capsule take 1 capsule by oral route every week 10/17 completed Prescrib ed Elsewher e: No Locat ion: [facility] odify By: modesto mitcheller DateTime : 12/27/19 16 03:31:18 PM Not Available Not Available Not Available ketoconaz ole 2 % topical cream 06/04 completed Not Available Not Available Not Available Stool Softener 50 mg capsule take 1 capsule by oral route every day at bedtime as needed 10/17 completed Prescrib ed Elsewher e: Yes Loca tion: [facility] odify By: modesto rosario DateTime : 10/17/19 17 06:30:00 PM Not Available Not Available Not Available Stool Softener active Not Available Not Available Not Available active Not Available Not Avai lable Not Available Triveen-D uo DHA 29 mg-1 mg-400 mg oral pack take 2 by Oral route once for 30 days 12/12 completed Prescrib ed Elsewher e: No Locat ion: [facility] odify By: franco rosario DateTime : 11/14/19 16 11:00:00 AM Not Available Not Available Not Available Vitals Date Recorded Body height Body mass index (BMI) Body weight Systolic blood pressure Diastolic blood pressure Provider Name and Address Organization Details Last Updated DateTime 04/30/2021 170.18 cm 26.8 kg/m2 51228.29 527 g 113 mm[Hg] 72 mm[Hg] Leena Padgett [facility] 17:47:55 Date Recorded Body height Body mass index (BMI) Body weight Systolic blood pressure Diastolic blood pressure Provider Name and Address Organization Details Last Updated DateTime 05/07/2021 170.18 cm 27.1 kg/m2 69989.48 001 g 113 mm[Hg] 74 mm[Hg] Alejandra Hoover [facility] 17:48:22 Date Recorded Body height Body mass index (BMI) Body weight Systolic blood pressure Diastolic blood pressure Provider Name and Address Organization Details Last Updated DateTime 05/17/2021 170.18 cm 24 kg/m2 81593.63 g 114 mm[Hg] 65 mm[Hg] Leena [facility] 16:48:24 Date Recorded Body height Body mass index (BMI) Body weight Systolic blood pressure Diastolic blood pressure Provider Name and Address Organization Details Last Updated DateTime 06/04/2021 170.18 cm 23.5 kg/m2 15523.86 g 126 mm[Hg] 75 mm[Hg] Leena [facility] 17:28:30 Social History Question Answer Notes LastModified by Organizat ion Details LastModified Time Tobacco Smoking Status Never Smoker Alejandra Hoover [facility] 10/17/2020 16:28:00 What Is Your Level Of Alcohol Consumption? None Information not available 10/17/2020 If You Are , What Was Your Level Of Alcohol Consumption Prior To ? None [email or web address] Information not available 10/17/2020 What Is Your Level Of Caffeine Consumption? None [email or web address] Information not available 10/17/2020 Do You Use Any Illicit Or Recreational Drugs? No [email or web address] Information not available 10/17/2020 Has Tobacco Cessation Counseling Been Provided? No [email or web address] Information not available 10/17/2020 Do You Or Have You Ever Used Any Other Forms Of Tobacco Or Nicotine? No Information not available 10/17/2020 Sex: Unknown Functional Status Question Answer Note LastModified by Organization D etails LastModified Time What is your exercise level? None [email or web address] Information not available 10/17/2020 Mental Status None recorded. Family History Relationship Description Onset Age of this Age Resolved Age Notes LastModified by Organization Details LastModified Time Father Seizure disorder [email or web address] Not available 2020 16:27:44 Medical History Condition Response Allergies (Food, seasonal, environmental ) N Other N Blood Transfusion N Drug/Latex Allergies/Reactions N Breast Cancer N Dermatologic Disorders N Lung Disease N Defects or Inherited Disease N Breast Problem N Gestational Diabetes N Hematologic disorders N Anesthesia Complications N History of STI N Deep Vein Thrombosis N Polycystic ovary syndrome N Anxiety Disorder N Autoimmune disease N Arthritis N Infertility N Polyps N Acid Reflux (GERD) N History of abnormal pap N Cancer N Stroke N Varicosities N Neurologic/Epilepsy N Endometriosis N High Cholesterol N Headaches N Fibromyalgia N Kidney Disease N Heart Problems N Kidney or Bladder Problems N Thyroid Problems N GI Problems N Eating Disorder [...] SNOMED-CT Code Diagnosis ICD10 Code Diagnosis Note [id number] Parul Chavez [place] [address] [address] 10/19/2020 15:34:19 10/19/2020 17:42:55 Gynecologic examination 22233995 Z01.419 test positive 919101097 Z32.01 Risk factors addressed: Tobacco Cessation, Safe [...] annual well woman examinatio n and address [facility] [place] . Additional precaution bc measures were taken to minimize potential exposure to the Covid-19 virus during this patient s visit, including available hand bindery cutter operator upon arrive, temperatur e check and being asked a series of screening questions. All staff wore face coverings during this encounter, as well as provided additional cleaning and sanitizing of all surfaces, including countertop s, pens, chairs, door handles, light switches, etc, prior to and following the patient s visit. [id number] Jaylin Martinez [place] [address],[place] [address] 10/19/2020 15:38:04 10/20/2020 08:16:34 test positive 786203121 Z32.01 [id number] [facility] [address],[place] [address] 11/16/2020 16:36:08 11/16/2020 17:19:10 screening 198654375 Z36.82 [id number] Darío Alfonso MD [place] [address] [address] 11/16/2020 16:39:07 11/17/2020 19:06:39 Routine care 389949020 Z34.91 [id number] Parul Chavez [place] [address],[place] [address] 12/14/2020 16:31:01 12/14/2020 17:27:12 Routine care 532819131 Z34.92 [id number] Almaz Prince [place] [address],[place] [address] 01/04/2021 15:16:00 01/04/2021 16:35:44 screening for malformation 724168988 Z36.3 [id number] Darío Alfonso MD [place] [address],[place] [address] 01/04/2021 15:17:53 01/04/2021 17:06:54 Routine care 892517506 Z34.91 screening 2437 02844 Z36.89 [id number] Darío Alfonso MD [place] [address],[place] [address] 01/18/2021 17:00:27 01/19/2021 15:11:44 Vaginal discharge 045065863 N89.8 [id number] [facility] [address],[place] [address] 01/29/2021 17:45:53 01/29/2021 18:06:13 [id number] [facility] [address],[place] [address] 02/26/2021 10:57:19 02/26/2021 11:36:58 Routine care 743632129 Z34.92 [id number] [facility] [address],[place] [address] 03/12/2021 14:10:38 03/12/2021 14:50:43 Routine care 304145750 Z34.92 [id number] Darío Alfonso MD [place] [address],[place] [address] 03/26/2021 14:21:54 03/26/2021 15:10:34 Routine care 187560845 Z34.91 [id number] Darío Alfonso MD [place] [address],[place] [address] 04/09/2021 15:14:24 04/09/2021 15:55:17 Routine care 826678903 Z34.91 [id number] Almaz Prince [place] [address],[place] [address] 04/16/2021 16:31:54 04/17/2021 15:09:17 Uterine size for dates discrepancy 156350142 O26.843 Z3A.34 [id number] Darío Alfonso MD [place] [address],[place] [address] 04/16/2021 16:34:09 04/17/2021 15:09:33 Routine care 532470269 Z34.91 [id number] [facility] [address],[place] [address] 04/30/2021 16:52:00 04/30/2021 17:16:22 Doyle breech presentation 61428076 O32.1XX9 Z3A.36 [id number] Darío Alfonso MD [place] [address],[place] [address] 04/30/2021 16:52:00 04/30/2021 17:16:22 [id number] Darío Alfonso MD [facility] [address],[place] [address] 04/30/2021 17:35:16 05/01/2021 09:48:47 Routine care 725818282 Z34.91 [id number] Parul Applejessica [place] [address],[place] [address] 05/07/2021 17:41:23 05/09/2021 15:37:09 Routine care 501093111 Z34.92 Breech presentation 6096 002 O32.1XX9 [id number] [facility] [address],[place] [address] 05/08/2021 16:56:49 05/08/2021 23:15:34 Uterine size for dates discrepancy 405847549 O26.843 O32.1XX9 Z3A.37 [id number] Darío Alfonso MD [facility] [address],[place] [address] 05/17/2021 16:31:03 05/17/2021 17:08:37 Postoperative care 742798892 Z48.89 This patient is a 20-year-ol d female presents for postop follow-up. She is 1 week postop from a delivery. She has no complaints . Her incisions are clean dry and intact. She will follow-up in 3 weeks. Her mood is good. Her baby is doing well. [id number] Darío Alfonso MD [place] [address] [address] 06/04/2021 17:07:55 06/04/2021 18:16:20 care 253016285 Z39.2 This patient is a 20-year-ol d [...] Guerrero Member ID Guarantor Name 04/30/2021 1 [facility] ON OR AFTER 03/15/21 (MEDICAID REPLACEMENT - HMO) Val Rodriguez [id number] Val Rodriguez 05/07/2021 1 [facility] ON OR AFTER 03/15/21 (MEDICAID REPLACEMENT - HMO) Val Rodriguez [id number] Val Rodriguez 05/08/2021 1 [facility] ON OR AFTER 03/15/21 (MEDICAID REPLACEMENT - HMO) Val Rodriguez [id number] Val Rodriguez 05/17/2021 1 [facility] ON OR AFTER 03/15/21 (MEDICAID REPLACEMENT - HMO) Val Rodriguez [id number] Val Rodriguez 06/04/2021 1 [facility] ON OR AFTER 03/15/21 (MEDICAID REPLACEMENT - HMO) Val Rodriguez [id number] Val Rodriguez Notes Date Note Type Note [...] well. Darío Alfonso MD [address], [place], [address], [facility] 05/17/2021 16:58:03 06/04/2021 text/html This [...] sex. Darío Alfonso MD [address], [place], [address], [facility] 06/04/2021 17:51:41 OBGyn Episode Ob Episode Information Episode Created Date Number of Fetuses Patient Bloodtype Patient rh Status Prepregnancy Weight lbs Domestic Partner Domestic Partner Phone Father Name Field Support Technician Status 10/17/19 21 1 CLOSED Fetus Data [...] Date Comments 6 38.2 nucal cord x1 Erece Discharge Information Feeding Method Contraceptive Method Maternal HG B and HCT Levels Ob Episode Information Episode Created Date Number of Fetuses Patient Bloodtype Patient rh Status Prepregnancy Weight lbs Domestic Partner Domestic Partner Phone Father Name Field Support Technician Status 11/17/19 21 1 A Positive 146 [...] e Paratubal cyst arising in mesonephric duct [id number] Complete breech presentation [id number] 04/30 u/s for presentation Double artery [id number] double renal artery Ward Calculation Initial Ward [...] Weight in lbs Pre/Post Dialysis Refused Weight 143.859381349063 BP Diastolic BP Location Tested BP Systolic [...] Weight in lbs Pre/Post Dialysis Refused Weight 144.436260250889 BP Diastolic BP Location Tested BP Systolic [...] Weight in lbs Pre/Post Dialysis Refused Weight 147.113654648046 BP Diastolic BP Location Tested BP Systolic [...] Weight in lbs Pre/Post Dialysis Refused Weight 151.000224531336 BP Diastolic BP Location Tested BP Systolic [...] Weight in lbs Pre/Post Dialysis Refused Weight 151.370858761155 BP Diastolic BP Location Tested BP Systolic [...] Weight in lbs Pre/Post Dialysis Refused Weight 156.478615069815 BP Diastolic BP Location Tested BP Systolic [...] Weight in lbs Pre/Post Dialysis Refused Weight 158.600765069114 BP Diastolic BP Location Tested BP Systolic [...] Weight in lbs Pre/Post Dialysis Refused Weight 160.663774656081 BP Diastolic BP Location Tested BP Systolic BP Type 67 R arm 107 sitting Fetus Heart Rate Present A 145 Fetus Movement Comments Flowsheet Date 04/09/2021 Diehl Score Blood Edema Fundus Height Fundus Units Glucose Ketones Leukocytes Nitrite Labor Signs Protein Cervic Dilation Cervic Effacement Cervic Station trace 35 trace Type Weight in lbs Pre/Post Dialysis Refused Weight 165.951291033005 BP Diastolic BP Location Tested BP Systolic [...] Weight in lbs Pre/Post Dialysis Refused Weight 165.854167955604 BP Diastolic BP Location Tested BP Systolic [...] Weight in lbs Pre/Post Dialysis Refused Weight 171.596791915518 BP Diastolic BP Location Tested BP Systolic [...] Weight in lbs Pre/Post Dialysis Refused Weight 173.659572739825 BP Diastolic BP Location Tested BP Systolic [...] Estim ated Date of Delivery false Thalassemia (Niuean, Kinyarwanda, Mediterranean, Or Background): MCV < 80 false Neural Tube Defect (Meningomyelocele, Spina Bifi da, Or Anencephaly) false Congenital Heart Defect false Down Syndrome false Joe-Sachs (eg, Pentecostalism, Cajun, Ma[place]) f alse Segundo Disease false Sickle Cell Disease Or Trait () false Hemophilia Or Other Blood Disorders false Muscular Dystrophy false Cystic Fibrosis false [place]'s Chorea false Intellectual Disability/Autism false If Yes, [...]
[2024-12-08 17:59] LABS: Alanine Aminotransferase 41 U/L (14-59); Albumin Level 3.7 g/dL (3.4-5.0); Alkaline Phosphatase 130 U/L (46-116); Amylase 54 U/L (25-115); Anion Gap 8 mmol/L (4-12); Aspartate Amino Transferase 20 U/L (15-37); Bilirubin,Total 0.5 mg/dL (0.00-1.00); Blood Urea Nitrogen 11 mg/dL (7-18); Calcium 8.8 mg/dL (8.5-10.1); Carbon Dioxide 27 mmol/L (21-32); Chloride 105 mmol/L (98-108); Estimated Glomerular Filt Rate > 60; Glucose 85 mg/dL (70-99); Lipase 25 U/L (16-77); Osmolality Calculated 288 mOsm/kg (285-295); Potassium 3.9 mmol/L (3.5-5.1); Sodium 140 mmol/L (136-145); Thyroid Stimulating Hormone 1.36 uIU/mL (0.36-3.74); Total Protein 7.6 g/dL (6.4-8.2)
[2024-12-08 18:10] LABS: Beta HCG Quantitative < 1.00 mIU/mL (0-6)
== END 2024-12-08 17:00 | disposition home or self-care (01) ==
LOC: CHSLAB 17:02
PROVIDERS: PCP Family Medicine; Visit Provider Family Medicine
DX: R10.9 Unspecified abdominal pain (principal)
CPT/HCPCS: 36415; 74019; 80053; 81001; 82150; 83690; 84443; 84702; 85025

== ENCOUNTER 2024-12-10 13:04 | Outpatient (CLI) | payer OTHER, SELFPAY ==
--- NOTE | ~2024-12-10 | US_ITS ---
EXAMINATION: US pelvic complete w TV INDICATION: Pelvic pain with urinating. 4 months. Comparison:CT dated 09/23/2023 TECHNIQUE: Multiple transabdominal and endovaginal sonographic images of the pelvis performed. FINDINGS: The uterus measures 9.2 x 6.1 x 5 cm. The endometrial complex measures 10 mm. The right ovary measures 2.4 x 2.4 x 1.5 cm and the left ovary measures . There are small follicles in each ovary. Normal doppler signal in both ovaries. There is no free fluid in the pelvis. There are no abnormal masses seen on either side. IMPRESSION: 1. Unremarkable pelvic ultrasound. Reviewed, dictated and finalized at location A.
--- OUTSIDE RECORDS SUMMARY | 2024-12-10 13:13 | XMS_ITS | Data Portability ---
Author Organization [facility] [place] Address [address] [place] [address] Assessment No assessment recorded. Plan of Treatment Reminders Order Date Submit Date Provider Last Modified By Organization Details Last Modified Time Details Appointments None recorded. Lab None recorded. Referral None recorded. Procedures None recorded. Surgeries section (SURG) 2020 021 [facility], [address], [place], [address], 11:38:38 Imaging US, obstetric, follow-up [address], [facility] [address], [address], [place], [address], 23:15:34 US, obstetric, limited 2020 021 [facility], [facility] [address], [address], [place], [address], 19:51:48 Medication Orders None recorded. Patient TargetsNo [...] Resul ting Lab: [facility] [address] [facility] [address] Tel: CULTU RE ----- ----- ----- --- No Group B strep isola fabrice at 2 days (rajinder ctive broth enhan cemen t) Not Available [facility] (Lab) [address] [facility], [place], [address], 05/05/2021 17:05:14 04/16/20 21 04/16/2021 US, obste tric, follo w-up No observ ation record ed. [email or web address] [place] [address], [place], [address], 04/16/2021 17:42:32 04/16/20 21 04/16/2021 US, obste tric, follo w-up No observ ation record ed. [address], [facility], [place], [address], 04/17/2021 11:43:04 04/30/20 21 04/30/2021 US, garrett tric, limit ed No observ ation record ed. [email or web address] [place] [address], [place], [address], 04/30/2021 17:17:01 04/30/20 21 04/30/2021 US, obstluciana tric, limit ed No observ ation record ed. [email or web address] [address], [facility], [place], [address], 05/01/2021 15:30:31 05/08/20 21 05/08/2021 US, obste tric, follo w-up No observ ation record ed. nita [place] [address], [place], [address], 05/08/2021 17:58:32 05/08/2005/08/2021 US, obste tric, follo w-up No observ ation record ed. [email or web address] [id number] [address], [place], [address], 05/09/2021 18:03:35 05/09/20 21 05/09/2021 US, obste tric, follo w-up No observ ation record ed. [email or web address] [facility] [address], [place], [address], 05/09/2021 17:39:53 Result Notes None recorded. Problems Name Problem SNOMED Code Status Onset Date Resolution Date Notes Provider Name and Address Organization Details Recorded Time Gestatio n period, 31 weeks 60759929 Completed 201510/17/2020 31 weeks gestatio n of pregnanc y;Practi ce ID: 0001 Alejandra barbosa, [facility] 12:48:04 Complica tion of pregnanc y, childbir th and/or puerperi um 974476942 Completed 201510/17/2020 Oth diseases and conditio ns compl preg/chl dbrth;Pr actice ID: 0001 Alejandra barbosa, [facility] 12:48:34 Pregnanc y, childbir th and puerperi um finding Completed 201510/17/2020 Encntr for suprvsn of normal first preg, third trimeste r;Practi ce ID: 0001 Alejandra barbosa, [facility] 12:48:20 prematur e rupture of membrane s 964421072 Completed 201510/17/2020 Pretrm sumit ROM, unsp time betw rupt and onst labr, 3rd tri;Prac jenni ID: 0001 Alejandra Hoover null, [facility] 12:48:24 False labor before 37 complete d weeks of gestatio n [id number] 107494 Completed 201510/17/2020 False labor before 37 complete d weeks of gest, third tri;Prac jenni ID: 0001 Alejandra Hoover null, [facility] 12:48:00 Gestatio n period, 35 weeks 57839754 Completed 201510/17/2020 35 weeks gestatio n of pregnanc y;Practi ce ID: 0001 Alejandra barbosa, [facility] 12:48:06 Normal pregnanc y in multigra jaya [id number] 4106 Completed 201510/17/2020 Encounte r for suprvsn of normal pregnanc y, third trimeste r;Practi ce ID: 0001 Alejandra Hoover null, [facility] 12:48:13 Prematur e labor 1072087 Completed 201510/17/2020 labor without delivery , third trimeste r;Practi ce ID: 0001 Alejandra Hoover null, [facility] 12:48:22 Gestatio n period, 36 weeks 97713779 Completed 201510/17/2020 36 weeks gestatio n of pregnanc y;Practi ce ID: 0001 Alejandra Hoover null, [facility] 12:48:[address] Concept Completed 201510/17/2020 Decrease d movement s, third trimeste r, unsp;Pra ctice ID: 0001 Alejandra barbosa, [facility] 12:48:28 Gestatio n period, 38 weeks 70649969 Completed 201510/17/2020 38 weeks gestatio n of pregnanc y;Practi ce ID: 0001 Alejandra barbosa, [facility] 12:48:[address] Concept Completed 201510/17/2020 Encntr for quality assurance calibrator exam (general ) (routine ) w/o abn findings ;Recorde d Elsewher e: No Locat ion: [facility] S ource: EHR Nuclear Equipment Design Engineer rl: N Practi ce ID: 0001 Zack lable Time: 11:00:00 AM Alejandra barbosa, [facility] 12:48:29 Clinical finding Completed 201510/17/2020 Presence of (intraut erine) contrace ptive device;R ecorded Elsewher e: No Locat ion: [facility] S ource: EHR Nuclear Equipment Design Engineer rl: N Practi ce ID: 0001 Zack lable Time: 03:00:00 PM Alejandra barbosa, [facility] 12:47:54 Pregnanc y detectio n examinat ion Completed 201510/17/2020 Encounte r for pregnanc y test, result positive ;Recorde d Elsewher e: No Locat ion: [facility] S ource: EHR Nuclear Equipment Design Engineer rl: N Practi ce ID: 0001 Zack lable Time: 11:00:00 AM Alejandra barbosa, [facility] 12:48:15 Pregnanc y, childbir th and puerperi um finding Completed 201510/17/2020 Encounte r for supervis ion of normal 1st pregnanc y, 2nd trimeste r;Record ed Elsewher e: No Locat ion: [facility] S ource: EHR Nuclear Equipment Design Engineer rl: N Practi ce ID: 0001 Zack lable Time: 02:00:00 PM Alejandra barbosa, [facility] 12:48:19 Pregnanc y, childbir th and puerperi um finding Completed 201510/17/2020 Encntr for suprvsn of normal first preg, first trimeste r;Record ed Elsewher e: No Locat ion: [facility] S ource: EHR Nuclear Equipment Design Engineer rl: N Practi ce ID: 0001 Zack lable Time: 04:00:00 PM Alejandra Hoover chelsey, [facility] 12:48:18 Pregnanc y test negative [id number] Completed 201510/17/2020 Encounte r for pregnanc y test, result negative ;Recorde d Elsewher e: No [facility] S ource: EHR Nuclear Equipment Design Engineer rl: N Practi ce ID: 0001 Zack lable Time: 03:00:00 PM Alejandra Kiko barbosa, [facility] 12:48:16 Dizzines s and giddines s [id number] Completed 201510/17/2020 Dizzines s and giddines s;Practi ce ID: 0001 Alejandra Kiko [facility], [facility] 12:47:57 Clinical finding Completed 201510/17/2020 state, incident al;Pract ice ID: 0001 Alejandra Kikoamanda barbosa, [facility] 12:47:52 Gestatio n period, 22 weeks [id number] Completed 201510/17/2020 22 weeks gestatio n of pregnanc y;Record ed Elsewher e: No [facility]: EHR Nuclear Equipment Design Engineer rl: N Practi ce ID: 0001 Zack lable Time: 02:45:00 PM Alejandra Kiko chelsey, [facility] 12:48:03 Syphilis test finding [id number] Completed 201510/17/2020 Encntr screen for infectio ns w sexl mode of transmis s;Record ed Elsewher e: No Locat ion: [facility] S ource: EHR Nuclear Equipment Design Engineer rl: N Practi ce ID: 0001 Zack lable Time: 11:00:00 AM Alejandra barbosa [facility] 12:48:31 Lochia finding Completed 201510/17/2020 Encounte r for routine postpart um follow-u p;Record ed Elsewher e: No Locat ion: [facility] S ource: EHR Nuclear Equipment Design Engineer rl: N Practi ce ID: 0001 Zack lable Time: 02:15:00 PM Alejandra barbosa, [facility] 12:48:12 Insertio n of intraute rine contrace ptive device Completed 201510/17/2020 Encounte r for insertio n of intraute rine contrace ptive device;R ecorded Elsewher e: No Locat ion: [facility] S ource: EHR Nuclear Equipment Design Engineer rl: N Practi ce ID: 0001 Zack lable Time: 03:00:00 PM Alejandra barbosa [facility] 12:48:11 Educatio n Completed 201510/17/2020 Encounte r for other general counseli ng and advice on contrace ption;Re corded Elsewher e: No [facility] ource: EHR Nuclear Equipment Design Engineer rl: N Practi ce ID: 0001 Zakc lable Time: 02:15:00 PM Alejandra barbosa [facility] 12:47:59 Gestatio n less than 9 weeks 890216547 Completed 201510/17/2020 Less than 8 weeks gestatio n of pregnanc y;Record ed Elsewher e: No Locat ion: [facility] S ource: EHR Nuclear Equipment Design Engineer rl: N Practi ce ID: 0001 Zack lable Time: 11:00:00 AM Alejandra barbosa [facility] 12:48:01 Contrace ptive sheath status 803774738 Completed 201610/17/2020 IUD follow up;Recor ded Elsewher e: No Locat ion: [facility] S ource: EHR Nuclear Equipment Design Engineer rl: N Practi ce ID: 0001 Zack lable Time: 06:30:00 PM Alejandra barbosa, [facility] 12:47:56 Infectio n screenin g Completed 201510/17/2020 Encounte r for screenin g for oth infec/pa rastc diseases ;Recorde d Elsewher e: No Locat ion: [facility] S ource: EHR Nuclear Equipment Design Engineer rl: N Kiketi ce ID: 0001 Zack lable Time: 11:00:00 AM Alejandra barbosa, [facility] 12:48:09 Secondar y amenorrh ea 619725462 Completed 201510/17/2020 Secondar y amenorrh ea;Recor ded Elsewher e: No Locat ion: [facility] S ource: EHR Nuclear Equipment Design Engineer rl: N Kiketi ce ID: 0001 Zack lable Time: 11:00:00 AM Alejandra barbosa [facility] 12:48:25 Term pregnanc y delivere d 79737261 Completed 201510/17/2020 Encounte r for full-ter m uncompli cated delivery ;Practic e ID: 0001 Alejandra barbosa, [facility] 12:48:32 Single live 876093320 Completed 201510/17/2020 Single live ;Pr actice ID: 0001 Alejandra barbosa, [facility] 12:48:26 Pregnanc y 71323448 Completed 202005/15/2021 Mary Bernaltie hl null, [facility] 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 16:35:40 Complete breech presenta tion 50676497 Completed 04/30 u/s for presenta tion Mary Bernaltie hl null, [facility] 16:35:40 Problem Notes None recorded. Procedures Surgical History Date Name Laterality Status Provider Name and Address Organization Details Recorded Time SECTION (SURG) completed Kenyetta Wray [facility] 05/10/2021 11:38:39 Date of Last Pap Smear completed Alejandra Hoover [facility] 10/17/2020 16:26:29 Imaging Results Imaging Date Name Status LastModified by Organiz ation Details LastModified Time 04/16/2021 US, obstetric, follow-up completed [email or web address] [place] [address], [place], [address], 04/16/2021 17:42:32 04/16/2021 US, obstetric, follow-up completed [email or web address] [address], [place], [address], 04/17/2021 11:43:04 04/30/2021 US, obstetric, limited completed [email or web address] [place] [address], [place], [address], 04/30/2021 17:17:01 04/30/2021 US, obstetric, limited completed [email or web address] [address], [place], [address], 05/01/2021 15:30:31 05/08/2021 US, obstetric, follow-up completed nita [place] [address], [place], [address], 05/08/2021 17:58:32 05/08/2021 US, obstetric, follow-up completed [address], [facility], [place], [address], 05/09/2021 18:03:35 05/09/2021 US, obstetric, follow-up completed [address] [facility] [address], [place], [address], 05/09/2021 17:39:53 Procedure Notes None recorded. Medical Equipment None Reported. Allergies Allergen ID Allergen Name Allergen Category Reaction Reaction Severity Criticality Documentation Date Start Date Code Code System Note Provider Name and Address Organization Details Recorded Time 97250 amoxicill in medicatio n Not available Not available Not available 10/19/2020 723 RxNorm Alejandra Hoover [facility], [facility] 15:51:00 72141 Product containin g penicilli n (product) medicatio n Not available Not available Not available 10/19/2020 95322 8001 SNOMED Alejandra Hoover [facility] 15:51:11 95410 Macrobid medicatio n Not available Not available Not available 10/19/2020 16102 1 RxNorm Alejandra Hoover [facility], [facility] 15:51:17 9944 azithromy stella medicatio n Not available Not available Not available 09/01/2020 16442 RxNorm Alejandra Hoover chelsey, [facility] 16:26:03 Medications Name Sig Start Date [...] Prescrib ed Elsewher e: Yes Loca tion: [facility] odify By: modesto marionuntnayana DateTime : 10/17/19 17 06:30:00 PM Not Available Not Available Not Available fluconazo le 150 mg tablet 06/04 completed Not Available Not Available Not Available Vitamin D2 1,250 mcg (50,000 unit) capsule take 1 capsule by oral route every week 10/17 completed Prescrib ed Elsewher e: No Locat ion: [facility] odify By: modesto mitcheller DateTime : 12/27/19 16 03:31:18 PM Not Available Not Available Not Available ketoconaz ole 2 % topical cream 06/04 completed Not Available Not Available Not Available Stool Softener 50 mg capsule take 1 capsule by oral route every day at bedtime as needed 10/17 completed Prescrib ed Elsewher e: Yes Loca tion: [facility] odify By: modesto rosario DateTime : 10/17/19 17 06:30:00 PM Not Available Not Available Not Available Stool Softener active Not Available Not Available Not Available active Not Available Not Avai lable Not Available Triveen-D uo DHA 29 mg-1 mg-400 mg oral pack take 2 by Oral route once for 30 days 12/12 completed Prescrib ed Elsewher e: No Locat ion: [facility] odify By: franco rosario DateTime : 11/14/19 16 11:00:00 AM Not Available Not Available Not Available Vitals Date Recorded Body height Body mass index (BMI) Body weight Systolic blood pressure Diastolic blood pressure Provider Name and Address Organization Details Last Updated DateTime 04/30/2021 170.18 cm 26.8 kg/m2 88303.29 527 g 113 mm[Hg] 72 mm[Hg] Leena Padgett [facility] 17:47:55 Date Recorded Body height Body mass index (BMI) Body weight Systolic blood pressure Diastolic blood pressure Provider Name and Address Organization Details Last Updated DateTime 05/07/2021 170.18 cm 27.1 kg/m2 19201.48 001 g 113 mm[Hg] 74 mm[Hg] Alejandra Hoover [facility] 17:48:22 Date Recorded Body height Body mass index (BMI) Body weight Systolic blood pressure Diastolic blood pressure Provider Name and Address Organization Details Last Updated DateTime 05/17/2021 170.18 cm 24 kg/m2 58549.63 g 114 mm[Hg] 65 mm[Hg] Leena [facility] 16:48:24 Date Recorded Body height Body mass index (BMI) Body weight Systolic blood pressure Diastolic blood pressure Provider Name and Address Organization Details Last Updated DateTime 06/04/2021 170.18 cm 23.5 kg/m2 56711.86 g 126 mm[Hg] 75 mm[Hg] Leena [facility] 17:28:30 Social History Question Answer Notes LastModified by Organizat ion Details LastModified Time Tobacco Smoking Status Never Smoker Alejandra Hoover [facility] 10/17/2020 16:28:00 What Is Your Level Of Alcohol Consumption? None [email or web address] Information not available 10/17/2020 If You Are , What Was Your Level Of Alcohol Consumption Prior To ? None [email or web address] Information not available 10/17/2020 What Is Your Level Of Caffeine Consumption? None Information not available 10/17/2020 Do You Use Any Illicit Or Recreational Drugs? No [email or web address] Information not available 10/17/2020 Has Tobacco Cessation Counseling Been Provided? No [email or web address] Information not available 10/17/2020 Do You Or Have You Ever Used Any Other Forms Of Tobacco Or Nicotine? No Information not available 10/17/2020 Sex: Unknown Functional Status Question Answer Note LastModified by Organization D etails LastModified Time What is your exercise level? None [email or web address] Information not available 10/17/2020 Mental Status None recorded. Family History Relationship Description Onset Age of this Age Resolved Age Notes LastModified by Organization Details LastModified Time Father Seizure disorder [email or web address] Not available 2020 16:27:44 Medical History Condition [...] SNOMED-CT Code Diagnosis ICD10 Code Diagnosis Note [id number] Parul Chavez [place] [address] [address] 10/19/2020 15:34:19 10/19/2020 17:42:55 Gynecologic examination 79378948 Z01.419 test positive 715150793 Z32.01 Risk factors addressed: Tobacco Cessation, Safe [...] annual well woman examinatio n and address [facility] . Additional precaution bc measures were taken to minimize potential exposure to the Covid-19 virus during this patient s visit, including available hand demolition engineer upon arrive, temperatur e check and being asked a series of screening questions. All staff wore face coverings during this encounter, as well as provided additional cleaning and sanitizing of all surfaces, including countertop s, pens, chairs, door handles, light switches, etc, prior to and following the patient s visit. [id number] Jaylin Martinez [place] [address],[place] [address] 10/19/2020 15:38:04 10/20/2020 08:16:34 test positive 890021437 Z32.01 [id number] [facility] [address],[place] [address] 11/16/2020 16:36:08 11/16/2020 17:19:10 screening 917672365 Z36.82 [id number] Darío Alfonso MD [place] [address],[place] [address] 11/16/2020 16:39:07 11/17/2020 19:06:39 Routine care 924681352 Z34.91 88953 Parul Chavez [place] [address],[place] [address] 12/14/2020 16:31:01 12/14/2020 17:27:12 Routine care 886996453 Z34.92 44954 Almaz Prince [place] [address],[place] [address] 01/04/2021 15:16:00 01/04/2021 16:35:44 screening for malformation 246941200 Z36.3 [id number] Darío Alfonso MD [place] [address],[place] [address] 01/04/2021 15:17:53 01/04/2021 17:06:54 Routine care 597461205 Z34.91 screening 2437 41655 Z36.89 [id number] Darío Alfonso MD [place] [address],[place] [address] 01/18/2021 17:00:27 01/19/2021 15:11:44 Vaginal discharge 054528415 N89.[id number] [facility] [address],[place] [address] 01/29/2021 17:45:53 01/29/2021 18:06:[id number] [facility] [address],[place] [address] 02/26/2021 10:57:19 02/26/2021 11:36:58 Routine care 951191750 Z34.[id number] [facility] [address],[place] [address] 03/12/2021 14:10:38 03/12/2021 14:50:43 Routine care 368652020 Z34.92 [id number] Darío Alfonso MD [place] [address],[place] [address] 03/26/2021 14:21:54 03/26/2021 15:10:34 Routine care 824567800 Z34.91 [id number] Darío Alfonso MD [place] [address],[place] [address] 04/09/2021 15:14:24 04/09/2021 15:55:17 Routine care 919613485 Z34.91 [id number] Almaz Prince [place] [address],[place] [address] 04/16/2021 16:31:54 04/17/2021 15:09:17 Uterine size for dates discrepancy 417851512 O26.843 Z3A.34 [id number] Darío Alfonso MD [place] [address],[place] [address] 04/16/2021 16:34:09 04/17/2021 15:09:33 Routine care 911103199 Z34.91 [id number] [facility] [address],[place] [address] 04/30/2021 16:52:00 04/30/2021 17:16:22 Doyle breech presentation 88855386 O32.1XX9 Z3A.36 [id number] Darío Alfonso MD [place] [address],[place] [address] 04/30/2021 16:52:00 04/30/2021 17:16:22 [id number] Darío Alfonso MD [place] [address],[place] [address] 04/30/2021 17:35:16 05/01/2021 09:48:47 Routine care 868709374 Z34.91 [id number] Parul Applejessica [place] [address],[place] [address] 05/07/2021 17:41:23 05/09/2021 15:37:09 Routine care 449620333 Z34.92 Breech presentation 6096 002 O32.1XX9 [id number] [facility] [address],[place] [address] 05/08/2021 16:56:49 05/08/2021 23:15:34 Uterine size for dates discrepancy 590236628 O26.843 O32.1XX9 Z3A.37 [id number] Darío Alfonso MD [place] [address],[place] [address] 05/17/2021 16:31:03 05/17/2021 17:08:37 Postoperative care 859342800 Z48.89 This patient is a 20-year-ol d female presents for postop follow-up. She is 1 week postop from a delivery. She has no complaints . Her incisions are clean dry and intact. She will follow-up in 3 weeks. Her mood is good. Her baby is doing well. [id number] Darío Alfonso MD [place] [address] [address] 06/04/2021 17:07:55 06/04/2021 18:16:20 care 041562483 Z39.2 This patient is a 20-year-ol d [...] Guerrero Member ID Guarantor Name 04/30/2021 1 [facility] ON OR AFTER 03/15/21 (MEDICAID REPLACEMENT - HMO) Val Rodriguez [id number] Val Rodriguez 05/07/2021 1 [facility] ON OR AFTER 03/15/21 (MEDICAID REPLACEMENT - HMO) Val Rodriguez [id number] Val Rodriguez 05/08/2021 1 [facility] ON OR AFTER 03/15/21 (MEDICAID REPLACEMENT - HMO) Val Rodriguez [id number] Val Rodriguez 05/17/2021 1 [facility] ON OR AFTER 03/15/21 (MEDICAID REPLACEMENT - HMO) Val Rodriguez [id number] Val Rodriguez 06/04/2021 1 [facility] ON OR AFTER 03/15/21 (MEDICAID REPLACEMENT - HMO) Val Rodriguez [id number] Val Rodriguez Notes Date Note Type Note [...] well. Darío Alfonso MD [address], [place], [address], [facility] 05/17/2021 16:58:03 06/04/2021 text/html This patient [...] sex. Darío Alfonso MD [address], [place], [address], [facility] 06/04/2021 17:51:41 OBGyn Episode Ob Episode Information Episode Created Date Number of Fetuses Patient Bloodtype Patient rh Status Prepregnancy Weight lbs Domestic Partner Domestic Partner Phone Father Name Salesperson Handbags Status 10/17/19 21 1 CLOSED Fetus Data [...] Domestic Partner Domestic Partner Phone Father Name Salesperson Handbags Status 11/17/19 21 1 A Positive 146 [...] e Paratubal cyst arising in mesonephric duct 010399595 Complete breech presentation [id number] 04/30 u/s for presentation Double artery 49754582 double renal artery Ward Calculation Initial Ward [...] Weight in lbs Pre/Post Dialysis Refused Weight [id number] BP Diastolic BP Location Tested BP Systolic [...] Weight in lbs Pre/Post Dialysis Refused Weight 144.444565975299 BP Diastolic BP Location Tested BP Systolic [...] Weight in lbs Pre/Post Dialysis Refused Weight 147.412364410697 BP Diastolic BP Location Tested BP Systolic [...] Weight in lbs Pre/Post Dialysis Refused Weight 151.030927612066 BP Diastolic BP Location Tested BP Systolic [...] Weight in lbs Pre/Post Dialysis Refused Weight 151.989304103980 BP Diastolic BP Location Tested BP Systolic [...] Weight in lbs Pre/Post Dialysis Refused Weight 156.739275134823 BP Diastolic BP Location Tested BP Systolic [...] Weight in lbs Pre/Post Dialysis Refused Weight 158.031726470431 BP Diastolic BP Location Tested BP Systolic [...] Weight in lbs Pre/Post Dialysis Refused Weight 160.124725585895 BP Diastolic BP Location Tested BP Systolic BP Type 67 R arm 107 sitting Fetus Heart Rate Present A 145 Fetus Movement Comments Flowsheet Date 04/09/2021 Diehl Score Blood Edema Fundus Height Fundus Units Glucose Ketones Leukocytes Nitrite Labor Signs Protein Cervic Dilation Cervic Effacement Cervic Station trace 35 trace Type Weight in lbs Pre/Post Dialysis Refused Weight 165.657849339391 BP Diastolic BP Location Tested BP Systolic [...] Weight in lbs Pre/Post Dialysis Refused Weight 165.092595624002 BP Diastolic BP Location Tested BP Systolic [...] Weight in lbs Pre/Post Dialysis Refused Weight 171.732534181949 BP Diastolic BP Location Tested BP Systolic [...] Weight in lbs Pre/Post Dialysis Refused Weight 173.101519187681 BP Diastolic BP Location Tested BP Systolic [...] Estim ated Date of Delivery false Thalassemia (Luxembourger, Slovak, Mediterranean, Or Background): MCV < 80 false Neural Tube Defect (Meningomyelocele, Spina Bifi da, Or Anencephaly) false Congenital Heart Defect false Down Syndrome false Joe-Sachs (eg, Alevism, Cajun, Italian-[place]) f alse Segundo Disease false Sickle Cell Disease Or Trait () false Hemophilia Or Other Blood Disorders false Muscular Dystrophy false Cystic Fibrosis false [place]'s Chorea false Intellectual Disability/Autism false If Yes, [...]
== END 2024-12-10 13:05 | disposition home or self-care (01) ==
PROVIDERS: PCP Family Medicine; Visit Provider Family Medicine
DX: R10.9 Unspecified abdominal pain (principal); R10.2 Pelvic and perineal pain
CPT/HCPCS: 76830; 76856

== ENCOUNTER 2025-09-06 16:03 | Outpatient (CLI) | payer OTHER, SELFPAY ==
--- OUTSIDE RECORDS SUMMARY | 2025-09-06 16:07 | XMS_ITS | Data Portability ---
Author Organization [facility] [place] Address [address] [place] [place] [address] [place] [address] Assessment No assessment recorded. Plan of Treatment Reminders Order Date Submit Date Provider Last Modified By Organization Details Last Modified Time Details Appointments None recorded. Lab None recorded. Referral None recorded. Procedures None recorded. Surgeries section (SURG) 2020 021 [facility], [address], [place], [address], 11:38:38 Imaging US, obstetric, follow-up [address], [address], [address], [place], [address], 23:15:34 US, obstetric, limited 2020 021 [facility], [facility] [address], [address], [place], [address], 19:51:48 Medication Orders None recorded. Patient TargetsNo [...] Resul ting Lab: [facility] [address] [facility] [address] Tel: CULTU RE ----- ----- ----- --- No Group B strep isola fabrice at 2 days (rajinder ctive broth enhan cemen t) Not Available [facility] (Lab) [address], [place], [address], 05/05/2021 17:05:14 04/16/20 21 04/16/2021 US, garrett mathews, follo w-up No observ ation record ed. [email or web address], [place], [address], 04/16/2021 17:42:32 04/16/20 21 04/16/2021 US, garrett mathews, follo w-up No observ ation record ed. [email or web address] [address] [address], [place], [address], 04/17/2021 11:43:04 04/30/20 21 04/30/2021 , garrett mathews, limit ed No observ ation record ed. [email or web address] [address], [place], [address], 04/30/2021 17:17:01 04/30/20 21 04/30/2021 US, garrett mathews, limit ed No observ ation record ed. [email or web address] [address] [address], [place], [address], 05/01/2021 15:30:31 05/08/20 21 05/08/2021 US, obstluciana tric, follo w-up No observ ation [facility]. [facility] [address], [place], [address], 05/08/2021 17:58:32 05/08/20 21 05/08/2021 US, obste tric, follo w-up No observ ation record ed. [place] [address] [address], [place], [address], 05/09/2021 18:03:35 05/09/20 21 05/09/2021 US, obste tric, follo w-up No observ ation record ed. [address], [place], [address], 05/09/2021 17:39:53 Result Notes None recorded. 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 16:35:40 Complete breech presenta tion 44206162 Completed 04/30 u/s for presenta tion Mary Garcia [facility] 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 12:48:29 Pregnanc y detectio n examinat ion Completed 201510/17/2020 Encounte r for pregnanc y test, result positive ;Recorde d Elsewher e: No Locat ion: Prudence chowdhury [facility] S ource: EHR Digital Forensic Examiner rl: N Practi ce ID: 0001 Zack lable Time: 11:00:00 AM Alejandra barbosa, [facility] 12:48:15 Syphilis test finding 265356835 Completed 201510/17/2020 Encntr screen for infectio ns w sexl mode of transmis s;Record ed Elsewher e: No Locat ion: [facility] S ource: EHR Digital Forensic Examiner rl: N Practi ce ID: 0001 Zack lable Time: 11:00:00 AM Alejandra barbosa, [facility] 12:48:31 Gestatio n less than 9 weeks 737665362 Completed 201510/17/2020 Less than 8 weeks gestatio n of pregnanc y;Record ed Elsewher e: No Locat ion: [facility] S ource: EHR Digital Forensic Examiner rl: N Practi ce ID: 0001 Zack lable Time: 11:00:00 AM Alejandra barbosa, [facility] 12:48:01 Infectio n screenin g Completed 201510/17/2020 Encounte r for screenin g for oth infec/pa rastc diseases ;Recorde d Elsewher e: No [facility] S ource: EHR Digital Forensic Examiner lr: N Practi ce ID: 0001 Zack lable Time: 11:00:00 AM Alejandra barbosa [facility] 12:48:09 Secondar y amenorrh ea 611256291 Completed 201510/17/2020 Secondar y amenorrh ea;Recor ded Elsewher e: No [facility] S ource: EHR Digital Forensic Examiner rl: N Practi ce ID: 0001 Zack lable Time: 11:00:00 AM Alejandra barbosa, [facility] 1 12:48:25 Pregnanc y, childbir th and puerperi um finding Completed 201510/17/2020 Encntr for suprvsn of normal first preg, first trimeste r;Record ed Elsewher e: No Locat ion: Prudence [facility] S ource: EHR Digital Forensic Examiner rl: N Practi ce ID: 0001 Zack lable Time: 04:00:00 PM Alejandra barbosa, [facility] 12:48:18 Dizzines s and giddines s 678256660 Completed 201510/17/2020 Dizzines s and giddines s;Practi ce ID: 0001 Alejandra barbosa, [facility] 12:47:57 Clinical finding Completed 201510/17/2020 state, incident al;Pract ice ID: 0001 Alejandra barbosa, [facility] 12:47:52 Gestatio n period, 22 weeks [id number] Completed 201510/17/2020 22 weeks gestatio n of pregnanc y;Record ed Elsewher e: No [facility]: EHR Digital Forensic Examiner rl: N Practi ce ID: 0001 Zack lable Time: 02:45:00 PM Alejandra barbosa, [facility] 12:48:03 Pregnanc y, childbir th and puerperi um finding Completed 201510/17/2020 Encounte r for supervis ion of normal 1st pregnanc y, 2nd trimeste r;Record ed Elsewher e: No [facility] Digital Forensic Examiner rl: N Practi ce ID: 0001 Zack lable Time: 02:00:00 PM Alejandra barbosa, [facility] 12:48:19 Gestatio n period, 31 weeks [id number] Completed 201510/17/2020 31 weeks gestatio n of pregnanc y;Practi ce ID: 0001 Alejandra barbosa, [facility] 12:48:04 Finding of trunk structur e Completed 201510/17/2020 Oth diseases and conditio ns compl preg/chl dbrth;Pr actice ID: 0001 Alejandra barbosa, [facility] 12:48:34 Pregnanc y, childbir th and puerperi um finding Completed 201510/17/2020 Encntr for suprvsn of normal first preg, third trimeste r;Practi ce ID: 0001 Alejandra barbosa, [facility] 12:48:20 prematur e rupture of membrane s [id number] Completed 201510/17/2020 Pretrm sumit ROM, unsp time betw rupt and onst labr, 3rd tri;Prac jenni ID: 0001 Alejandra barbsoa, [facility] 12:48:24 False labor before 37 complete d weeks of gestatio n [id number] 868964 Completed 201510/17/2020 False labor before 37 complete d weeks of gest, third tri;Prac jenni ID: 0001 Alejandra barbosa, [facility] 12:48:00 Gestatio n period, 35 weeks [id number] Completed 201510/17/2020 35 weeks gestatio n of pregnanc y;Practi ce ID: 0001 Alejandra barbosa, [facility] 12:48:06 Normal pregnanc y in multigra jaya 90688370470 4106 Completed 201510/17/2020 Encounte r for suprvsn of normal pregnanc y, third trimeste r;Practi ce ID: 0001 Alejandra barbosa, [facility] 12:48:13 Prematur e labor 9724206 Completed 201510/17/2020 labor without delivery , third trimeste r;Practi ce ID: 0001 Alejandra barbosa, [facility] 12:48:22 Gestatio n period, 36 weeks [id number] Completed 201510/17/2020 36 weeks gestatio n of pregnanc y;Practi ce ID: 0001 Alejandra barbosa, [facility] 12:48:[address] Concept Completed 201510/17/2020 Decrease d movement s, third trimeste r, unsp;Pra ctice ID: 0001 Alejandra barbosa, [facility] 12:48:28 Gestatio n period, 38 weeks 83510648 Completed 201510/17/2020 38 weeks gestatio n of pregnanc y;Practi ce ID: 0001 Alejandra barbosa, [facility] 12:48:08 Term pregnanc y delivere d 38005727 Completed 201510/17/2020 Encounte r for full-ter m uncompli cated delivery ;Practic e ID: 0001 Alejandra barbosa, [facility] 12:48:32 Single live from singleto n pregnanc y 740860823 Completed 201510/17/2020 Single live ;Pr actice ID: 0001 Alejandra barbosa, [facility] 12:48:26 Lochia finding Completed 201510/17/2020 Encounte r for routine postpart um follow-u p;Record ed Elsewher e: No [facility]: EHR Digital Forensic Examiner rl: N Practi ce ID: 0001 Zack lable Time: 02:15:00 PM Alejandra barbosa, [facility] 1 12:48:12 Procedur e by method Completed 201510/17/2020 Encounte r for other general counseli ng and advice on contrace ption;Re corded Elsewher e: No Locat ion: [facility] Practi ce ID: 0001 Zack lable Time: 02:15:00 PM Alejandra barbosa, [facility] 12:47:59 Clinical finding Completed 201510/17/2020 Presence of (intraut erine) contrace ptive device;R ecorded Elsewher e: No Locat ion: [facility] N Practi ce ID: 0001 Zack lable Time: 03:00:00 PM Alejandra barbosa, [facility] 12:47:54 Pregnanc y test negative [id number] Completed 201510/17/2020 Encounte r for pregnanc y test, result negative ;Recorde d Elsewher e: No Locat ion: [facility] S ource: EHR Digital Forensic Examiner rl: N Practi ce ID: 0001 Zack lable Time: 03:00:00 PM Alejandra barbosa, [facility] 1 12:48:16 Insertio n of intraute rine contrace ptive device Completed 201510/17/2020 Encounte r for insertio n of intraute rine contrace ptive device;R ecorded Elsewher e: No Locat ion: [facility] S ource: EHR Digital Forensic Examiner rl: N Practi ce ID: 0001 Zack lable Time: 03:00:00 PM Alejandra Kiko [facility] 12:48:11 Contrace ptive sheath status 072472147 Completed 201610/17/2020 IUD follow up;Recor ded Elsewher e: No Locat ion: Prudence chowdhury [facility] S ource: EHR Digital Forensic Examiner rl: N Practi ce ID: 0001 Zack lable Time: 06:30:00 PM Alejandra Hoover [facility] 12:47:56 Pregnanc y 13605911 Completed 202005/15/2021 Mary Radha [facility] 16:35:44 Problem Notes None recorded. Procedures Surgical History Date Name Laterality Status Provider Name and Address Organization Details Recorded Time SECTION (SURG) completed Kenyetta Wray [facility] 05/10/2021 11:38:39 Date of Last Pap Smear completed Alejandra Hoover [facility] 10/17/2020 16:26:29 Imaging Results None recorded. Procedure Notes None recorded. Medical Equipment None Reported. Allergies Allergen ID Allergen Name Allergen Category Reaction Reaction Severity Criticality Documentation Date Start Date Code Code System Note Provider Name and Address Organization Details Recorded Time 56942 amoxicill in medicatio n Not available Not available Not available 10/19/2020 723 RxNorm Alejandra Hoover [facility] 15:51:00 40158 Product containin g penicilli n (product) medicatio n Not available Not available Not available 10/19/2020 64658 8001 SNOMED Alejandra Hoover [facility] 15:51:11 58241 Macrobid medicatio n Not available Not available Not available 10/19/2020 14450 1 RxNorm Alejandra Hoover [facility] 15:51:17 9944 azithromy stella medicatio n Not available Not available Not available 09/01/2020 35275 RxNorm Alejandra Kiko [facility] 16:26:03 Medications Name Sig Start [...] Prescrib ed Elsewher e: Yes Loca tion: [facility] odify By: modesto marionunter DateTime : 10/17/19 17 06:30:00 PM Not Available Not Available Not Available fluconazo le 150 mg tablet 06/04 completed Not Available Not Available Not Available Vitamin D2 1,250 mcg (50,000 unit) capsule take 1 capsule by oral route every week 10/17 completed Prescrib ed Elsewher e: No Locat ion: [facility] odify By: modesto marionuntnayana DateTime : 12/27/19 16 03:31:18 PM Not Available Not Available Not Available ketoconaz ole 2 % topical cream 06/04 completed Not Available Not Available Not Available Stool Softener 50 mg capsule take 1 capsule by oral route every day at bedtime as needed 10/17 completed Prescrib ed Elsewher e: Yes Loca tion: [facility] odify By: modesto marionuntnayana DateTime : 10/17/19 17 06:30:00 PM Not Available Not Available Not Available Stool Softener active Not Available Not Available Not Available active Not Available Not Avai lable Not Available Trivelyla-D uo DHA 29 mg-1 mg-400 mg oral pack take 2 by Oral route once for 30 days 12/12 completed Prescrib ed Elsewher e: No Locat ion: [facility] odify By: franco rosario DateTime : 11/14/19 11:00:00 AM Not Available Not Available Not Available Vitals Date Recorded Body height Body mass index (BMI) Body weight Systolic And Diastolic Provider Name and Address Organization Details Last Updated DateTime 04/30/2021 170.18 cm 26.8 kg/m2 62125.295 27 g 113/72 mm[Hg] Leena [facility] 04/30/2021 17:47:55 Date Recorded Body height Body mass index (BMI) Body weight Systolic And Diastolic Provider Name and Address Organization Details Last Updated DateTime 05/07/2021 170.18 cm 27.1 kg/m2 67666.480 01 g 113/74 mm[Hg] Alejandra Hoover [facility] 05/07/2021 17:48:22 Date Recorded Body height Body mass index (BMI) Body weight Systolic And Diastolic Provider Name and Address Organization Details Last Updated DateTime 05/17/2021 170.18 cm 24 kg/m2 16036.63 g 114/65 mm[Hg] [facility] 05/17/2021 16:48:24 Date Recorded Body height Body mass index (BMI) Body weight Systolic And Diastolic Provider Name and Address Organization Details Last Updated DateTime 06/04/2021 170.18 cm 23.5 kg/m2 76196.86 g 126/75 mm[Hg] [facility] 06/04/2021 17:28:30 Social History Question Answer Notes LastModified by [employer] Details LastModified Time Tobacco Smoking Status Never Smoker Alejandra Hoover [facility] 10/17/2020 16:28:00 If You Are , What Was Your Level Of Alcohol Consumption Prior To ? None [email or web address] Information not available 10/17/2020 What Is Your Level Of Caffeine Consumption? None [email or web address] Information not available 10/17/2020 Has Tobacco Cessation Counseling Been Provided? No [email or web address] Information not available 10/17/2020 Sex: Unknown Functional Status Question Answer Note LastModified by [employer] Details LastModified Time Do you use any illicit or recreational drugs? No [email or web address] Information not available 10/17/2020 Do you or have you ever used any other forms of tobacco or nicotine? No [email or web address] Information not available 10/17/2020 What is your level of alcohol consumption? None [email or web address] Information not available 10/17/2020 What is your exercise level? None [email or web address] Information not available 10/17/2020 Mental Status None recorded. Family History Relationship Description Onset Age of this Age Resolved Age Notes LastModified by Organization Details LastModified Time Father Seizure disorder Not available 2020 16:27:44 Medical History Condition Response Allergies (Food, seasonal, environmental ) N Other N Drug/Latex Allergies/Reactions N Blood Transfusion N Breast Cancer N Dermatologic Disorders N Lung Disease N Defects or Inherited Disease N Breast Problem N Gestational Diabetes N Hematologic disorders N Anesthesia Complications N History of STI N Deep Vein Thrombosis N Polycystic ovary syndrome N Anxiety Disorder N Autoimmune disease N Arthritis N Polyps N Infertility N Acid Reflux (GERD) N History of abnormal pap N Cancer N Varicosities N Stroke N Neurologic/Epilepsy N Endometriosis N High Cholesterol N Fibromyalgia N Headaches N Kidney Disease N Heart Problems N [...] Diagnosis SNOMED-CT Code Diagnosis ICD10 Code Diagnosis IMO Codes Diagnosis Note [id number] Parul Chavez CNM [place] [address] [address] 10/19/2020 15:34:19 10/19/2020 17:42:55 Gynecologic examination 28812356 Z01.419 test positive 715209851 Z32.01 Risk factors addressed: Tobacco Cessation, Safe [...] annual well woman examinatio n and address [facility] . Additional precaution bc measures were taken to minimize potential exposure to the Covid-19 virus during this patient s visit, including available hand sales floor team member upon arrive, temperatur e check and being asked a series of screening questions. All staff wore face coverings during this encounter, as well as provided additional cleaning and sanitizing of all surfaces, including countertop s, pens, chairs, door handles, light switches, etc, prior to and following the patient s visit. [address]1787 Darío Alfonso MD [place] [address],[place] [address] 10/19/2020 15:38:04 10/20/2020 08:16:34 test positive 741431890 Z32.01 90041 Darío Alfonso MD [place] [address],[place] [address] 11/16/2020 16:36:08 11/16/2020 17:19:10 screening 163590737 Z36.82 62244 Darío Alfonso MD [place] [address],[place] [address] 11/16/2020 16:39:07 11/17/2020 19:06:39 Routine care 137165329 Z34.91 21961 [facility] [address],[place] [address] 12/14/2020 16:31:01 12/14/2020 17:27:12 Routine care 830739443 Z34.92 11341 Darío Alfonso MD [place] [address],[place] [address] 01/04/2021 15:16:00 01/04/2021 16:35:44 screening for malformation 769812852 Z36.3 06490 MD Luba Reid [address],[place] [address] 01/04/2021 15:17:53 01/04/2021 17:06:54 Routine care 468876799 Z34.91 screening 2437 52083 Z36.89 45280 Darío Alfonso MD [place] [address],[place] [address] 01/18/2021 17:00:27 01/19/2021 15:11:44 Vaginal discharge 546581724 N89.8 37285 Parul Chavez CNM [place] [address],[place] [address] 01/29/2021 17:45:53 01/29/2021 18:06:13 68389 Parul Chavez CNM [place] [address],[place] [address] 02/26/2021 10:57:19 02/26/2021 11:36:58 Routine care 728807481 Z34.92 04845 Parul Chavez CNM [place] [address],[place] [address] 03/12/2021 14:10:38 03/12/2021 14:50:43 Routine care 984388497 Z34.92 24750 Darío Alfonso MD [place] [address],[place] [address] 03/26/2021 14:21:54 03/26/2021 15:10:34 Routine care 452945874 Z34.91 93586 MD Luba eRid [address],[place] [address] 04/09/2021 15:14:24 04/09/2021 15:55:17 Routine care 005971707 Z34.91 45725 Darío Alfonso MD [place] [address],[place] [address] 04/16/2021 16:31:54 04/17/2021 15:09:17 Uterine size for dates discrepancy 339237343 O26.843 Z3A.34 65505 MD Luba Reid [address],[place] [address] 04/16/2021 16:34:09 04/17/2021 15:09:33 Routine care 006755079 Z34.91 68295 MD Luba Reid [address],[place] [address] 04/30/2021 16:52:00 04/30/2021 17:16:22 Doyle breech presentation 55317026 O32.1XX9 Z3A.36 06931 Darío Alfonso MD [place] [address],[place] [address] 04/30/2021 16:52:00 04/30/2021 17:16:22 07288 MD Luba Reid [address],[place] [address] 04/30/2021 17:35:16 05/01/2021 09:48:47 Routine care 087178564 Z34.91 75716 [facility] [address],[place] [address] 05/07/2021 17:41:23 05/09/2021 15:37:09 Routine care 189033828 Z34.92 Breech presentation 6096 002 O32.1XX9 24974 Darío Alfonso MD [place] [address],[place] [address] 05/08/2021 16:56:49 05/08/2021 23:15:34 Uterine size for dates discrepancy 950248822 O26.843 O32.1XX9 Z3A.37 31072 Darío Alfonso MD [place] [address] [address] 05/17/2021 16:31:03 05/17/2021 17:08:37 Postoperative care 008276314 Z48.89 This patient is a 20-year-ol d female presents for postop follow-up. She is 1 week postop from a delivery. She has no complaints . Her incisions are clean dry and intact. She will follow-up in 3 weeks. Her mood is good. Her baby is doing well. 62950 Darío Alfonso MD [place] [address] [address] 06/04/2021 17:07:55 06/04/2021 18:16:20 care 143645078 Z39.2 This patient is a 20-year-ol d [...] Recorded Advance Directives Directive None Recorded Payers Insurance Date Sequence Insurance Name Policy Number Policy Guerrero Covered Member ID Guerrero Member ID Guarantor Name 11/16/2020 SLIDING FEE SCHEDULE - DISCOUNT Val Rodriguez 07/24/2021 1 [place] [employer] [place] [employer] Val Rodriguez [id number] Val Rodriguez 03/23/2021 1 [facility] - DOS PRIOR TO 2021 (MEDICAID REPLACEMENT - HMO) Val Rodriguez [id number] Val Rodriguez 07/24/2021 1 [facility] - DOS ON OR AFTER 21 (MEDICAID REPLACEMENT - HMO) Val Rodriguez [id number] Val Rodriguez Notes Date Note Type Note Provider Name and Address Organization Details Recorded Time 04/30/2021 text/html Generic HPI TemplateReported by Patient Darío Alfonso MD [address], [place], [address], [facility] 04/30/2021 18:30:30 05/07/2021 text/html Generic HPI TemplateReported by Patient Parul barbosa, [facility] 05/07/2021 18:51:43 05/17/2021 text/html This patient is a 20-year-old female presents for postop follow-up. She is 1 week postop from a delivery. She has no complaints. Her incisions are clean dry and intact. She will follow-up in 3 weeks. Her mood is good. Her baby is doing well. Darío Alfonso MD [address], [place], [address], [facility] 05/17/2021 16:58:03 06/04/2021 text/html VisitReported by Patient This patient is a 20-year-old female presents [...] sex. Darío Alfonso MD [address], [place], [address], [facility] 06/04/2021 17:51:41 OBGyn Episode Ob Episode Information Episode Created Date Number of Fetuses Patient Bloodtype Patient rh Status Prepregnancy Weight lbs Domestic Partner Domestic Partner Phone Father Name Maintenance Data Analyst Status 10/17/19 21 1 CLOSED Fetus Data [...] Domestic Partner Domestic Partner Phone Father Name Maintenance Data Analyst Status 11/17/19 21 1 A Positive 146 [...] might be old results with less mutations. [email or web address] severino Problem Name Start Date End Date Resolution Snomed Code Not e Paratubal cyst arising in mesonephric duct 122366301 Complete breech presentation 90497704 04/30 u/s for presentation Double artery 85810943 double renal artery Ward Calculation Initial Ward [...] Weight in lbs Pre/Post Dialysis Refused Weight 143.099019417586 BP Diastolic BP Location Tested BP Systolic [...] a term vaginal of a 7 lb . To begin routine care. She is having genetic testing. Flowsheet Date 12/14/2020 Diehl Score Blood Edema Fundus Height Fundus Units Glucose Ketones Leukocytes Nitrite Labor Signs Protein Cervic Dilation Cervic Effacement Cervic Station none trace Type Weight in lbs Pre/Post Dialysis Refused Weight [id number] BP Diastolic BP Location Tested BP Systolic [...] Weight in lbs Pre/Post Dialysis Refused Weight 147.474712314245 BP Diastolic BP Location Tested BP Systolic [...] Weight in lbs Pre/Post Dialysis Refused Weight 151.359444765380 BP Diastolic BP Location Tested BP Systolic [...] Weight in lbs Pre/Post Dialysis Refused Weight 151.184023916467 BP Diastolic BP Location Tested BP Systolic [...] Weight in lbs Pre/Post Dialysis Refused Weight 156.219192322930 BP Diastolic BP Location Tested BP Systolic [...] Weight in lbs Pre/Post Dialysis Refused Weight 158.067418373839 BP Diastolic BP Location Tested BP Systolic [...] Weight in lbs Pre/Post Dialysis Refused Weight 160.256888854042 BP Diastolic BP Location Tested BP Systolic BP Type 67 R arm 107 sitting Fetus Heart Rate Present A 145 Fetus Movement Comments Flowsheet Date 04/09/2021 Diehl Score Blood Edema Fundus Height Fundus Units Glucose Ketones Leukocytes Nitrite Labor Signs Protein Cervic Dilation Cervic Effacement Cervic Station trace 35 trace Type Weight in lbs Pre/Post Dialysis Refused Weight 165.948673424906 BP Diastolic BP Location Tested BP Systolic [...] Weight in lbs Pre/Post Dialysis Refused Weight 165.481638431401 BP Diastolic BP Location Tested BP Systolic [...] Weight in lbs Pre/Post Dialysis Refused Weight 171.705712664993 BP Diastolic BP Location Tested BP Systolic [...] Weight in lbs Pre/Post Dialysis Refused Weight 173.380453332691 BP Diastolic BP Location Tested BP Systolic [...] Estim ated Date of Delivery false Thalassemia (Malagasy, Luxembourgish, Mediterranean, Or Background): MCV < 80 false Neural Tube Defect (Meningomyelocele, Spina Bifi da, Or Anencephaly) false Congenital Heart Defect false Down Syndrome false Joe-Sachs (eg, Lutheran, Cajun, Eritrean-[place]ok[place]) f alse Segundo Disease false Sickle Cell Disease Or Trait () false Hemophilia Or Other Blood Disorders false Muscular Dystrophy false Cystic Fibrosis false Maries's Chorea false Intellectual Disability/Autism false If Yes, [...]
[2025-09-06 16:13] LABS: Appearance Urine Clear (Clear); Glucose Urine UA Negative (Negative); Leukocyte Esterase Ur Negative (Negative); Nitrate Urine Negative (Negative); Specific Grav Ur >= 1.030 (1.010-1.020)
[2025-09-06 16:14] LABS: Hematocrit 41.6 % (35.0-49.0); Hemoglobin 13.5 g/dL (12.0-15.0); Immature Granulocyte Percent A 0.2 % (0.0-0.0); Lymphocytes Absolute Auto 1.06 K/mm3 (1.10-4.50); Mean Corpuscular HGB Conc 32.5 g/dL (32-36); Mean Corpuscular Hemoglobin 28.2 pg (27.0-31.0); Mean Corpuscular Volume 87.0 fL (78.0-102.0); Nucleated Red Blood Cells Absolute Auto 0.00 K/mm3 (0.00-0.00); Nucleated Red Blood Cells Perc 0.0 % (0-0.0); Platelet Count Result 260 K/mm3 (150-420); Red Blood Count 4.78 M/mm3 (4.20-5.40); White Blood Count 6.4 K/mm3 (4.8-10.8)
[2025-09-06 16:15] LABS: Add Urine Microscopic? YES
[2025-09-06 16:33] LABS: Alanine Aminotransferase 48 U/L (6-35); Albumin Level 4.9 g/dL (3.5-5.1); Alkaline Phosphatase 96 U/L (38-126); Anion Gap 13 mmol/L (4-12); Aspartate Amino Transferase 32 U/L (14-36); Bilirubin,Total 0.7 mg/dL (0.2-1.3); Blood Urea Nitrogen 8 mg/dL (7-17); CRP 1.5 mg/dL (<1.0); Calcium 10.0 mg/dL (8.4-10.2); Carbon Dioxide 23 mmol/L (22-30); Chloride 104 mmol/L (98-107); Estimated Glomerular Filt Rate > 60; Glucose 91 mg/dL (65-110); Osmolality Calculated 288 mOsm/kg (285-295); Potassium 3.9 mmol/L (3.4-5.0); Sodium 140 mmol/L (137-145); Total Protein 8.2 g/dL (6.3-8.2)
[2025-09-06 17:04] LABS: Thyroid Stimulating Hormone 1.760 uIU/mL (0.465-4.680)
== END 2025-09-06 16:04 | disposition home or self-care (01) ==
PROVIDERS: PCP Family Medicine; Visit Provider Family Medicine
DX: R59.1 Generalized enlarged lymph nodes (principal)
CPT/HCPCS: 36415; 80053; 81001; 84443; 85025; 85652; 86140

== ENCOUNTER 2025-09-08 19:33 | Emergency (ER) | payer OTHER, SELFPAY ==
[2025-09-08] VITALS (20 sets, daily range): BP systolic 100–129; BP diastolic 58–96; PULSE 91–118; RESP 16–20; TEMP 36.8–38.9; O2SAT 96–100
--- NOTE | ~2025-09-08 | CT_ITS ---
EXAMINATION: CT soft tissue neck w con DATE: 09/08/2025 20:48 INDICATION: Lymphadenitis. Left throat swelling. TECHNIQUE: Computed tomography (CT) of the neck was performed with 75 mL Omnipaque-350 intravenous contrast. Automated exposure control and iterative reconstruction technique were employed. The dose-length product was 463.93 mGy-cm. COMPARISON: None FINDINGS: Orbits are normal. Mucosal thickening in the left maxillary, sphenoid and ethmoid sinuses. Mastoid air cells and middle ear cavities are clear. Submandibular and parotid glands are normal and symmetric. Thyroid gland is unremarkable. There are multiple mildly prominent but still normal-sized bilateral jugular chain lymph nodes, all measuring <9 mm in short axis diameter and which are likely reactive. No pathologically enlarged cervical lymphadenopathy. Mild swelling of the bilateral lingual and palatine tonsils. No abscess. Normal epiglottis and prevertebral soft tissues. No masses identified. The vasculature is patent and normal in caliber. Airway is normal. Superior mediastinum is unremarkable. Visualized upper lungs are clear. Bones are unremarkable. IMPRESSION: 1. Mild swelling of the lingual and palatine tonsils without abscess. 2. Multiple mildly prominent but still normal-sized bilateral jugular chain lymph nodes which are likely reactive. No pathologically enlarged lymphadenopathy. Reviewed, dictated and finalized at location A. FARMER IMPRESSION: 1. Mild swelling of the lingual and palatine tonsils without abscess. 2. Multiple mildly prominent but still normal-sized bilateral jugular chain lym ph nodes which are likely reactive. No pathologically enlarged lymphadenopathy.
--- NOTE | ~2025-09-08 | XR_ITS ---
EXAMINATION: XR chest 1V portable 09/08/2025 19:49 INDICATION: Fever and cough PROCEDURE: AP portable chest COMPARISON: No prior studies for comparison. FINDINGS: The lungs are clear. The cardiomediastinal silhouette is within normal limits. There are no pleural effusions. There is no pneumothorax suspected. IMPRESSION: 1: NO ACUTE CARDIOPULMONARY DISEASE. Reviewed, dictated and finalized at location O. [employer]
--- NOTE | 2025-09-08 19:46 | PC.NURSE ---
SWAB OBTAINED AND TAKEN DOWN TO LAB. AGUAYO WITH XRAY AT THE BEDSIDE
--- NOTE | 2025-09-08 19:46 | PC.NURSE ---
covid swab sent to lab
--- NOTE | 2025-09-08 19:59 | PC.NURSE ---
PATIENT AMBULATED TO THE BATHROOM TO GIVE URINE SAMPLE. LAB WAS NOTIFIED OF BLOOD WORK THAT IS NEEDED. DR HILLMAN IS NOW AT THE BEDSIDE
--- NOTE | 2025-09-08 20:05 | ED.GENADULT ---
HPI - General Adult General Chief complaint: Fever Stated complaint: not feeling well Time Seen by Provider: 09/08/25 19:43 History of Present Illness HPI narrative: Val is a 24F with a PMH of lymphadenopathy requiring surgery that presented to the ED swollen painful lymph nodes. It started 2 months prior but became much worse 2 days ago. It was more painful, was accompanied by fever, chills, body aches, cough and fatigue. Her PCP called her abx yesterday but she was not able to get them. She had tylenol a few hours ago. Related Data Home Medications ?Medication ?Instructions ?Recorded ?Confirmed ?Last Taken ?Type omeprazole 20 mg tablet,delayed 20 mg PO DAILY 07/14/24 07/28/24 1 Day Ago History release ~07/16/24 vits no.126-ferrous fum 1 tablet PO DAILY 07/14/24 07/28/24 1 Day Ago History 28 mg iron-folic acid 800 mcg ~07/16/24 tablet (Classic ) Allergies Allergy/AdvReac Type Severity Reaction Status Date / Time amoxicillin Allergy Unknown Hives, Verified 09/08/25 20:39 swelling azithromycin Allergy Unknown Hives, Verified 09/08/25 20:39 itching nitrofurantoin Allergy Unknown muscle Verified 09/08/25 20:39 spasms Penicillins Allergy Unknown Hives, Verified 09/08/25 20:39 swelling PMFSH Past Medical History Medical History No active medical problems Surgical History Surgical History No pertinent past surgical history Family History Family History Father Family history of seizure disorder Father Epilepsy Mother Blood clotting disorder Other Family history of allergic disorder Family history of malignant neoplasm Hypertension Social History Social History Smoking status: Never smoker Alcohol intake: never Substance use: never Lack of Transportation: No Lack of Food: Never True Current Housing: I Have Housing Concerned About Future Housing: No Difficulty Paying Gas/Electric Bills: No Difficulty Paying for Meds: No Currently Unemployed: No Education: Decline to Answer Difficulty w/ Childcare or Family Care: No Spiritual care concerns: No Course Course Emergency Course: Her case is very concerning for sepsis. Rapid labs were drawn as well as cultures. Antibiotics were ordered as well as fluids. Ordered UA, CXR and CT neck. Influenza B positive. The remainder of her CBC was largely unremarkable. CMP showed mildly low carbon dioxide and mildly elevated anion gap. UA largely unremarkable. CT showed Prominent cervical lymph nodes, faucial and lingual tonsils. No evidence of abscess or epiglottitis Incidental Findings: Chronic ethmoid, left sphenoid and maxillary sinusitis. No comparisons. She was feeling better and discharged. Vital Signs Vital signs: Vital Signs Temperature 98.2 F 09/08/25 19:34 Pulse Rate 118 H 09/08/25 19:34 Respiratory Rate 18 09/08/25 19:34 Blood Pressure 129/84 09/08/25 19:34 Pulse Oximetry 97 09/08/25 19:34 Oxygen Delivery Room Air 09/08/25 19:34 Temperature 102.1 F H 09/08/25 20:23 Pulse Rate 117 H 09/08/25 20:10 Respiratory Rate 20 09/08/25 20:10 Blood Pressure 124/74 09/08/25 20:10 Pulse Oximetry 99 09/08/25 20:10 Oxygen Delivery Autopap 09/08/25 20:10 MDM Differential Diagnosis Differential Diagnosis: Influenza vs sepsis vs lymphangitis vs lymphoma vs other Lab Data 09/08/25 20:07 09/08/25 20:07 Labs: Lab Results 09/08/25 09/08/25 09/08/25 Range/Units 19:44 20:03 20:07 WBC 7.0 (4.8-10.8) K/mm3 RBC 4.36 (4.20-5.40) M/mm3 Hgb 12.3 (12.0-15.0) g/dL Hct 38.1 (35.0-49.0) % MCV 87.4 (78.0-102.0) fL MCH 28.2 (27.0-31.0) pg MCHC 32.3 (32-36) g/dL RDW 13.0 (11.6-14.4) % Plt Count 219 (150-420) K/mm3 MPV 10.6 (9.2-11.8) fl Immature Gran % (Auto) 0.3 H (0.0-0.0) % Neut % (Auto) 78.8 H (50.0-70.0) % Lymph % (Auto) 11.7 L (18.0-42.0) % Hooker % (Auto) 8.5 (2.0-11.0) % Eos % (Auto) 0.4 L (1.0-6.0) % Baso % (Auto) 0.3 (0.0-1.0) % Lymph # (Auto) 0.82 L (1.10-4.50) K/mm3 Hooker # (Auto) 0.59 (0.10-0.90) K/mm3 Eos # (Auto) 0.03 (0.02-0.50) K/mm3 Baso # (Auto) 0.02 (0.00-0.10) K/mm3 Abs Immat Gran (auto) 0.02 H (0.00-0.00) K/mm3 Absolute Neuts (auto) 5.50 (1.70-7.20) K/mm3 Absolute Nucleated RBC 0.00 (0.00-0.00) K/mm3 Nucleated RBC % 0.0 (0-0.0) % Sodium 139 (137-145) mmol/L Potassium 3.4 (3.4-5.0) mmol/L Chloride 106 (98-107) mmol/L Carbon Dioxide 20 L (22-30) mmol/L Anion Gap 13 H (4-12) mmol/L BUN 5 L (7-17) mg/dL Creatinine 0.77 (0.7-1.0) mg/dL Estim Creat Clear Calc 95 ml/min Estimated GFR > 60 (59 - ) Glucose 103 (65-110) mg/dL Calculated Osmolality 285 (285-295) mOsm/kg Lactic Acid 0.8 (0.7-2.0) mmol/L Calcium 8.5 (8.4-10.2) mg/dL Total Bilirubin 0.4 (0.2-1.3) mg/dL AST 33 (14-36) U/L ALT 36 H (6-35) U/L Alkaline Phosphatase 93 (38-126) U/L Total Protein 7.8 (6.3-8.2) g/dL Albumin 4.5 (3.5-5.1) g/dL Urine Color Light yellow (Yellow) Urine Appearance Clear (Clear) Urine pH 7.5 (5.0-8.0) Ur Specific Pitman 1.015 (1.010-1.020) Urine Protein Negative (Negative) Urine Glucose (UA) Negative (Negative) Urine Ketones Trace H (Negative) Ur Blood (Man) Negative (Negative) Urine Nitrate Negative (Negative) Urine Bilirubin Negative (Negative) Urine Urobilinogen 1.0 (0.2-1.0) mg/dL Leukocyte Esterase Rfl Negative (Negative) XI/UL Urine Test Influenza A (RT-PCR) Negative (Negative) Influenza B (RT-PCR) Positive A (Negative) RSV (RT-PCR) Negative (Negative) SARS-CoV-2 RNA (RT-PCR) Negative (Negative) Group A Strep (PCR) Not detected (Negative) 09/08/25 Range/Units 20:21 WBC (4.8-10.8) K/mm3 RBC (4.20-5.40) M/mm3 Hgb (12.0-15.0) g/dL Hct (35.0-49.0) % MCV (78.0-102.0) fL MCH (27.0-31.0) pg MCHC (32-36) g/dL RDW (11.6-14.4) % Plt Count (150-420) K/mm3 MPV (9.2-11.8) fl Immature Gran % (Auto) (0.0-0.0) % Neut % (Auto) (50.0-70.0) % Lymph % (Auto) (18.0-42.0) % Hooker % (Auto) (2.0-11.0) % Eos % (Auto) (1.0-6.0) % Baso % (Auto) (0.0-1.0) % Lymph # (Auto) (1.10-4.50) K/mm3 Hooker # (Auto) (0.10-0.90) K/mm3 Eos # (Auto) (0.02-0.50) K/mm3 Baso # (Auto) (0.00-0.10) K/mm3 Abs Immat Gran (auto) (0.00-0.00) K/mm3 Absolute Neuts (auto) (1.70-7.20) K/mm3 Absolute Nucleated RBC (0.00-0.00) K/mm3 Nucleated RBC % (0-0.0) % Sodium (137-145) mmol/L Potassium (3.4-5.0) mmol/L Chloride (98-107) mmol/L Carbon Dioxide (22-30) mmol/L Anion Gap (4-12) mmol/L BUN (7-17) mg/dL Creatinine (0.7-1.0) mg/dL Estim Creat Clear Calc ml/min Estimated GFR (59 - ) Glucose (65-110) mg/dL Calculated Osmolality (285-295) mOsm/kg Lactic Acid (0.7-2.0) mmol/L Calcium (8.4-10.2) mg/dL Total Bilirubin (0.2-1.3) mg/dL AST (14-36) U/L ALT (6-35) U/L Alkaline Phosphatase (38-126) U/L Total Protein (6.3-8.2) g/dL Albumin (3.5-5.1) g/dL Urine Color (Yellow) Urine Appearance (Clear) Urine pH (5.0-8.0) Ur Specific Pitman (1.010-1.020) Urine Protein (Negative) Urine Glucose (UA) (Negative) Urine Ketones (Negative) Ur Blood (Man) (Negative) Urine Nitrate (Negative) Urine Bilirubin (Negative) Urine Urobilinogen (0.2-1.0) mg/dL Leukocyte Esterase Rfl (Negative) XI/UL Urine Test Negative Influenza A (RT-PCR) (Negative) Influenza B (RT-PCR) (Negative) RSV (RT-PCR) (Negative) SARS-CoV-2 RNA (RT-PCR) (Negative) Group A Strep (PCR) (Negative) Imaging Data Radiologist's impression: ITS Impressions Chest X-Ray 09/08/25 20:01 IMPRESSION: 1: NO ACUTE CARDIOPULMONARY DISEASE. Discharge Plan Discharge Clinical Impression: Influenza Patient Disposition: Home Condition: Stable Instructions: Influenza (ED) Patient Language: Togolese Prescriptions: New oseltamivir [Tamiflu] 75 mg capsule 75 mg PO Q12H 5 Days Qty: 10 0RF No Action Classic 28 mg iron- 800 mcg Tablet 1 tablet PO DAILY omeprazole 20 mg Tablet,Delayed Release (Dr/Ec) 20 mg PO DAILY Follow-up/Referrals: Stas Pineda MD [Primary Care Provider, Internal Medicine]
[2025-09-08 20:13] LABS: Hematocrit 38.1 % (35.0-49.0); Hemoglobin 12.3 g/dL (12.0-15.0); Immature Granulocyte Percent A 0.3 % (0.0-0.0); Lymphocytes Absolute Auto 0.82 K/mm3 (1.10-4.50); Mean Corpuscular HGB Conc 32.3 g/dL (32-36); Mean Corpuscular Hemoglobin 28.2 pg (27.0-31.0); Mean Corpuscular Volume 87.4 fL (78.0-102.0); Nucleated Red Blood Cells Absolute Auto 0.00 K/mm3 (0.00-0.00); Nucleated Red Blood Cells Perc 0.0 % (0-0.0); Platelet Count Result 219 K/mm3 (150-420); Red Blood Count 4.36 M/mm3 (4.20-5.40); White Blood Count 7.0 K/mm3 (4.8-10.8)
[2025-09-08] MEDS: KETOROLAC 15 MG/ML VIAL (*BKC) IV PUSH (20:16)
[2025-09-08 20:17] LABS: Strep Group A RT-PCR NOT DETECTED (Negative)
[2025-09-08] MEDS: SODIUM CHLORIDE 0.9% IV 1,000 ML 999 ML IV CONT (20:19)
--- NOTE | 2025-09-08 20:23 | PC.NURSE ---
VERIFIED WITH DR HILLMAN THAT HE WANTED BLOOD CULTURES BEFORE STARTING ANTIBIOTICS. ORDERS PLACED.
[2025-09-08 20:25] LABS: Add Urine Microscopic? NO; Appearance Urine Clear (Clear); Glucose Urine UA Negative (Negative); Leukocyte Esterase Ur Negative LEU/UL (Negative); Nitrate Urine Negative (Negative); Specific Grav Ur 1.015 (1.010-1.020)
[2025-09-08 20:26] LABS: Alanine Aminotransferase 36 U/L (6-35); Albumin Level 4.5 g/dL (3.5-5.1); Alkaline Phosphatase 93 U/L (38-126); Anion Gap 13 mmol/L (4-12); Aspartate Amino Transferase 33 U/L (14-36); Bilirubin,Total 0.4 mg/dL (0.2-1.3); Blood Urea Nitrogen 5 mg/dL (7-17); Calcium 8.5 mg/dL (8.4-10.2); Carbon Dioxide 20 mmol/L (22-30); Chloride 106 mmol/L (98-107); Estimated CRCL calculation 95 ml/min; Estimated Glomerular Filt Rate > 60; Glucose 103 mg/dL (65-110); Osmolality Calculated 285 mOsm/kg (285-295); Potassium 3.4 mmol/L (3.4-5.0); Sodium 139 mmol/L (137-145); Total Protein 7.8 g/dL (6.3-8.2)
[2025-09-08 20:28] LABS: Pregnancy On Board Control Positive
[2025-09-08 20:28] LABS: Influenza A QL RT-PCR Negative (Negative); Influenza B QL RT-PCR Positive (Negative); RSV RNA, RT-PCR Negative (Negative); SARS-CoV-2 RNA PCR Negative (Negative)
--- NOTE | 2025-09-08 20:31 | PC.NURSE ---
PATIENT WAS UPDATED THAT TESTED POSITIVE FOR INFLUENZA B. JELENA IN LAB WAS NOTIFIED THAT BLOOD CULTURES ARE NEEDED
--- NOTE | 2025-09-08 20:35 | PC.NURSE ---
OLIVIER WITH RADIOLOGY HERE TO TAKE PATIENT TO CT
[2025-09-08] MEDS: CLINDAMYCIN 600 MG/D5W 50 ML 600 MG/50 ML PIGGYBACK 100 MG IVPB (20:50)
--- NOTE | 2025-09-08 20:56 | PC.NURSE ---
RESTING ON STRETCHER. LIGHTS TURNED OFF FOR COMFORT. ANTIBIOTIC AND NS INFUSING TO RIGHT AC, SITE WITHOUT REDNESS OR SWELLING. PATIENT HAS CALL LIGHT IN REACH. NO NEEDS VOICED AT THIS TIME.
--- NOTE | 2025-09-08 21:19 | PC.NURSE ---
PATIENT IS CURRENTLY LAYING DOWN. AWARE THAT CT RESULTS WILL TAKE SOME TIME TO RESULT. CALL LIGHT IN REACH
--- NOTE | 2025-09-08 21:59 | PC.NURSE ---
PATIENT AMBULATED TO THE BATHROOM.
--- NOTE | 2025-09-08 22:28 | PC.NURSE ---
PATIENT IS RESTING ON STRETCHER WITH HER EYES CLOSED. RESP EVEN AND UNLABORED. LIGHTS TURNED OFF FOR COMFORT. CALL LIGHT IN REACH
--- NOTE | 2025-09-08 23:21 | PC.NURSE ---
RESTING QUIETLY ON STRETCHER. WAITING ON CT RESULTS. DENIES ANY NEEDS. CALL LIGHT IN REACH
--- NOTE | 2025-09-08 23:48 | PC.NURSE ---
CT REPORT HAS RESULTED. DR HILLMAN NOTIFIED.
--- NOTE | 2025-09-12 13:42 | PC.NURSE ---
blood preliminary no growth
--- NOTE | 2025-09-13 15:52 | PC.NURSE ---
PRELIMINARY BLOOD CULTURE RESULT; NO GROWTH IN 48 HOURS.
--- NOTE | 2025-09-16 13:37 | PC.NURSE ---
FINAL BLOOD CULTURE RESULT: NO AEROBIC OR ANAEROBIC GROWTH IN FIVE DAYS. MD EL MADE AWARE. NO NEW ORDERS AT THIS TIME.
== END 2025-09-09 00:03 | disposition home or self-care (01) ==
PROVIDERS: Emergency Provider Family Medicine; PCP Family Medicine
DX: J11.1 Influenza due to unidentified influenza virus with other respiratory manifestations (principal); Z20.822 Contact with and (suspected) exposure to COVID-19
CPT/HCPCS: 36415; 70491; 71045; 80053; 81003; 81025; 83605; 85025; 87040; 87637; 87651; 96365; 96375; 99284; J1885; J7030; Q9967

== ENCOUNTER 2025-09-09 14:43 | Outpatient (CLI) | payer OTHER, SELFPAY ==
[2025-09-11 05:53] LABS: Hepatitis B Surface Antigen Negative (Negative)
[2025-09-11 05:59] LABS: HAV RESULT Negative (Negative); Hepatitis B Core IgM Result Negative (Negative)
[2025-09-12 11:08] LABS: Anti-CCP Ab, IgG/IgA 16 units (0-19)
[2025-09-12 15:09] LABS: ANA by IFA Rfx Titer/Pattern Positive (.)
== END 2025-09-09 14:44 | disposition home or self-care (01) ==
PROVIDERS: PCP Family Medicine; Visit Provider Family Medicine
DX: R53.83 Other fatigue (principal); R74.01 Elevation of levels of liver transaminase levels
CPT/HCPCS: 36415; 80074; 86038; 86200; 86430